=== PATIENT | female | born 1955 | race Caucasian/White ===

== ENCOUNTER 2018-08-11 13:59 | Emergency (ER) | payer BC ==
--- OUTSIDE RECORDS SUMMARY | 2018-08-11 14:05 | XMS REPORT | Continuity of Care Document ---
:1955 External Reference #:[id number] Author Name Ute Jeffers Care Team Providers Name Role Phone Zohra Klein MD Primary Care Physician Unavailable Payers Type Date Identification Numbers Payment Provider Subscriber Policy Number: [id number] [employer] Courtney Acuña PayID: [id number] [address] [address] [place] [id number] Advance Directives Type Date Description Status Comment Other Directive 06/27/2017 Health Care Proxy Current and Verified Problems Date Description Provider Status Onset: 04/08/2011 Hyperlipidemia Macy Enriquez, N.P. Active Onset: 03/12/2015 Paroxysmal ventricular Brent Phillips M.D., [facility], Active tachycardia [facility] Onset: 04/08/2011 Malignant tumor of urinary Macy Enriquez, N.P. Active bladder Onset: 12/19/2013 Premature beats Brent Phillips M.D., [facility], Active [facility] Onset: 12/18/2014 Palpitations Brent Phillips M.D., [facility], Active [facility] Family History Date Family Member(s) Problem(s) Comments General Heart Disease : (age 58 Father due to [place] Smoker Years) Mother Heart Valve Disease Aortic Valve Replacement, Hyperlipidemia, ? 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 ETOH Use Denies alcohol use Tobacco Use Start: Unknown End: Patient is a former smoker Unknown Recreational Drug Use Never Used Drugs Smoking Status Reviewed: 07/31/18 Patient is a former smoker Exercise Type/Frequency Exercises sporadically Allergies, Adverse Reactions, Alerts Description No Known Drug Allergies Medications Medication Date Status Form Strength Qnty SIG Indications Ordering Provider Nystatin 07/10 Active Ointment [id number] 15gm Apply thin L29.2 t/GM layer on MD [place] affected area twice a day Omeprazole 08/15 Active Capsules 20mg 90cap [address] s every day Varn, N.P. Paroxetine HCL 09/28 Active Tablets 20mg 30tab 1 by mouth s every day Varn, N.P. Metoprolol 01/29 Active Tablets 25mg 60tab 1 by mouth I49.3 Macy Succinate ER 24HR s twice a Varn, N.P. day Crestor 04/16 Active Tablets 10mg 90tab 1 by mouth s every day Varn, N.P. Advil PM Active Capsules 200-25mg 1 po qhs Unknown /0000 Vitamin D-3 Active Capsules 1000Unit 1 by mouth Unknown /0000 every day Bactrim DS 04/30 Hx Tablets 800-160mg 20tab one by s mouth Varn, N.P. - twice a 05/10 day for days Bactrim DS 04/23 Hx Tablets 800-160mg 14tab one by s mouth Varn, N.P. - twice a 04/30 day for days Fluconazole 02/05 Hx Tablets 150mg 2tabs one by mouth december Varn, N.P. - repeat in 07/31 3 days needed Methylprednisolone 09/04 Hx TBPK 4mg QS as M25.511 Oliverio directed HASEEB Solomon - on package 09/09 Ranitidine HCL 06/26 Hx Tablets 150mg 60tab take one K21.9 s tablet by Varn, N.P. - mouth 08/15 twice a day Fluconazole 06/26 Hx Tablets 150mg 2tabs one by N77.1 mouth december Varn, N.P. - repeat in 07/02 3 days needed Lotrisone 06/26 Hx Cream 1-0.05% 15gm apply N77.1 externally Varn, N.P. - bid-tid 07/10 Vitamin D3 05/15 Hx Capsules [id number] 8caps one by mouth once Varn, N.P. - weekly 07/14 Metoprolol 12/18 Hx Tablets 25mg 30tab 1 by mouth 427.69 Brent Succinate ER 24HR s every day Lydia Phillips M.D., 01/29 [facility] Escitalopram 06/25 Hx Tablets 10mg 30tab 1 by mouth F41.9 s every day Varn, N.P. - 09/28 Ciprofloxacin HCL 03/19 Hx Tablets 250mg 14tab one by 599.0 s mouth Varn, N.P. - twice a 03/26 day for days Ebro 07/17 Hx Tablets 5-325mg 40tab 1-2 po s q4-6h prn Sp-Nawaf - post op Sharri oh 08/28 pain Cipro 05/25 Hx Tablets 250mg 14tab one by 599.0 s nouth Varn, N.P. - twice 06/01 daily for 7 days Cephalexin 05/18 Hx Tablets 500mg 21tab one three 706.2 s times Varn, N.P. - daily for 05/25 Cephalexin 06/07 Hx Tablets 500mg 21tab one three 681.02 s times Marina, - daily for M.D., FACP 06/14 Tylenol PM 04/08 Hx Tablets 2 tablets at bedtime Lydia Gray M.D., FACP 04/13 Herbal Menapausal 04/08 Hx 1 qd Lydia Gray M.D., FACP 11/01 Crestor 02/07 Hx Tablets 5mg 30tab Take 1 s Tablet By Cotton, - Mouth Once M.D. 04/16 Medications Administered in Office Medication Date Status Form Strength Qnty SIG Indications Ordering Provider Depomedrol Administered Injection Ninfa 40MG 018 Sharri Ernandez Depomedrol Administered Injection Trihsa 40MG 017 Bitting, RPA-C Depomedrol Administered Injection Trisha 40MG 016 Bitting, RPA-C Technetium TC Administered Injection Zackery Mullen 99M 015 Addi Burrell M.D., FACC, Per Unit Dose FASNC Up To 40 Millicuries Technetium TC Administered Injection Stephen FMichael 99M 015 Addi Garibay M.D. Per Unit Dose Up To 40 Millicuries Celestone 3 mg Administered Injection Ayesha and 3mg 014 Yohan kinney M.D. Technetium TC Administered Injection Brent 99M 013 Addi Phillips M.D., FACC, Per Unit Dose FSCAI Up To 40 Millicuries Celestone 3 mg Administered Injection Ayesha and 3mg 013 Yohan kinney M.D. Celestone 3 mg Administered Injection Ayesha and 3mg 013 Yohan kinney M.D. Celestone 3 mg Administered Injection Ayesha and 3mg 013 Yohan kinney M.D. Celestone 3 mg Administered Injection Ayesha and 3mg 013 Yohan kinney M.D. Celestone 3 mg Administered Injection Ayesah and 3mg 013 Yohan kinney M.D. Celestone 3 mg Administered Injection Ayesha and 3mg 013 Yohan kinney M.D. Immunizations CPT Code Status Date Vaccine Lot # [id number] Given 05/05/2018 Influenza Virus Vaccine, Quadrivalent, Split, Preservative Free 52974 Given 04/10/2017 Pneumonia Vaccine 41487 Given 04/10/2017 Influenza Virus Vaccine, Quadrivalent, Split, Preservative Free 67454 Given 05/05/2016 Tdap - Tetanus/Diptheria/Acellular Pertussis Q2035 Given 04/20/2016 Afluria Vaccine 04986 Given 05/11/2015 Zoster (Zostavax) Q2035 Given 04/27/2015 Afluria Vaccine 36399 Given 04/27/2015 Pneumococcal Conjugate Vaccine 13 Valent For Intramuscular Use 28795 Given 04/22/2014 Influenza Virus 3Yrs & Over 53826 Given 04/22/2014 Influenza Virus 3Yrs & Over Q2035 Given 04/17/2013 Afluria Vaccine Q2038 Given 04/19/2012 Fluzone Vaccine 70068 Given 04/28/2011 Influenza Virus 3Yrs & Over 38985 Given 05/28/2007 Influenza Virus 3Yrs & Over 43412 Given 12/05/2006 Tdap - Tetanus/Diptheria/Acellular Pertussis Vital Signs Date Vital Result Comment 07/31/2018 10:17am Height 56 inches 4'8" Weight 154.75 lb Heart Rate 80 /min BP Systolic 132 mmHg BP Diastolic 73 mmHg Body Temperature 97.3 F O2 % BldC Oximetry 97 % BMI (Body Mass Index) 34.7 kg/m2 07/10/2018 4:24pm Height 58 inches 4'10" Weight 151.00 lb Heart Rate 74 /min BP Systolic 127 mmHg BP Diastolic 82 mmHg Body Temperature 97.9 F O2 % BldC Oximetry 98 % BMI (Body Mass Index) 31.6 kg/m2 05/09/2018 3:43pm Height 58 inches 4'10" Weight 156.00 lb Heart Rate 80 /min BP Systolic Sitting 116 mmHg BP Diastolic Sitting 68 mmHg BP Systolic Standing 118 mmHg BP Diastolic Standing 68 mmHg BMI (Body Mass Index) 32.6 kg/m2 11/29/2017 2:31pm Heart Rate 91 /min BP Systolic 126 mmHg BP Diastolic 82 mmHg Respiratory Rate 16 /min Body Temperature 98.1 F Pain Level 5 09/04/2017 3:53pm Heart Rate 90 /min BP Systolic 138 mmHg BP Diastolic 80 mmHg Body Temperature 97.6 F O2 % BldC Oximetry 97 % 06/26/2017 9:15am Height 59 inches 4'11" Weight 148.75 lb Heart Rate 78 /min BP Systolic 122 mmHg BP Diastolic 82 mmHg Body Temperature 97.3 F O2 % BldC Oximetry 94 % BMI (Body Mass Index) 30.0 kg/m2 03/08/2017 8:49am Height 59 inches 4'11" Heart Rate 76 /min BP Systolic 124 mmHg BP Diastolic 84 mmHg Body Temperature 97.9 F 07/20/2016 2:35pm Height 58 inches 4'10" Weight 142.00 lb Heart Rate 78 /min BP Systolic 125 mmHg BP Diastolic 77 mmHg BMI (Body Mass Index) 29.7 kg/m2 05/27/2016 1:27pm Height 57.5 inches 4'9.50" Weight 141.00 lb Heart Rate 86 /min BP Systolic Sitting 122 mmHg BP Diastolic Sitting 76 mmHg Respiratory Rate 15 /min Body Temperature 98.4 F O2 % BldC Oximetry 98 % BMI (Body Mass Index) 30.0 kg/m2 02/25/2016 2:07pm Height 56 inches 4'8" Weight 139.00 lb w/o shoes Heart Rate 94 /min BP Systolic Sitting 120 mmHg Ra reg cuff BP Diastolic Sitting 82 mmHg Ra reg cuff BP Systolic Standing 118 mmHg Ra reg cuff BP Diastolic Standing 80 mmHg Ra reg cuff BMI (Body Mass Index) 31.2 kg/m2 Ejection Fraction 66% echo 11/22/11 05/22/2015 3:04pm Height 56 inches 4'8" Weight 140.00 lb Heart Rate 82 /min BP Systolic Sitting 124 mmHg BP Diastolic Sitting 85 mmHg Body Temperature 96.9 F O2 % BldC Oximetry 98 % BMI (Body Mass Index) 31.4 kg/m2 03/12/2015 2:06pm Height 58 inches 4'10" Weight 139.00 lb Heart Rate 76 /min 94 BP Systolic Sitting 124 mmHg right arm, reg cuff BP Diastolic Sitting 78 mmHg right arm, reg cuff BP Systolic Standing 118 mmHg right arm, reg cuff BP Diastolic Standing 74 mmHg right arm, reg cuff Respiratory Rate 16 /min BMI (Body Mass Index) 29.0 kg/m2 Ejection Fraction 67% 02/18/15 Nem 01/29/2015 2:37pm Height 58 inches 4'10" Weight 138.00 lb Heart Rate 74 /min 82 BP Systolic Sitting 122 mmHg left arm, reg cuff BP Diastolic Sitting 84 mmHg left arm, reg cuff BP Systolic Standing 120 mmHg left arm, reg cuff BP Diastolic Standing 84 mmHg left arm, reg cuff Respiratory Rate 16 /min BMI (Body Mass Index) 28.8 kg/m2 Ejection Fraction 66% 11/22/11 12/18/2014 2:03pm Height 58 inches 4'10" Weight 132.00 lb Heart Rate 90 /min 108 BP Systolic Sitting 126 mmHg right arm, reg cuff BP Diastolic Sitting 70 mmHg right arm, reg cuff BP Systolic Standing 124 mmHg right arm, reg cuff BP Diastolic Standing 70 mmHg right arm, reg cuff Respiratory Rate 16 /min BMI (Body Mass Index) 27.6 kg/m2 Ejection Fraction 66% 11/22/11 06/25/2014 9:16am Weight 139.00 lb Heart Rate 89 /min BP Systolic Sitting 138 mmHg BP Diastolic Sitting 72 mmHg Body Temperature 98.5 F O2 % BldC Oximetry 97 % 05/28/2014 8:20am Height 58 inches 4'10" Weight 138.00 lb Heart Rate 93 /min BP Systolic 135 mmHg BP Diastolic 83 mmHg BMI (Body Mass Index) 28.8 kg/m2 05/16/2014 1:21pm Height 58 inches 4'10" Heart Rate 90 /min BP Systolic 132 mmHg BP Diastolic 87 mmHg 05/02/2014 3:13pm Height 58 inches 4'10" Weight 138.00 lb Heart Rate 120 /min BP Systolic Sitting 118 mmHg BP Diastolic Sitting 64 mmHg BMI (Body Mass Index) 28.8 kg/m2 04/11/2014 1:07pm Height 58 inches 4'10" Weight 135.00 lb Heart Rate 83 /min BP Systolic 133 mmHg BP Diastolic 80 mmHg BMI (Body Mass Index) 28.2 kg/m2 03/19/2014 10:27am Weight 138.75 lb Heart Rate 106 /min BP Systolic 110 mmHg BP Diastolic 70 mmHg Body Temperature 98.0 F 12/19/2013 3:05pm Height 56 inches 4'8" Weight 139.00 lb Heart Rate 94 /min 102 BP Systolic Sitting 122 mmHg left arm, reg cuff BP Diastolic Sitting 80 mmHg left arm, reg cuff BP Systolic Standing 124 mmHg left arm, reg cuff BP Diastolic Standing 86 mmHg left arm, reg cuff Respiratory Rate 20 /min BMI (Body Mass Index) 31.2 kg/m2 09/25/2013 12:48pm Heart Rate 92 /min BP Systolic Sitting 120 mmHg BP Diastolic Sitting 76 mmHg Respiratory Rate 16 /min 07/17/2013 9:55am Height 58 inches 4'10" Weight 135.00 lb Heart Rate 83 /min BP Systolic 124 mmHg BP Diastolic 81 mmHg BMI (Body Mass Index) 28.2 kg/m2 05/30/2013 9:27am Height 56.5 inches 4'8.50" Weight 137.00 lb Heart Rate 00138 /min BP Systolic Sitting 112 mmHg LA reg cuff BP Diastolic Sitting 84 mmHg LA reg cuff BP Systolic Standing 118 mmHg LA BP Diastolic Standing 86 mmHg LA Respiratory Rate 16 /min BMI (Body Mass Index) 30.2 kg/m2 04/19/2013 2:52pm Height 56.25 inches 4'8.25" Weight 138.00 lb Heart Rate 100 /min BP Systolic Sitting 122 mmHg BP Diastolic Sitting 80 mmHg BMI (Body Mass Index) 30.7 kg/m2 05/25/2012 2:27pm Height 56.25 inches 4'8.25" Weight 137.00 lb Heart Rate 86 /min BP Systolic Sitting 124 mmHg BP Diastolic Sitting 68 mmHg BMI (Body Mass Index) 30.4 kg/m2 05/18/2012 3:53pm Height 56.25 inches 4'8.25" Weight 136.00 lb Heart Rate 56 /min BP Systolic Sitting 104 mmHg BP Diastolic Sitting 70 mmHg BMI (Body Mass Index) 30.2 kg/m2 05/16/2012 10:03am Height 56.25 inches 4'8.25" Heart Rate 84 /min BP Systolic Sitting 114 mmHg BP Diastolic Sitting 68 mmHg 04/13/2012 2:58pm Height 56.25 inches 4'8.25" Weight 136.00 lb Heart Rate 80 /min BP Systolic Sitting 130 mmHg BP Diastolic Sitting 78 mmHg BMI (Body Mass Index) 30.2 kg/m2 11/09/2011 10:41am Height 56.5 inches 4'8.50" Weight 138.75 lb Heart Rate 76 /min BP Systolic Sitting 120 mmHg BP Diastolic Sitting 74 mmHg BMI (Body Mass Index) 30.6 kg/m2 11/02/2011 10:31am Height 56.5 inches 4'8.50" Weight 138.00 lb Heart Rate 100 /min irregular BP Systolic Sitting 110 mmHg BP Diastolic Sitting 72 mmHg BMI (Body Mass Index) 30.4 kg/m2 06/07/2011 4:26pm Height 56.5 inches 4'8.50" Heart Rate 80 /min BP Systolic Sitting 110 mmHg l BP Diastolic Sitting 74 mmHg l Body Temperature 97.7 F 04/08/2011 2:43pm Height 56.5 inches 4'8.50" Weight 132.00 lb Heart Rate 84 /min BP Systolic 104 mmHg BP Diastolic 62 mmHg BMI (Body Mass Index) 29.1 kg/m2 02/16/2011 1:41pm Height 56.5 inches 4'8.50" Weight 131.00 lb Heart Rate 72 /min BP Systolic Sitting 98 mmHg BP Diastolic Sitting 66 mmHg BMI (Body Mass Index) 28.8 kg/m2 Results Test Date Facility Test Result H/L Range Note Comp Metabolic Panel 07/21/2018 [facility] Sodium 140 mmol/L N 135-[address] [place] [address] [phone] Potassium 4.4 mmol/L N 3.5-5.0 Chloride 103 mmol/L N 101-111 Co2 Carbon Dioxide 29 mmol/L N 22-32 Anion Gap 8 mmol/L N 2-11 Glucose 103 mg/dL High 70-100 Blood Urea Nitrogen 17 mg/dL N 6-24 Creatinine 0.75 mg/dL N 0.51-0.95 BUN/Creatinine Ratio 22.7 High 8-20 Calcium 10.0 mg/dL N 8.6-10.3 Total Protein 7.1 g/dL N 6.4-8.9 Albumin 4.5 g/dL N 3.2-5.2 Globulin 2.6 g/dL N 2-4 Albumin/Globulin Ratio 1.7 N 1-3 Total Bilirubin 0.80 mg/dL N 0.2-1.0 Alkaline Phosphatase 140 U/L High 34-104 Alt 41 U/L N 7-52 Ast 24 U/L N 13-39 Egfr Non- 78.0 >60 Egfr 94.4 >60 1 Laboratory test 07/21/2018 [facility] TSH (Thyroid 2.46 mcIU/mL N 0.34-5.[address] Stim Horm) [place] [address] [phone] Vitamin D Total 25(Oh) 28.4 ng/mL N 20-50 Lipid Profile 07/21/2018 [facility] Triglycerides 207 mg/dL 2 (Trig/Chol/HDL) [address] [place] [address] [phone] Cholesterol 215 mg/dL 3 HDL Cholesterol 49.4 mg/dL 4 LDL Cholesterol 124 mg/dL 5 Urine Culture And 04/24/2018 [facility] Urine SEE RESULT [address] [place] [address] [phone] Laboratory test 06/26/2017 [facility] HPV Rna Negative Negative 7, [address] Ww/[place] [address] Genotype [phone] Cytology SEE RESULT BELOW 9 Comp Metabolic Panel 06/09/2017 [facility] Sodium 135 mmol/L N 133-[address] [place] [address] [phone] Potassium 4.2 mmol/L N 3.5-5.0 Chloride 101 mmol/L N 101-111 Co2 Carbon Dioxide 27 mmol/L N 22-32 Anion Gap 7 mmol/L N 2-11 Glucose 93 mg/dL N 70-100 Blood Urea Nitrogen 24 mg/dL N 6-24 Creatinine 0.75 mg/dL N 0.51-0.95 BUN/Creatinine Ratio 32.0 High 8-20 Calcium 9.9 mg/dL N 8.6-10.3 Total Protein 7.3 g/dL N 6.4-8.9 Albumin 4.4 g/dL N 3.2-5.2 Globulin 2.9 g/dL N 2-4 Albumin/Globulin Ratio 1.5 N 1-3 Total Bilirubin 0.60 mg/dL N 0.2-1.0 Alkaline Phosphatase 111 U/L High 34-104 Alt 38 U/L N 7-52 Ast 20 U/L N 13-39 Egfr Non- 78.3 N >60 Egfr 100.7 N >60 10 Lipid Profile 06/09/2017 [facility] Triglycerides 190 mg/dL N 11 (Trig/Chol/HDL) [address] [place], [place] [id number] [phone] Cholesterol 209 mg/dL N 12 HDL Cholesterol 50.7 mg/dL N 13 LDL Cholesterol 120 mg/dL N 14 Laboratory test 07/05/2016 [facility] Vitamin D Total 30.7 ng/ mL N 30-[address] 25(Oh) [place] [address] [phone] Laboratory test 06/22/2016 [facility] Surgical Pathology SEE RESULT [address] [place] [address] [phone] Lipid Profile 05/11/2016 [facility] Triglycerides 188 mg/dL N 16 (Trig/Chol/HDL) [address] [place] [address] [phone] Cholesterol 203 mg/dL N 17 HDL Cholesterol 50.5 mg/dL N 18 LDL Cholesterol 115 mg/dL N 19 Comp Metabolic Panel 05/11/2016 [facility] Sodium 137 mmol/L N 133-145 [address] [place] [address] [phone] Potassium 4.3 mmol/L N 3.5-5.0 Chloride 102 mmol/L N 101-111 Co2 Carbon Dioxide 24 mmol/L N 22-32 Anion Gap 11 mmol/L N 2-11 Glucose 91 mg/dL N 70-100 Blood Urea Nitrogen 15 mg/dL N 6-24 Creatinine 0.68 mg/dL N 0.51-0.95 BUN/Creatinine Ratio 22.1 High 8-20 Calcium 9.4 mg/dL N 8.6-10.3 Total Protein 6.8 g/dL N 6.4-8.9 Albumin 4.0 g/dL N 3.2-5.2 Globulin 2.8 g/dL N 2-4 Albumin/Globulin Ratio 1.4 N 1-3 Total Bilirubin 0.70 mg/dL N 0.2-1.0 Alkaline Phosphatase 74 U/L N 34-104 Alt 24 U/L N 7-52 Ast 19 U/L N 13-39 Egfr Non- 88.0 N >60 Egfr 113.1 N >60 20 Laboratory test 05/11/2016 [facility] TSH (Thyroid 1.55 mcIU/mL N 0.34-5.[address] Stim Horm) [place] [address] [phone] Vitamin D Total 25(Oh) 10.9 ng/mL Low 30-50 Comp Metabolic Panel 05/06/2015 [facility] Sodium 140 mmol/L N 133-145 [address] [place] [address] [phone] Potassium 4.0 mmol/L N 3.5-5.0 Chloride 105 mmol/L N 101-111 Co2 Carbon Dioxide 29 mmol/L N 22-32 Anion Gap 6 mmol/L N 2-11 Glucose 96 mg/dL N 70-100 Blood Urea Nitrogen 13 mg/dL N 6-24 Creatinine 0.62 mg/dL N 0.51-0.95 BUN/Creatinine Ratio 21.0 High 8-20 Calcium 9.6 mg/dL N 8.6-10.3 Total Protein 6.9 g/dL N 6.4-8.9 Albumin 4.3 g/dL N 3.2-5.2 Globulin 2.6 g/dL N 2-4 Albumin/Globulin Ratio 1.7 N 1-3 Total Bilirubin 0.70 mg/dL N 0.2-1.0 Alkaline Phosphatase 78 U/L N 34-104 Alt 24 U/L N 7-52 Ast 20 U/L N 13-39 Egfr Non- 98.2 N >60 Egfr 126.3 N >60 21 Lipid Profile 05/06/2015 [facility] Triglycerides 174 mg/dL N 22 (Trig/Chol/HDL) [address] [place] [address] [phone] Cholesterol 195 mg/dL N 23 HDL Cholesterol 54.8 mg/dL N 24 LDL Cholesterol 105 mg/dL N 25 Basic Metabolic Panel 01/29/2015 Sodium 137 mmol/L N 133-145 Potassium 4.2 mmol/L N 3.5-5.0 Chloride 103 mmol/L N 101-111 Co2 Carbon Dioxide 27 mmol/L N 22-32 Anion Gap 7 mmol/L N 2-11 Glucose 86 mg/dL N 70-100 Blood Urea Nitrogen 14 mg/dL N 6-24 Creatinine 0.65 mg/dL N 0.51-0.95 BUN/Creatinine Ratio 21.5 High 8-20 Calcium 9.8 mg/dL N 8.6-10.3 Egfr Non- 93.0 N >60 Egfr 119.6 N >60 26 Laboratory test 01/29/2015 Magnesium 2.2 mg/dL N 1.9-2.7 finding Laboratory test 05/02/2014 [facility] Cytology RUN DATE: [address] 05/05/ <[place] [address] NOTE> [phone] HPV High Risk 05/02/2014 [facility] Human Papillomavirus See Comment N [address] [place] [address] [phone] HPV High Risk Type 16, PCR Negative N Negative HPV High Risk Type 18, PCR Negative N Negative HPV Other Risk types Negative N Negative 29 Urinalysis Profile 03/19/2014 [facility] Urine Color Yellow N [address] [place] [address] [phone] Urine Appearance Cloudy N Urine Specific [place] 1.016 N 1.010-1.030 Urine pH 7.0 N 5-9 Urine Urobilinogen Negative N Negative Urine Ketones Negative N Negative Urine Protein Negative N Negative Urine Leukocytes 2+ Abnormal Negative Urine Blood 1+ Abnormal Negative Urine Nitrite Negative N Negative Urine Bilirubin Negative N Negative Urine Glucose Negative N Negative Urine White Blood Cell 1+(6-10/hpf) Abnormal Absent Urine Red Blood Cell 2+(6-10/hpf) Abnormal Absent Urine Bacteria Absent N Absent Urine Squamous Epithelial Cell Present Abnormal Absent Urine Calcium Oxalate Cryst Present Abnormal Absent Urine Culture And 03/19/2014 [facility] Urine Culture (SEE NOTE ) 30 [address] [place] [address] [phone] Ua Routine 03/19/2014 [facility] [employer] [facility] Ua Specific 1.005 [place] Ua PH 7.5 Ua Color yellow Ua Appera clear Ua WBC mod Ua Protein trace Ua Glucose neg Ua Ketones trace Ua Bilirubin trace Ua Urobilinogen normal Ua Nitrite neg Ua Occult Blood trace Lipid Profile 03/19/2014 [facility] Triglycerides 219 mg/dL N 31 (Trig/Chol/HDL) [address] [place] [address] [phone] Cholesterol 201 mg/dL N 32 HDL Cholesterol 56.2 mg/dL N 33 LDL Cholesterol 101 mg/dL N 34 Liver Function 03/19/2014 [facility] Total Protein 6.8 g/dL N 6.4-8.9 Panel [address] [place] [address] [phone] Albumin 4.3 g/dL N 3.2-5.2 Globulin 2.5 g/dL N 2-4 Albumin/Globulin Ratio 1.7 N 1-3 Total Bilirubin 0.60 mg/dL N 0.2-1.0 Direct Bilirubin 0.10 mg/dL N 0.03-0.18 Indirect Bilirubin 0.5 mg/dL N 0.3-1.0 Alkaline Phosphatase 77 U/L N 34-104 Alt 16 U/L N 7-52 Ast 14 U/L N 13-39 Lipid Profile 06/05/2013 [facility] Triglycerides 105 mg/dL 40-200 (Trig/Chol/HDL) [address] [place] [address] [phone] Cholesterol 192 mg/dL Less than 200 HDL Cholesterol 64 mg/dL High 40-60 35 Cholesterol/HDL Ratio 3.0 Average 1-4.44 LDL Cholesterol 107.0 High Less Than 100 36 Liver Function 06/05/2013 [facility] Total Protein 6.4 g/dL 6.2-8.1 Panel [address] [place] [address] [phone] Albumin 3.9 g/dL 3.6-5.4 Globulin 2.5 g/dL 2-4 Albumin/Globulin Ratio 1.6 1-3 Total Bilirubin 0.5 mg/dL 0.4-1.5 Direct Bilirubin 0.1 mg/dL 0.1-0.5 Indirect Bilirubin 0.4 mg/dL 0.3-1.0 Alkaline Phosphatase 70 U/L 30-110 Alt 20 U/L 14-54 Ast 21 U/L 12-42 Laboratory 06/05/2013 [facility] Hepatitis C Nonreactive Nonreactive 37 test finding [address] [facility] [place] [address] [phone] Comp Metabolic 04/10/2013 [facility] Sodium 139 mmol/L 133- 145 Panel [address] [place] [address] [phone] Potassium 4.3 mmol/L 3.5-5.0 Chloride 105 mmol/L 101-111 Co2 Carbon Dioxide 27.0 mmol/L 22-32 Anion Gap 7.0 mmol/L 2-11 Glucose 99 mg/dL 70-100 Blood Urea Nitrogen 12 mg/dL 6-24 Creatinine 0.60 mg/dL 0.50-1.40 BUN/Creatinine Ratio 20.0 8-20 Calcium 10.0 mg/dL High 8.1-9.9 Total Protein 6.3 g/dL 6.2-8.1 Albumin 3.9 g/dL 3.6-5.4 Globulin 2.4 g/dL 2-4 Albumin/Globulin Ratio 1.6 1-3 Total Bilirubin 0.6 mg/dL 0.4-1.5 Alkaline Phosphatase 58 U/L 30-110 Alt 24 U/L 14-54 Ast 21 U/L 12-42 Egfr Non- 102.7 >60 Egfr 132.1 >60 38 Laboratory 04/10/2013 [facility] TSH (Thyroid 0.89 0.34-5.60 test finding [address] [facility] Stimulating miu/[place] [address] [facility]) [phone] Lipid Profile 04/10/2013 [facility] Triglycerides 201 mg/dL High 40-200 (Trig/Chol/HDL [address] ) [place] [address] [phone] Cholesterol 235 mg/dL High Less than 200 HDL Cholesterol 61 mg/dL High 40-60 39 Cholesterol/HDL Ratio 3.9 Average 1-4.44 LDL Cholesterol 133.8 High Less Than 100 40 Ua W/Microscopic 05/25/2012 [facility] [employer] [employer] [facility] Ua Appera Cloudy Ua Bacteria NEG Ua Bilirubin Negative Ua Blood Large Ua Casts Hyaline NEG Ua Casts Other NEG Ua Color Brown/Red Ua Crystals NEG Ua Epithelial Cells NEG Ua Glucose Negative Ua Ketones Negative Ua Leuko Negative Ua Nitrite Negative Ua PH 5 Ua Protein 30 Ua RBC MOD Ua Specific [place] 1.025 Ua Urobilinogen Negative Ua WBC FEW Ua Yeast NEG Urine Culture & 05/25/2012 [facility] Urine Culture (SEE NOTE) [address] [place] [address] [phone] Laboratory test 05/18/2012 [facility] Surgical Pathology RUN DATE: [address] [place] [address] <SEE NOTE> [phone] Laboratory test 04/18/2012 [facility] TSH 0.83 0.34- finding DRIVE MIU/ML 5.60 [place] [address] [phone] Lipid Profile 04/18/2012 [facility] Triglyceride 82 mg/dL 40- 20 (Trig/Chol/HDL) [address] [place] [address] [phone] Cholesterol 197 mg/dL Less Than 200 43 High Density Lipoprotein 57 mg/dL 40-60 44 Cholesterol/HDL Ratio 3.46 AVERAGE 1-4.44 Low Density Lipoprotein 124 mg/dL High Less Than 100 45 Comp Metabolic Panel 04/18/2012 [facility] Sodium 140 mmol/L 135-[address] [place] [address] [phone] Potassium 4.3 mmol/L 3.5-5.0 Chloride 110 mmol/L 101-111 Co2 (Carbon Dioxide) 25.0 mmol/L 22-32 Anion Gap 5.0 mmol/L 2-11 46 Glucose 98 mg/dL 70-100 BUN 21 mg/dL 6-24 Creatinine 0.6 mg/dL 0.50-1.40 One Over Creatinine 1.66 BUN/Creatinine Ratio 35.0 High 8-20 Calcium 9.5 mg/dL 8.1-9.9 Total Protein 6.7 GM/DL 6.2-8.1 Albumin 3.9 GM/DL 3.6-5.4 Globulin 2.8 GM/DL 2-4 Albumin/Globulin Ratio 1.4 1-3 Bilirubin Total 0.7 mg/dL 0.4-1.5 47 Alkaline Phosphatase 61 U/L 30-110 Alt (SGPT) 27 U/L 14-54 Ast (Sgot) 23 U/L 12-42 eGFR Non- 103.0 > 60 eGFR 132.5 > 60 48 Ua Routine 04/13/2012 [facility] Ua Specific [place] 1.010 Ua PH 5 Ua Color dark yellow Ua Appera clear Ua WBC neg Ua Protein neg Ua Glucose neg Ua Ketones neg Ua Bilirubin neg Ua Urobilinogen neg Ua Nitrite neg Ua Occult Blood Non hem trace CBC With Manual 11/02/2011 [facility] White Blood 6.9 CUMM 4.8-10.[address] [place] [address] [phone] Red Cell Count 4.40 CUMM 4.2-5.4 Hemoglobin 13.7 g/dL 12.0-16.0 Hematocrit 40 % 35-47 Mean Corpuscular Volume 91 um3 79-97 Mean Corpuscular Hemoglob 31 pg 27-31 Mean Corpuscular HGB Cone 34 g/dL 32-36 Redcell Distribution WDTH 14 % 10.5-15 Platelet Count 319 CUMM 150-450 Mean Platelet Volume 10.1 um3 7.4-10.4 Polysegmented Neutrophil 50 % 38-83 Lymphocyte 45 % 25-47 Monocyte 3 % 0-13 Eosinophil 1 % 0-6 Basophil 1 % 0-2 Absolute Neutrophil Count 3.4 RBC Morphology NORMAL Comp Metabolic Panel 11/02/2011 [facility] Sodium 138 mmol/L 135-[address] [place] [address] [phone] Potassium 3.9 mmol/L 3.5-5.0 Chloride 99 mmol/L Low 101-111 Co2 (Carbon Dioxide) 26.0 mmol/L 22-32 Anion Gap 13.0 mmol/L High 2-11 49 Glucose 102 mg/dL High 70-100 BUN 15 mg/dL 6-24 Creatinine 0.5 mg/dL Low 0.50-1.40 One Over Creatinine 2.00 BUN/Creatinine Ratio 30.0 High 8-20 Calcium 9.6 mg/dL 8.1-9.9 Total Protein 7.4 GM/DL 6.2-8.1 Albumin 4.2 GM/DL 3.6-5.4 Globulin 3.2 GM/DL 2-4 Albumin/Globulin Ratio 1.3 1-3 Bilirubin Total 1.0 mg/dL 0.4-1.5 50 Alkaline Phosphatase 66 U/L 30-110 Alt (SGPT) 26 U/L 14-54 Ast (Sgot) 22 U/L 12-42 eGFR Non- 127.6 > 60 eGFR 164.1 > 60 51 Laboratory test 11/02/2011 [facility] TSH 1.04 MIU/ML 0.34- 5.60 finding [address] [place] [address] [phone] Troponin-I 0 NG/ML 0-0.06 52 Lipid Profile 04/13/2011 [facility] Triglyceride 80 mg/dL 40- 200 (Trig/Chol/HDL) [address] [place] [address] [phone] Cholesterol 201 mg/dL High Less Than 200 53 High Density Lipoprotein 62 mg/dL High 40-60 54 Cholesterol/HDL Ratio 3.24 AVERAGE 1-4.44 Low Density Lipoprotein 123 mg/dL High Less Than 100 55 Comp Metabolic Panel 04/13/2011 [facility] Sodium 139 mmol/L 135-145 [address] [place] [address] [phone] Potassium 4.2 mmol/L 3.5-5.0 Chloride 107 mmol/L 101-111 Co2 (Carbon Dioxide) 27.0 mmol/L 22-32 Anion Gap 5.0 mmol/L 2-11 56 Glucose 93 mg/dL 70-100 BUN 14 mg/dL 6-24 Creatinine 0.6 mg/dL 0.50-1.40 One Over Creatinine 1.66 BUN/Creatinine Ratio 23.3 High 8-20 Calcium 9.4 mg/dL 8.1-9.9 Total Protein 6.5 GM/DL 6.2-8.1 Albumin 3.9 GM/DL 3.6-5.4 Globulin 2.6 GM/DL 2-4 Albumin/Globulin Ratio 1.5 1-3 Bilirubin Total 1.0 mg/dL 0.4-1.5 57 Alkaline Phosphatase 56 U/L 30-110 Alt (SGPT) 27 U/L 14-54 Ast (Sgot) 26 U/L 12-42 eGFR Non- 103.4 > 60 eGFR 133.0 > 60 58 Laboratory test 04/13/2011 [facility] TSH 1.71 MIU/ML 0.34- 5.[address] [place] [address] [phone] Laboratory test 04/08/2011 [facility] Cytology [address] ---- <[place] [address] NOTE> [phone] 1 Because ethnic data is not always readily available, this report includes an eGFR for both -Americans and non- Americans. The National Kidney Disease Education Program (NKDEP) does not endorse the use of the MDRD equation for patients that are not between the ages of 18 and 70, are , have extremes of body size, muscle mass, or nutritional status, or are non- or non-. According to the National Kidney Foundation, irrespective of diagnosis, the stage of the disease is based on the level of kidney function: Stage Description GFR(mL/min/1.73 m(2)) 1 Kidney damage with normal or decreased GFR 90 2 Kidney damage with mild decrease in GFR 60-89 3 Moderate decrease in GFR 30-59 4 Severe decrease in GFR 15-29 5 Kidney failure <15 (or dialysis) 2 Desirable: <150 Borderline High: 150-199 High: 200-499 Very High: >500 3 Desirable: <200 Borderline High: 200-239 High: >239 4 Low: <40 Desirable: 40-60 High: >60 5 Desirable: <100 Near Optimal: 100-129 Borderline High: 130-159 High: 160-189 Very High: >189 6 SEE RESULT BELOW Name: COURTNEY ACUÑA : [address]: Macy Enriquez NP Acct: [id number] Unit: [id number] AGE: 62 Location: [facility] Re04/24/18 SEX: F Status: REG REF SPEC: [id number] MIKEY: 04/24/[address] [facility] [address]: Macy Enriquez NP REQ: [id number] RECD: 04/24/18 STATUS: RES _ SOURCE: URINE SPDESC: ORDERED: Urine Culture QUERIES: Urine Source: Clean Catch Procedure Result Reported Site Urine Culture Preliminary 04/27/18- 814 ML Organism 1 STAPHYLOCOCCUS AUREUS Western Count 10-25,000 (Moderate) CFU/ML Organism 2 NORMAL RONI Western Count 50-75,000 (Many) CFU/ML * ML - Main Lab . END OF REPORT DEPARTMENT OF PATHOLOGY, [address] [place] [address] Surinder Hernandez M.D. Director [facility] # [id number] The high-risk HPV types detected by the assay include: 16, 18, 31, 33, 35, 39, 45, 51, 52, 56, 58, 59, 66, and 68. 9 SEE RESULT BELOW Name: COURTNEY ACUÑA Ken : 1955 Attend : Macy Enriquez NP Acct: [id number] Unit: [id number] AGE: 61 Location: [facility] Re06/26/17 SEX: F Status: REG REF SPEC: [id number] MIKEY: 06/26/17-[address] [facility] [address]: Macy Enriquez NP REQ: [id number] RECD: 06/26/17-1056 STATUS: SOUT _ ORDERED: TP IMAGE ANAL, HPV/Thin Prep, HPV 16/18 GENE COMMENTS: [id number] FINAL DIAGNOSIS Negative for Intraepithelial lesion or Malignancy A. Ectocervical/Endocervical Specimen Adequacy: Satisfactory of evaluation Transformation zone component cannot be definitely identified due to presence of atrophy or other hormonal changes Patient Information: HPV: High risk HPV RNA testing regardless of pap results. 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 had cone biopsy. Date Time Test Result Flag (u) Normal Range 06/26/17 0957 HPV RNA RFLX GE Negative Negative The high-risk HPV types detected by the assay include: 16, 18, 31, 33, 35, 39, 45, 51, 52, 56, 58, 59, 66, and 68. Signed (signature on file) STERLING Alejo(ASCP) 06/27 5596 This Pap test was evaluated with the assistance of the [employer] MediaPrep Test Imaging System. Due to cytologic findings at the assistant men's soccer coach microscope, comprehensive manual rescreening by a Community Organization Worker may be required. The Pap Smear is a screening test designed to aid in the detection of premalignant and malignant conditions of the uterine cervix. It is not a diagnostic procedure and should not be used as the sole means of detecting cervical cancer. Both false- positive and false- negative reports do occur. Depending on your risk status, a Pap smear should be obtained and evaluated every 1-3 years. END OF REPORT RUN DATE: 06/27/17 [facility] LAB LIVE PAGE 1 Patient: COURTNEY ACUÑA [id number] (Continued) * ML=Testing performed at Main Lab DEPARTMENT OF PATHOLOGY, [address] [place] [address] Surinder Hernandez M.D. Director [facility] # [id number] 10 Because ethnic data is not always readily available, this report includes an eGFR for both -Americans and non- Americans. The National Kidney Disease Education Program (NKDEP) does not endorse the use of the MDRD equation for patients that are not between the ages of 18 and 70, are , have extremes of body size, muscle mass, or nutritional status, or are non- or non-. According to the National Kidney Foundation, irrespective of diagnosis, the stage of the disease is based on the level of kidney function: Stage Description GFR(mL/min/1.73 m(2)) 1 Kidney damage with normal or decreased GFR 90 2 Kidney damage with mild decrease in GFR 60-89 3 Moderate decrease in GFR 30-59 4 Severe decrease in GFR 15-29 5 Kidney failure <15 (or dialysis) 11 Desirable: <150 Borderline High: 150-199 High: 200-499 Very High: >500 12 Desirable: <200 Borderline High: 200-239 High: >239 13 Low: <40 Desirable: 40-60 High: >60 14 Desirable: <100 Near Optimal: 100-129 Borderline High: 130-159 High: 160-189 Very High: >189 15 SEE RESULT BELOW Name: COURTNEY ACUÑA : [address]: Dakota Gomes MD Acct: [id number] Unit: [id number] AGE: 60 Location: ENDO Re06/22/16 SEX: F Status: DEP REF SPEC: [id number] MIKEY: 06/22/16- SUBM DR: Dakota Gomes MD REQ: [id number] RECD: 06/22/161543 STATUS: AMANDA MCMAHAN DR: Macy Enriquez FLIGHT ATTENDANT _ ORDERED: LEVEL IV FINAL DIAGNOSIS Colon, transverse, biopsy: -- Tubular adenoma. -- No high grade dysplasia or malignancy. CLINICAL HISTORY No history given POST-OPERATIVE DIAGNOSIS Colonoscopy into terminal ileum, prep good - small transverse colon polyp removed. Conclusions/Plan: Small polyp removed GROSS DESCRIPTION The specimen is received in formalin labeled, Biopsy Transverse Colon Polyp, and consists of a 0.5 x 0.2 x 0.2 cm justice-pink irregular soft tissue fragment, which is submitted entirely in one cassette. Signed (signature on file) Shannon Workman MD 05/29 1203 END OF REPORT * ML=Testing performed at Main Lab DEPARTMENT OF PATHOLOGY, [address] [place] [address] Surinder Hernandez M.D. Director [facility] # [id number] Desirable <150 Borderline high 150-199 High 200-499 Very High >500 17 Desirable <200 Borderline high 200-239 High >239 18 Low <40 Desirable: 40-60 High: >60 19 Desirable: <100 mg/dL Near Optimal: 100-129 mg/dL Borderline High: 130-159 mg/dL High: 160-189 mg/dL Very High: >189 mg/dL 20 Because ethnic data is not always readily available, this report includes an eGFR for both -Americans and non- Americans. The National Kidney Disease Education Program (NKDEP) does not endorse the use of the MDRD equation for patients that are not between the ages of 18 and 70, are , have extremes of body size, muscle mass, or nutritional status, or are non- or non-. According to the National Kidney Foundation, irrespective of diagnosis, the stage of the disease is based on the level of kidney function: Stage Description GFR(mL/min/1.73 m(2)) 1 Kidney damage with normal or decreased GFR 90 2 Kidney damage with mild decrease in GFR 60-89 3 Moderate decrease in GFR 30-59 4 Severe decrease in GFR 15-29 5 Kidney failure <15 (or dialysis) 21 Because ethnic data is not always readily available, this report includes an eGFR for both -Americans and non- Americans. The National Kidney Disease Education Program (NKDEP) does not endorse the use of the MDRD equation for patients that are not between the ages of 18 and 70, are , have extremes of body size, muscle mass, or nutritional status, or are non- or non-. According to the National Kidney Foundation, irrespective of diagnosis, the stage of the disease is based on the level of kidney function: Stage Description GFR(mL/min/1.73 m(2)) 1 Kidney damage with normal or decreased GFR 90 2 Kidney damage with mild decrease in GFR 60-89 3 Moderate decrease in GFR 30-59 4 Severe decrease in GFR 15-29 5 Kidney failure <15 (or dialysis) 22 Desirable <150 Borderline high 150-199 High 200-499 Very High >500 23 Desirable <200 Borderline high 200-239 High >239 24 Low <40 Desirable: 40-60 High: >60 25 Desirable: <100 mg/dL Near Optimal: 100-129 mg/dL Borderline High: 130-159 mg/dL High: 160-189 mg/dL Very High: >189 mg/dL 26 Because ethnic data is not always readily available, this report includes an eGFR for both -Americans and non- Americans. The National Kidney Disease Education Program (NKDEP) does not endorse the use of the MDRD equation for patients that are not between the ages of 18 and 70, are , have extremes of body size, muscle mass, or nutritional status, or are non- or non-. According to the National Kidney Foundation, irrespective of diagnosis, the stage of the disease is based on the level of kidney function: Stage Description GFR(mL/min/1.73 m(2)) 1 Kidney damage with normal or decreased GFR 90 2 Kidney damage with mild decrease in GFR 60-89 3 Moderate decrease in GFR 30-59 4 Severe decrease in GFR 15-29 5 Kidney failure <15 (or dialysis) 27 RUN DATE: 05/05/14 [facility] LAB LIVE PAGE 1 RUN TIME: 1042 [address] [place], [place] [address] Specimen Inquiry Name: COURTNEY ACUÑA : [address]: Macy Enriquez NP Acct: [id number] Unit: [id number] AGE: 58 Location: [facility] Re05/02/14 SEX: F Status: REG REF SPEC: [id number] MIKEY: 05/02/14-[address] [facility] [address]: Macy Enriquez NP REQ: [id number] RECD: 05/02/14 STATUS: SOUT _ ORDERED: IMAGE ANALYSIS, HPV/Thin Prep FINAL DIAGNOSIS Negative for Intraepithelial lesion or Malignancy COMMENTS: Specimen sent to [facility] in [place], [place] on 05/05/14 by [id number] at 1030. Results will be reported separately. A. Ectocervical/Endocervical Specimen Adequacy: Satisfactory of evaluation Transformation zone component cannot be definitely identified due to presence of atrophy or other hormonal changes Patient Information: HPV: High risk HPV DNA testing regardless of pap results. Actual Specimen Date: 05/02/14 LMP If Unknown: early 50's ?: N Post Menopausal?: Y Hysterectomy?: N Previous Abnormal Pap Smears?:N Signed (signature on file) STERLING Salamanca (ASCP) 05/05/14 1041 This Pap test was evaluated with the assistance of the ThinPrep Test Imaging System. Due to cytologic findings at the assistant men's soccer coach microscope, comprehensive manual rescreening by a Community Organization Worker may be required. The Pap Smear is a screening test designed to aid in the detection of premalignant and malignant conditions of the uterine cervix. It is not a diagnostic procedure and should not be used as the sole means of detecting cervical cancer. Both false- positive and false- negative reports do occur. Depending on your risk status, a Pap smear shoudl be obtained and evaluated every 1-3 years. END OF REPORT * ML=Testing performed at Main Lab DEPARTMENT OF PATHOLOGY, [facility] [employer] [place], [place] [address] Surinder Hernandez M.D. Director [facility] # [id number] RESULT: Ectocervical/Endocervical 29 The following Other High Risk HPV types were not detected: 31, 33, 35, 39, 45, 51, 52, 56, 58, 59, 66, and 68 Test Performed by: [place] [address] Corporate Security Officer: Juan Ramon Fisher III, M.D. 30 RUN DATE: 03/24/14 [facility] LAB LIVE PAGE 1 RUN TIME: [address] [facility] [address] [place], [place] [address] Specimen Inquiry Name: COURTNEY ACUÑA : [address]: Macy Enriquez NP Acct: [id number] Unit: [id number] AGE: 58 Location: [facility] Re03/19/14 SEX: F Status: REG REF SPEC: [id number] MIKEY: 03/19/14-[address] [facility] [address]: Macy Enriquez NP REQ: [id number] RECD: 03/19/14 STATUS: COMP _ SOURCE: URINE SPDESC: ORDERED: Urine Culture QUERIES: Medent Number [id number] Procedure Result Verified Site Urine Culture Final 03/24/14- 1524 ML Organism 1 KLEBSIELLA OXYTOCA Western Count 10-25,000 (Moderate) CFU/ML Organism 2 ENTEROBACTER CLOACAE COMPLEX Western Count 10-25,000 (Moderate) CFU/ML 1. KLEBSIELLA OXYTOCA M.I.C. RX --------- ------ Ampicillin >=32 R Cefazolin <=4 S Cefepime <=1 S Ceftriaxone <=1 S Ciprofloxacin <=0.25 S Gentamicin <=1 S Levofloxacin <=0.12 S Meropenem <=0.25 S Nitrofurantoin 32 S Tetracycline <=1 S Pipercillin/Tazobactam <=4 S Trimethoprim/Sulfamethoxazole <=20 S Amoxicillin/Clavulanic Acid <=2 S Aztreonam <=1 S CONTINUED ON NEXT PAGE * ML=Testing performed at Main Lab DEPARTMENT OF PATHOLOGY, [facility] [employer] [place] [address] Surinder Hernandez M.D. Director [facility] # [id number] RUN DATE: 03/24/14 [facility] LAB LIVE PAGE 2 RUN TIME: [address] [facility] [address] [place], [place] [address] Specimen Inquiry Patient: COURTNEY ACUÑA [id number] (Continued) Specimen: [id number] Collected: 03/19/14-1046 Received: 03/19/14 (Continued) Procedure Result Verified Site Urine Culture Final (continued) 03/24/14- 1524 2. ENTEROBACTER CLOACAE COMPLEX M.I.C. RX --------- ------ Cefazolin >=64 R Cefepime <=1 S Ceftriaxone <=1 S Ciprofloxacin <=0.25 S Gentamicin <=1 S Levofloxacin <=0.12 S Meropenem <=0.25 S Nitrofurantoin 64 I Tetracycline 4 S Pipercillin/Tazobactam <=4 S Trimethoprim/Sulfamethoxazole <=20 S Amoxicillin/Clavulanic Acid >=32 R Aztreonam <=1 S Contact the Microbiology Department for any additional antibiotic reporting. END OF REPORT * ML=Testing performed at Main Lab DEPARTMENT OF PATHOLOGY, [address] [place] [address] Surinder Hernandez M.D. Director [facility] # [id number] 31 Desirable <150 Borderline high 150-199 High 200-499 Very High >500 32 Desirable <200 Borderline high 200-239 High >239 33 Low <40 Desirable: 40-60 High: >60 34 Desirable <100 Near Optimal 100-129 Borderline high 130-159 High 160-189 Very High >189 35 HDL Interpretation: Undesirable: High Risk: Less than 40 mg/dL Desirable: Low Risk: Greater than 60 mg/dL 36 LDL Interpretation: Low Risk Optimal Level: LDL Less than 100 mg/dL Near or Above Optimal: LDL 100-129 mg/dL Borderline High Risk: LDL 130-159 mg/dL High Risk: LDL 160-189 mg/dL Very High Risk: LDL Greater than 189 mg/dL 37 FASTING 12 HOUR Please get this done the May Because ethnic data is not always readily available, this report includes an eGFR for both -Americans and non- Americans. The National Kidney Disease Education Program (NKDEP) does not endorse the use of the MDRD equation for patients that are not between the ages of 18 and 70, are , have extremes of body size, muscle mass, or nutritional status, or are non- or non-. According to the National Kidney Foundation, irrespective of diagnosis, the stage of the disease is based on the level of kidney function: Stage Description GFR(mL/min/1.73 m(2)) 1 Kidney damage with normal or decreased GFR 90 2 Kidney damage with mild decrease in GFR 60-89 3 Moderate decrease in GFR 30-59 4 Severe decrease in GFR 15-29 5 Kidney failure <15 (or dialysis) 39 HDL Interpretation: Undesirable: High Risk: Less than 40 mg/dL Desirable: Low Risk: Greater than 60 mg/dL 40 LDL Interpretation: Low Risk Optimal Level: LDL Less than 100 mg/dL Near or Above Optimal: LDL 100-129 mg/dL Borderline High Risk: LDL 130-159 mg/dL High Risk: LDL 160-189 mg/dL Very High Risk: LDL Greater than 189 mg/dL 41 RUN DATE: 05/27/12 [facility] LAB LIVE PAGE 1 RUN TIME: [address] [place], [place] [address] Specimen Inquiry Name: COURTNEY ACUÑA : [address]: Macy Elder Acct: [id number] Unit: [id number] AGE: 56 Location: [facility] Re05/25/12 SEX: F Status: REG REF SPEC: [id number] MIKEY: 05/25/[address] [facility] [address]: Macy Elder REQ: [id number] RECD: 05/25/12 STATUS: WALLY MCMAHAN DR: _ SOURCE: URINE SPDESC: ORDERED: Urine Culture QUERIES: Medent Number [id number] Urine Source: Random Procedure Result Verified Site Urine Culture Final 05/27/12- 1612 ML Organism 1 NORMAL RONI Western Count 1-10,000 (Few) CFU/ML END OF REPORT * ML=Testing performed at Main Lab DEPARTMENT OF PATHOLOGY, [facility] [employer] [place], [place] [address] Surinder Hernandez M.D. Director [facility] Permit #[id number] RUN DATE: 05/22/12 [facility] LAB LIVE PAGE 1 RUN TIME: [address] [facility] [address] [place], [place] [address] Specimen Inquiry Name: COURTNEY ACUÑA : [address]: Macy Elder Acct: [id number] Unit: [id number] AGE: 56 Location: [facility] Re05/18/12 SEX: F Status: REG REF SPEC : [id number] RECD: 05/21/12 STATUS: AMANDA SIMS NUM: [id number] MIKEY: 05/18/12- [facility] DR: Macy Elder ENTERED: 05/21/12 SP TYPE: SURGICAL P MARJ PUGH: ORDERED: LEVEL III FINAL DIAGNOSIS Sebaceous cyst lower midline back, excision: Squamous debris compatible with epidermal inclusion cyst contents. 1. Cyst - SEBACEOUS CYST FROM LOWER MIDLINE BACK CLINICAL HISTORY No history given GROSS DESCRIPTION The specimen is received in formalin labelled Courtney Acuña, Sebaceous Cyst from Lower Midline Back, and consists of multiple irregular justice-chou, soft tissue fragments and debris measuring 1.6 x 1.5 x 0.7 cm. in aggregate. Submitted entirely, one cassette. Signed (signature on file) Surinder Hernandez MD 1558 END OF REPORT * ML=Testing performed at Main Lab DEPARTMENT OF PATHOLOGY, [address] [place] [address] Surinder Hernandez M.D. Director [facility] Permit #[id number] CHOLESTEROL INTERPRETATION: Desirable: Less than 200 MG/DL Borderline-High Risk: 200-239 MG/DL High-Risk: 240 MG/DL and over 44 HDL INTERPRETATION: Undesirable: High Risk: Less than 40 MG/DL Desirable: Low Risk: Greater than 60 MG/DL 45 LDL INTERPRETATION: Low Risk Optimal Level: LDL Less than 100 MG/DL Near or Above Optimal: LDL 100-129 MG/DL Borderline High Risk: LDL 130-159 MG/DL High Risk: LDL 160-189 MG/DL Very High Risk: LDL Greater than 189 MG/DL 46 Anion gap measurement may be of limited value in the presence of any alkalosis, especially in a combined acid base disorder. . 47 A metabolite of Naproxen, O-desmethylnaproxen, has been shown to interfere with the Jendrassik-Fermín method for measuring total bilirubin. Samples from patients who have taken Naproxen have shown spurious elevation in total bilirubin levels. 48 Because ethnic data is not always readily available, this report includes an eGFR for both -Americans and non- Americans. The National Kidney Disease Education Program (NKDEP) does not endorse the use of the MDRD equation for patients that are not between the ages of 18 and 70, are , have extremes of body size, muscle mass, or nutritional status, or are non- or non-. According to the National Kidney Foundation, irrespective of diagnosis, the stage of the disease is based on the level of kidney function: Stage Description GFR(mL/min/1.73 m(2)) 1 Kidney damage with normal or decreased GFR 90 2 Kidney damage with mild decrease in GFR 60-89 3 Moderate decrease in GFR 30-59 4 Severe decrease in GFR 15-29 5 Kidney failure <15 (or dialysis) 49 Anion gap measurement may be of limited value in the presence of any alkalosis, especially in a combined acid base disorder. . 50 A metabolite of Naproxen, O-desmethylnaproxen, has been shown to interfere with the Jendrassik-Fermín method for measuring total bilirubin. Samples from patients who have taken Naproxen have shown spurious elevation in total bilirubin levels. 51 Because ethnic data is not always readily available, this report includes an eGFR for both -Americans and non- Americans. The National Kidney Disease Education Program (NKDEP) does not endorse the use of the MDRD equation for patients that are not between the ages of 18 and 70, are , have extremes of body size, muscle mass, or nutritional status, or are non- or non-. According to the National Kidney Foundation, irrespective of diagnosis, the stage of the disease is based on the level of kidney function: Stage Description GFR(mL/min/1.73 m(2)) 1 Kidney damage with normal or decreased GFR 90 2 Kidney damage with mild decrease in GFR 60-89 3 Moderate decrease in GFR 30-59 4 Severe decrease in GFR 15-29 5 Kidney failure <15 (or dialysis) 52 New Reference Range and Interpretation effective 05/17/2002 TnI (ng/ml) INTERPRETATION Less Than 0.06 ng/mL NOT SUPPORTIVE OF DIAGNOSIS OF [place] 0.06 - 0.50 ng/ml INDETERMINATE: SUGGEST SERIAL STUDIES IF CLINICALLY INDICATED. Greater than 0.5 ng/mL CONSISTENT WITH DIAGNOSIS OF [place] . 53 CHOLESTEROL INTERPRETATION: Desirable: Less than 200 MG/DL Borderline-High Risk: 200-239 MG/DL High-Risk: 240 MG/DL and over 54 HDL INTERPRETATION: Undesirable: High Risk: Less than 40 MG/DL Desirable: Low Risk: Greater than 60 MG/DL 55 LDL INTERPRETATION: Low Risk Optimal Level: LDL Less than 100 MG/DL Near or Above Optimal: LDL 100-129 MG/DL Borderline High Risk: LDL 130-159 MG/DL High Risk: LDL 160-189 MG/DL Very High Risk: LDL Greater than 189 MG/DL 56 Anion gap measurement may be of limited value in the presence of any alkalosis, especially in a combined acid base disorder. . 57 A metabolite of Naproxen, O-desmethylnaproxen, has been shown to interfere with the Jendrassik-Yulee method for measuring total bilirubin. Samples from patients who have taken Naproxen have shown spurious elevation in total bilirubin levels. 58 Because ethnic data is not always readily available, this report includes an eGFR for both -Americans and non- Americans. The National Kidney Disease Education Program (NKDEP) does not endorse the use of the MDRD equation for patients that are not between the ages of 18 and 70, are , have extremes of body size, muscle mass, or nutritional status, or are non- or non-. According to the National Kidney Foundation, irrespective of diagnosis, the stage of the disease is based on the level of kidney function: Stage Description GFR(mL/min/1.73 m(2)) 1 Kidney damage with normal or decreased GFR 90 2 Kidney damage with mild decrease in GFR 60-89 3 Moderate decrease in GFR 30-59 4 Severe decrease in GFR 15-29 5 Kidney failure <15 (or dialysis) 59 ---- RUN DATE: 04/11/11 [facility] NMI LIVE PAGE 1 RUN TIME: 1527 Specimen Inquiry RUN USER: INTERFACE -- Name: COURTNEY ACUÑA Status: REG REF Re04/08/11 Age/Sex: 55/F Unit#: [id number] Location: [facility] : 53 -- Specimen: [id number] SOUT Spec Date: 04/08/[address]: Macy patterson [facility] Spec Type: CYTOLOGY Received: 04/11/11-1142 Copies to: SOURCE ECTOCERVICAL/ENDOCERVICAL Thin Prep with Reflex HPV Test PATIENT INFORMATION ACTUAL COLLECTION DATE: 04/08/11 ? No POST MENOPAUSAL? Yes HYSTERECTOMY? No PREVIOUS ABNORMAL PAP SMEARS No LAST MENSTRUAL PERIOD: 02/28/11 ADEQUACY OF SPECIMEN Satisfactory for evaluation * Transformation zone component identified * DIAGNOSIS NEGATIVE FOR INTRAEPITHELIAL LESION OR MALIGNANCY * This Pap test was evaluated with the assistance of the ThinPrep Pap Test Imaging System. The Pap Smear is a screening test designed to aid in the detection of premalign ant and malignant conditions of the uterine cervix. It is not a diagnostic procedure a nd should not be used as the sole means of detecting cervical cancer. Both false- positiv e and false-negative reports do occur. Depending on your risk status, a Pap smear gage uld be obtained and evaluated every one to three years. Initial evaluation performed by Elodia BURGESS(ASCP) 04/11/11 Final Interpretation electronically signed by: SURINDER HERNANDEZ MD 04/11/11 15 24 -- -- DEPARTMENT OF PATHOLOGY, [address] [place] [address] [facility] Permit #[id number] Surinder Hernandez M.D. Director Sangeeta Mendenhall M.D. Tromper Dir goldman -- Procedures Date Code Description Status 05/09/2018 08422 EKG Tracing & Interpretation Completed 11/29/2017 99125 Inject Tendon Sheath Or Ligament Aponeurosis Eg Plantar Completed Fascia 07/25/2017 [id number] Mammogram Completed 03/08/2017 91302 Inject Tendon Sheath Or Ligament Aponeurosis Eg Plantar Completed Fascia 07/20/2016 69705 Inject Tendon Sheath Or Ligament Aponeurosis Eg Plantar Completed Fascia 06/22/2016 [id number] Colonoscopy Completed 06/10/2016 [id number] Mammogram Completed 02/25/2016 14414 EKG Tracing & Interpretation Completed 06/05/2015 [id number] Mammogram Completed 02/18/2015 17281 Treadmill Interp/Report Only Completed 02/18/2015 99043 Stress Test Supervsn W/Out I/R Completed 02/18/2015 37979 Stress Test Completed 02/18/2015 89729 Myocardial Perfusion Imaging Tomographic (Spect) Completed Multiple Studies 12/18/2014 79946 EKG Tracing & Interpretation Completed 06/25/2014 91298 EKG Tracing & Interpretation Completed 05/28/2014 12728 Inject Tendon Sheath Or Ligament Aponeurosis Eg Plantar Completed Fascia 05/09/2014 [id number] Mammogram Completed 12/19/2013 72490 EKG Tracing & Interpretation Completed 08/01/2013 73358 open tx of metacarpal fx,single inclds internal Completed fixation when per 08/01/2013 68071 open tx of metacarpal fx,single inclds internal Completed fixation when per 08/01/2013 09116 Trigger Finger Release Incision / Tendon Sheath Completed Incision 08/01/2013 35998 Trigger Finger Release Incision / Tendon Sheath Completed Incision 05/16/2013 75273 Holter Monitoring 24 HR New Completed 05/14/2013 90609 Stress Test Completed 05/14/2013 91368 Myocardial Perfusion Imaging Tomographic (Spect) Completed Multiple Studies 05/08/2013 71834 EEG Recording Awake & Drowsy Completed 05/08/2013 [id number] Mammogram Completed 05/02/2013 07933 EKG Tracing & Interpretation Completed 04/19/2013 36559 EKG Tracing & Interpretation Completed 01/23/2013 39882 Inject Tendon Sheath Or Ligament Aponeurosis Eg Plantar Completed Fascia 01/09/2013 02920 Inject Tendon Sheath Or Ligament Aponeurosis Eg Plantar Completed Fascia 01/09/201348185 Inject Tendon Sheath Or Ligament Aponeurosis Eg Plantar Completed Fascia 01/09/201372520 Inject Tendon Sheath Or Ligament Aponeurosis Eg Plantar Completed Fascia 05/18/2012 90738 Excise Benign lesion 1.1-2CM Trunk/Arm/Leg Completed 05/18/2012 47057 excision, soft tissue of back, or flank Completed 04/27/2012 [id number] Mammogram Completed 11/08/2011 97270 Holter Monitor Review (24 hr)dr review & interp only Completed 11/02/2011 84542 EKG Tracing & Interpretation Completed 04/15/2011 [id number] Mammogram Completed 01/14/2010 05516703 Mammogram Completed 01/06/2010 42008 Biopsy Cervix, Single Or Multiple, Or Local Excision Of Completed Lesion 10/27/2008 82594 Holter Monitor Review (24 hr)dr review & interp only Completed 12/18/2007 79427 EKG Tracing & Interpretation Completed 12/18/2007 76316 EKG Tracing & Interpretation Completed 12/05/2006 42649 EKG Tracing & Interpretation Completed Encounters Type Date Location Provider Dx Diagnosis Office Visit 07/10/2018 [facility] Isabel Granados MD L29.2 Pruritus vulvae 4:30p Medicine - [place] Office Visit 05/09/2018 [facility] Yoel Delgado I49.3 Ventricular premature 4:00p Of Jaswinder Degroot DO FACC depolarization Office Visit 09/04/2017 [facility] Oliverio Solomon NP M25.511 Pain in right 4:00p Medicine - shoulder [place] R53.1 Weakness Office Visit 06/26/2017 9:20a [facility] Macy Enriquez, Z00.01 Encounter for Medicine - N.P. general adult [place] medical exam w abnormal findings Z12.31 Encntr screen mammogram for malignant neoplasm of breast E78.00 Pure hypercholesterolemia, unspecified I47.2 Ventricular tachycardia Z85.51 Personal history of malignant neoplasm of bladder K21.9 Gastro-esophageal reflux disease without esophagitis F41.1 Generalized anxiety disorder N77.1 Vaginitis, vulvitis and vulvovaginitis in dis classd elswhr Z11.51 Encounter for screening for human papillomavirus (HPV) Office Visit 07/20/2016 2:40p Orthopedic Trisha Munoz, M65.332 Trigger finger, Services Of RPA-C left middle C.M.A. finger Office Visit 05/27/2016 1:40p [facility] Macy Enriquez, Z00.00 Encntr for Medicine - N.P. 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 [facility] medical exam w/o abnormal findings Z12.39 Encounter for oth screening for malignant neoplasm of breast E78.2 Mixed hyperlipidemia C67.8 Malignant neoplasm of overlapping sites of bladder I49.3 Ventricular premature depolarization Office Visit 03/12/2015 2:40p [facility] Brent Phillips, 785.1 Palpitations Of Swimming Pool Installer And Servicer AT [facility], FSCAI 427.1 Paroxysmal Ventricular Tachycardia Office Visit 01/29/2015 2:40p [facility] Brent Phillips, 785.1 Palpitations Of Swimming Pool Installer And Servicer AT [facility], FSCAI 427.69 Premature Beats Other Office Visit 12/18/2014 2:40p [facility] Brent Phillips, 427.69 Premature Beats Of Swimming Pool Installer And Servicer AT [facility], Other FSCAI 785.1 Palpitations Office Visit 06/25/2014 9:20a [facility] Macy Enriquez, 427.69 Premature Beats Medicine - N.P. [facility] 300.00 Anxiety State Unspec Office Visit 05/28/2014 Orthopedic Ayesha 727.03 Trigger Finger 8:30a Services Of Sharri Lynn Acquired C.M.A. Office Visit 05/16/2014 Orthopedic Misha Myers, 726.72 Tendinitis 1:30p Services Of Sharri Santanais C.M.A. Office Visit 05/02/2014 [facility] Macy Enriquez, V70.0 Examination 3:20p Medicine - N.P. [facility] Routine AT Health Care Facility V72.31 Routine Teacher Specialist Examination V76.10 Screening For Malignant Neoplasm Breast 272.4 Hyperlipidemia Other Unspec 188.8 Malignant Neoplasm Bladder Other Spec Sites Office Visit 04/11/2014 1:00p Orthopedic Misha 726.72 Tendinitis Services Of Sharri Myers Tibialis Usha.MMichaelAMichael 726.71 Bursitis Or Tendinitis Achilles Office Visit 03/19/2014 10:40a [facility] Macy Enriquez, 599.0 UTI Urinary Medicine - N.P. Tract Infection [place] Site Not Spec 729.5 Pain In Limb Office Visit 12/19/2013 3:00p [facility] Brent Phillips, 427.69 Premature Beats Of Swimming Pool Installer And Servicer AT [place] [facility], Other FSCAI 272.4 Hyperlipidemia Other Unspec Office Visit 09/25/2013 1:00p [place] [facility] SMichael 780.4 Dizziness & Services Of Sharri Tran 794.02 Electroencephalogram Abnormal Brain & Central Nervous Sys Office Visit 05/30/2013 9:30a [facility] Brent Phillips, 427.69 Premature Beats Of [facility] Sharri, [facility], Other FSCAI 780.4 Dizziness & Giddiness Office Visit 05/22/2013 Orthopedic Ayesha 727.03 Trigger Finger 11:15a Services Of Sharri Lynn Acquired C.M.A. Office Visit 05/02/2013 [place] Brent Phillips M.D., 780.4 Dizziness & 2:15p Cardiology Of [facility], FSCAI Giddiness [facility] 427.69 Premature Beats Other Office Visit 04/19/2013 3:00p [facility] Macy Enriquez, V70.0 Examination Medicine - N.P. [facility] Routine AT Health Care Facility V72.31 Routine Teacher Specialist Examination V76.10 Screening For Malignant Neoplasm Breast 272.4 Hyperlipidemia Other Unspec 188.8 Malignant Neoplasm Bladder Other Spec Sites 780.4 Dizziness & Giddiness Office Visit 01/23/2013 Orthopedic Ayesha 727.03 Trigger Finger 11:00a Services Of Sharri Lynn Acquired C.M.A. Office Visit 01/09/2013 Orthopedic Ayesha 727.03 Trigger Finger 8:30a Services Of Shrari Lynn C.M.A. Office Visit 05/25/2012 [facility] Macy Enriquez, N.P. 599.0 UTI Urinary 2:20p Medicine - Tract Infection [place] Site Not Spec V58.32 Encounter For Removal Of Sutures Office Visit 05/16/2012 10:00a [facility] Macy Enriquez, 706.2 Sebaceous Cyst Medicine - N.P. [place] Office Visit 04/13/2012 3:00p [facility] Macy Stroudn, V70.0 Examination Medicine - N.P. General Medical [place] Routine AT [facility] V72.31 Routine Teacher Specialist Examination V76.10 Screening For Malignant Neoplasm Breast 272.4 Hyperlipidemia Other Unspec 188.8 Malignant Neoplasm Bladder Other Spec Sites 727.03 Trigger Finger Acquired Office Visit 11/09/2011 10:40a [facility] Laura Gray, 785.1 Palpitations Medicine - M.D., FACP [place] Office Visit 11/02/2011 10:40a [facility] Laura Gray, 785.1 Palpitations Medicine - M.D., FACP [place] Office Visit 06/07/2011 4:20p DO Not Use Macy Zoe, 681.02 Onychia & Swimming Pool Installer And Servicer-[place] N.P. Paronychia Finger Office Visit 04/08/2011 3:00p DO Not Use Macy Varn, V70.0 Examination Swimming Pool Installer And Servicer-[place] N.P. General Medical Routine AT [facility] V72.31 Routine Teacher Specialist Examination 272.4 Hyperlipidemia Other Unspec 188.8 Malignant Neoplasm Bladder Other Spec Sites Office Visit 02/16/2011 DO Not Use Macy Varn, 719.41 Pain Joint 2:00p [employer]imming [employer]icer-[place] N.P. Shoulder Region Office Visit 12/25/2009 DO Not Use Macy Varn, V72.31 Routine Teacher Specialist 3:00p [employer]imming [employer] N.P. Examination 622.7 Mucous Polyp Cervix Office 10/31/2008 DO Not Use Macy 272.0 Hypercholesterolemia Visit 2:30p [employer]-[place] Varn, N.P. Pure Office 10/17/2008 DO Not Use Lauragodfrey Gray, 785.1 Palpitations Visit 2:15p [employer] M.D., FACP 786.05 Shortness Of Breath 300.00 Anxiety State Unspec Office Visit 04/02/2008 DO Not Use Macy 466.0 Bronchitis Acute 9:00a [employer] Varn, N.P. Office Visit 12/18/2007 DO Not Use Macy V72.31 Routine Teacher Specialist 2:30p [facility] Varn, N.P. Examination Office Visit 01/12/2007 DO Not Use Macy 272.4 Hyperlipidemia 2:30p [facility] Varn, N.P. Other Unspec 794.8 Liver Study Abnormal Office Visit 12/05/2006 DO Not Use Macy Maximusn, V72.31 Routine Teacher Specialist 2:45p [facility] N.P. Examination 272.0 Hypercholesterolemia Pure V06.1 Mfzoavzqjj-Pcoqqdn-Owaeatvd Combined (DTaP) Plan of Treatment Future Appointment(s):08/02/2019 2:20 pm - Macy Enriquez N.P. at [facility] Medicine - Mqonufgrk59/20/2018 2:00 pm - Ninfa Ernandez M.D. at [facility]07/31/2018 - Macy Enriquez, N.P.Z00.00 Encounter for general adult medical examination without abnoComments:For your routine health maintenance: I would encourage you to start a regular exercise program. Yourcolonoscopy is up to date. You had this in 2015. You will need this repeated in 2020. Your Tetanus immunization is up to date. You received this in 2016. It is good for 10 years unless you have a majorinjury, then it is good for 5 years. There is a new shingles vaccine available, Shingrix. This is aseries of 2 injections given 2 - 6 months apart. This is available at the pharmacy and I urge you toget this.Z12.31 Encounter for screening mammogram for malignant neoplasm ofComments:I have ordered your routine screening mammogram. The imaging department will give you your results at the time of your visit. I encourage you to do self exams. If you should notice any masses or thickening, please give the office a call.E78.00 Pure hypercholesterolemia, unspecifiedComments:Your recent labs to check your cholesterol were okay. I advise you to follow a low cholesterol diet.I49.3 Ventricular premature depolarizationComments:For your early heart beats continue to take the Metoprolol.K21.9 Gastro-esophageal reflux disease without esophagitisComments: For your esophageal reflux: Continue with your current management. If at any point you feel your symptoms are not well controlled, please contact the office.Z85.51 Personal history of malignant neoplasm of bladderComments:With you history of bladder cancer please continue to follow up with your specialist.F41.9 Anxiety disorder, unspecifiedComments:For your anxiety: Continue your current management. If you should at any time feel your symptoms are not well controlled, please give the office a call.
--- OUTSIDE RECORDS SUMMARY | 2018-08-11 14:05 | XMS REPORT | Continuity of Care Document ---
:1955 External Reference #:[id number] Author Name Breonna Wendy Care Team Providers Name Role Phone Zohra Klein MD Primary Care Physician Unavailable Payers Type Date Identification Numbers Payment Provider Subscriber Policy Number: [id number] [employer]ets Courtney Acuña PayID: [id number] [address] [address] [place] [address] Advance Directives Type Date Description Status Comment Other Directive 06/27/2017 Health Care Proxy Current and Verified Problems Date Description Provider Status Onset: 04/08/2011 Hyperlipidemia Macy Enriquez, N.P. Active Onset: 03/12/2015 Paroxysmal ventricular Brent Phillips M.D., [facility], Active tachycardia [facility] Onset: 04/08/2011 Malignant tumor of urinary Macy Enriquez, N.P. Active bladder Onset: 12/19/2013 Premature beats Brent Phillips M.D., [facility], Active [facility] Onset: 12/18/2014 Palpitations Brent Phillips M.D., [facility], Active [facility] Family History Date Family Member(s) Problem(s) Comments General Heart Disease : (age 58 Father due to [place] Smoker Years) Mother Heart Valve Disease Aortic Valve Replacement, Hyperlipidemia, ? 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 - weekly 07/14 Metoprolol 12/18 Hx Tablets 25mg 30tab 1 by mouth 427.69 Brent Succinate ER ER 24HR s every day Lydia Phillips M.D., 01/29 [facility] Escitalopram 06/25 Hx Tablets 10mg 30tab 1 by mouth F41.9 s every day Varn, N.P. - 09/28 Ciprofloxacin HCL 03/19 Hx Tablets 250mg 14tab one by 599.0 s mouth Varn, N.P. - twice a 03/26 day for days [place] 07/17 Hx Tablets 5-325mg 40tab 1-2 po s q4-6h prn Sp-Nawaf - post op Sharri oh 08/28 pain Cipro 05/25 Hx Tablets 250mg 14tab one by 599.0 s nouth Varn, N.P. - twice 06/01 daily for 7 days Cephalexin 05/18 Hx Tablets 500mg 21tab one three 706.2 s times Varn, N.P. - daily for 05/25 Cephalexin /25 Hx Tablets 500mg 21tab one three 681.02 s times Marina, - daily for M.D., FACP 06/14 Tylenol PM 04/08 Hx Tablets 2 tablets at bedtime Lydia Gray M.D., FACP 04/13 Herbal Menapausal 04/08 Hx 1 qd Lydia Gray M.D., FACP 11/01 Crestor 02/07 Hx Tablets 5mg 30tab Take 1 Zohra s Tablet By Cotton, - Mouth Once M.D. 04/16 Medications Administered in Office Medication Date Status Form Strength Qnty SIG Indications Ordering Provider Depomedrol Administered Injection Ninfa 40MG 018 Gina Ernandez. Depomedrol Administered Injection Trisha 40MG 017 Bitting, RPA-C Depomedrol Administered Injection Trisha 40MG 016 Bitting, RPA-C Technetium TC Administered Injection Zackery Mullen 99M 015 Addi Burrell M.D., FACC, Per Unit Dose FASNC Up To 40 Millicuries Technetium TC Administered Injection Stephen FMichael 99M 015 Addi Garibay MMichaelDMichael Per Unit Dose Up To 40 Millicuries Celestone 3 mg Administered Injection Ayesha and 3mg 014 Yohan kinney M.D. Technetium TC Administered Injection Brent 99M 013 Addi Phillips M.D., FACC, Per Unit Dose [facility] Up To 40 Millicuries Celestone 3 mg Administered Injection Ayesha and 3mg 013 Yohan kinney M.D. Celestone 3 mg Administered Injection Ayesha and 3mg 013 Yohan kinnye M.D. Celestone 3 mg Administered Injection Ayesha and 3mg 013 Yohan kinney M.D. Celestone 3 mg Administered Injection Ayesha and 3mg 013 Yohan kinney M.D. Celestone 3 mg Administered Injection Ayesha and 3mg 013 Yohan kinney M.D. Celestone 3 mg Administered Injection Ayesha and 3mg 013 Yohan kinney M.D. Immunizations CPT Code Status Date Vaccine Lot # [id number] Given 05/05/2018 Influenza Virus Vaccine, Quadrivalent, Split, Preservative Free 78712 Given 04/10/2017 Pneumonia Vaccine 08615 Given 04/10/2017 Influenza Virus Vaccine, Quadrivalent, Split, Preservative Free 02255 Given 05/05/2016 Tdap - Tetanus/Diptheria/Acellular Pertussis Q2035 Given 04/20/2016 Afluria Vaccine 81798 Given 05/11/2015 Zoster (Zostavax) Q2035 Given 04/27/2015 Afluria Vaccine 23754 Given 04/27/2015 Pneumococcal Conjugate Vaccine 13 Valent For Intramuscular Use 35122 Given 04/22/2014 Influenza Virus 3Yrs & Over 65488 Given 04/22/2014 Influenza Virus 3Yrs & Over Q2035 Given 04/17/2013 Afluria Vaccine Q2038 Given 04/19/2012 Fluzone Vaccine 87595 Given 04/28/2011 Influenza Virus 3Yrs & Over 79924 Given 05/28/2007 Influenza Virus 3Yrs & Over 03540 Given 12/05/2006 Tdap - Tetanus/Diptheria/Acellular Pertussis Vital Signs Date Vital Result Comment 08/02/2018 1:48pm Height 56 inches 4'8" Weight 154.00 lb BP Systolic 117 mmHg BP Diastolic 82 mmHg Respiratory Rate 16 /min Pain Level 6 BMI (Body Mass Index) 34.5 kg/m2 07/31/2018 10:17am Height 56 inches 4'8" Weight [...] inches 4'8.50" Weight 137.00 lb Heart Rate 62762 /min BP Systolic Sitting 112 mmHg LA [...] H/L Range Note Comp Metabolic Panel 07/21/2018 [facility] Sodium 140 mmol/L N 135-[address] [place] [address] [phone] Potassium 4.4 mmol/L N 3.5-5.0 Chloride 103 [...] Egfr 94.4 >60 1 Laboratory test 07/21/2018 [facility] TSH (Thyroid 2.46 mcIU/mL N 0.34-5.[address] Stim Horm) [place] [address] [phone] Vitamin D Total 25(Oh) 28.4 ng/mL N 20-50 Lipid Profile 07/21/2018 [facility] Triglycerides 207 mg/dL 2 (Trig/Chol/HDL) [address] [place] [address] [phone] Cholesterol 215 mg/dL 3 HDL Cholesterol 49.4 mg/dL 4 LDL Cholesterol 124 mg/dL 5 Urine Culture And 04/24/2018 [facility] Urine SEE RESULT [address] [place] [address] [phone] Laboratory test 06/26/2017 [facility] HPV Rna Negative Negative 7, [address] Ww/[place] [address] Genotype [phone] Cytology SEE RESULT BELOW 9 Comp Metabolic Panel 06/09/2017 [facility] Sodium 135 mmol/L N 133-[address] [place] [address] [phone] Potassium 4.2 mmol/L N 3.5-5.0 Chloride 101 [...] 100.7 N >60 10 Lipid Profile 06/09/2017 [facility] Triglycerides 190 mg/dL N 11 (Trig/Chol/HDL) [address] [place] [address] [phone] Cholesterol 209 mg/dL N 12 HDL Cholesterol 50.7 mg/dL N 13 LDL Cholesterol 120 mg/dL N 14 Laboratory test 07/05/2016 [facility] Vitamin D Total 30.7 ng/ mL N 30-[address] 25(Oh) [place] [address] [phone] Laboratory test 06/22/2016 [facility] Surgical Pathology SEE RESULT [address] [place] [address] [phone] Lipid Profile 05/11/2016 [facility] Triglycerides 188 mg/dL N 16 (Trig/Chol/HDL) [address] [place] [address] [phone] Cholesterol 203 mg/dL N 17 HDL Cholesterol 50.5 mg/dL N 18 LDL Cholesterol 115 mg/dL N 19 Comp Metabolic Panel 05/11/2016 [facility] Sodium 137 mmol/L N 133-145 [address] [place] [address] [phone] Potassium 4.3 mmol/L N 3.5-5.0 Chloride 102 [...] 113.1 N >60 20 Laboratory test 05/11/2016 [facility] TSH (Thyroid 1.55 mcIU/mL N 0.34-5.[address] Stim Horm) [place] [address] [phone] Vitamin D Total 25(Oh) 10.9 ng/mL Low 30-50 Comp Metabolic Panel 05/06/2015 [facility] Sodium 140 mmol/L N 133-145 [address] [place] [address] [phone] Potassium 4.0 mmol/L N 3.5-5.0 Chloride 105 [...] 126.3 N >60 21 Lipid Profile 05/06/2015 [facility] Triglycerides 174 mg/dL N 22 (Trig/Chol/HDL) [address] [place] [address] [phone] Cholesterol 195 mg/dL N 23 HDL Cholesterol [...] mg/dL N 1.9-2.7 finding Laboratory test 05/02/2014 [facility] Cytology RUN DATE: [address] 05/05/ [place] [address] NOTE> [phone] HPV High Risk 05/02/2014 [facility] Human Papillomavirus See Comment N [address] [place] [address] [phone] HPV High Risk Type 16, PCR Negative N Negative HPV High Risk Type 18, PCR Negative N Negative HPV Other Risk types Negative N Negative 29 Urinalysis Profile 03/19/2014 [facility] Urine Color Yellow N [address] [place] [address] [phone] Urine Appearance Cloudy N Urine Specific [place] 1.016 N 1.010-1.030 Urine pH 7.0 N [...] Present Abnormal Absent Urine Culture And 03/19/2014 [facility] Urine Culture (SEE NOTE ) 30 Sensitivities [address] [place] [address] [phone] Ua Routine 03/19/2014 [facility] Ua Specific 1.005 [place] Ua PH 7.5 Ua Color yellow Ua Appera clear Ua WBC mod Ua Protein trace Ua Glucose neg Ua Ketones trace Ua Bilirubin trace Ua Urobilinogen normal Ua Nitrite neg Ua Occult Blood trace Lipid Profile 03/19/2014 [facility] Triglycerides 219 mg/dL N 31 (Trig/Chol/HDL) [address] [place] [address] [phone] Cholesterol 201 mg/dL N 32 HDL Cholesterol 56.2 mg/dL N 33 LDL Cholesterol 101 mg/dL N 34 Liver Function 03/19/2014 [facility] Total Protein 6.8 g/dL N 6.4-8.9 Panel [address] [place] [address] [phone] Albumin 4.3 g/dL N 3.2-5.2 Globulin 2.5 g/dL N 2-4 Albumin/Globulin Ratio 1.7 N 1-3 Total Bilirubin 0.60 mg/dL N 0.2-1.0 Direct Bilirubin 0.10 mg/dL N 0.03-0.18 Indirect Bilirubin 0.5 mg/dL N 0.3-1.0 Alkaline Phosphatase 77 U/L N 34-104 Alt 16 U/L N 7-52 Ast 14 U/L N 13-39 Lipid Profile 06/05/2013 [facility] Triglycerides 105 mg/dL 40-200 (Trig/Chol/HDL) [address] [place] [address] [phone] Cholesterol 192 mg/dL Less than 200 HDL Cholesterol 64 mg/dL High 40-60 35 Cholesterol/HDL Ratio 3.0 Average 1-4.44 LDL Cholesterol 107.0 High Less Than 100 36 Liver Function 06/05/2013 [facility] Total Protein 6.4 g/dL 6.2-8.1 Panel [address] [place] [address] [phone] Albumin 3.9 g/dL 3.6-5.4 Globulin 2.5 g/dL 2-4 Albumin/Globulin Ratio 1.6 1-3 Total Bilirubin 0.5 mg/dL 0.4-1.5 Direct Bilirubin 0.1 mg/dL 0.1-0.5 Indirect Bilirubin 0.4 mg/dL 0.3-1.0 Alkaline Phosphatase 70 U/L 30-110 Alt 20 U/L 14-54 Ast 21 U/L 12-42 Laboratory 06/05/2013 [facility] Hepatitis C Nonreactive Nonreactive 37 test finding 101 [facility] [place] [address] [phone] Comp Metabolic 04/10/2013 [facility] Sodium 139 mmol/L 133- 145 Panel [address] [place] [address] [phone] Potassium 4.3 mmol/L 3.5-5.0 Chloride 105 mmol/L [...] >60 Egfr 132.1 >60 38 Laboratory 04/10/2013 [facility] TSH (Thyroid 0.89 0.34-5.60 test finding [address] Stimulating miu/[place] [address] Horm) [phone] Lipid Profile 04/10/2013 [facility] Triglycerides 201 mg/dL High 40-200 (Trig/Chol/HDL [address] ) [place] [address] [phone] Cholesterol 235 mg/dL High Less than 200 HDL Cholesterol 61 mg/dL High 40-60 39 Cholesterol/HDL Ratio 3.9 Average 1-4.44 LDL Cholesterol 133.8 High Less Than 100 40 Ua W/Microscopic 05/25/2012 [facility] Ua Appera Cloudy Ua Bacteria NEG Ua Bilirubin Negative Ua Blood Large Ua Casts Hyaline NEG Ua Casts Other NEG Ua Color Brown/Red Ua Crystals NEG Ua Epithelial Cells NEG Ua Glucose Negative Ua Ketones Negative Ua Leuko Negative Ua Nitrite Negative Ua PH 5 Ua Protein 30 Ua RBC MOD Ua Specific [place] 1.025 Ua Urobilinogen Negative Ua WBC FEW Ua Yeast NEG Urine Culture & 05/25/2012 [facility] Urine Culture (SEE NOTE) [address] [place] [address] [phone] Laboratory test 05/18/2012 [facility] Surgical Pathology RUN DATE: [address] [place] [address] <SEE NOTE> [phone] Laboratory test 04/18/2012 [facility] TSH 0.83 0.34- finding [address] MIU/ML 5.60 [place] [address] [phone] Lipid Profile 04/18/2012 [facility] Triglyceride 82 mg/dL 40- 20 (Trig/Chol/HDL) [address] 0 [place] [address] [phone] Cholesterol 197 mg/dL Less Than 200 43 High Density Lipoprotein 57 mg/dL 40-60 44 Cholesterol/HDL Ratio 3.46 AVERAGE 1-4.44 Low Density Lipoprotein 124 mg/dL High Less Than 100 45 Comp Metabolic Panel 04/18/2012 [facility] Sodium 140 mmol/L 135-[address] [place], [place] [phone] Potassium 4.3 mmol/L 3.5-5.0 Chloride 110 mmol/L [...] 132.5 > 60 48 Ua Routine 04/13/2012 [facility] Ua Specific [place] 1.010 Ua PH 5 Ua Color dark yellow Ua Appera clear Ua WBC neg Ua Protein neg Ua Glucose neg Ua Ketones neg Ua Bilirubin neg Ua Urobilinogen neg Ua Nitrite neg Ua Occult Blood Non hem trace CBC With Manual 11/02/2011 [facility] White Blood 6.9 CUMM 4.8-10.[address] [place] [address] [phone] Red Cell Count 4.40 CUMM 4.2-5.4 Hemoglobin [...] RBC Morphology NORMAL Comp Metabolic Panel 11/02/2011 [facility] Sodium 138 mmol/L 135-[address] [place] [address] [phone] Potassium 3.9 mmol/L 3.5-5.0 Chloride 99 mmol/L [...] 164.1 > 60 51 Laboratory test 11/02/2011 [facility] TSH 1.04 MIU/ML 0.34- 5.60 finding [address] [place] [address] [phone] Troponin-I 0 NG/ML 0-0.06 52 Lipid Profile 04/13/2011 [facility] Triglyceride 80 mg/dL 40- 200 (Trig/Chol/HDL) [address] [place] [address] [phone] Cholesterol 201 mg/dL High Less Than 200 53 High Density Lipoprotein 62 mg/dL High 40-60 54 Cholesterol/HDL Ratio 3.24 AVERAGE 1-4.44 Low Density Lipoprotein 123 mg/dL High Less Than 100 55 Comp Metabolic Panel 04/13/2011 [facility] Sodium 139 mmol/L 135-145 [address] [place] [address] [phone] Potassium 4.2 mmol/L 3.5-5.0 Chloride 107 mmol/L [...] 133.0 > 60 58 Laboratory test 04/13/2011 [facility] TSH 1.71 MIU/ML 0.34- 5.[address] [place] [address] [phone] Laboratory test 04/08/2011 [facility] Cytology [address] ---- <[place] [address] NOTE> [phone] 1 Because ethnic data is not always [...] 6 SEE RESULT BELOW Name: COURTNEY ACUÑA Ken : [address]: Macy Enriquez NP Acct: [id number] Unit: [id number] AGE: 62 Location: [facility] Re04/24/18 SEX: F Status: REG REF SPEC: [id number] MIKEY: 04/24/[address]: Macy Enriquez NP REQ: [id number] RECD: 04/24/18 STATUS: RES _ SOURCE: URINE SPDESC: ORDERED: Urine Culture QUERIES: Urine Source: Clean Catch Procedure Result Reported Site Urine Culture Preliminary 04/27/18- 0815 ML Organism 1 STAPHYLOCOCCUS AUREUS [place] Count 10-25,000 (Moderate) CFU/ML Organism 2 NORMAL RONI [place] Count 50-75,000 (Many) CFU/ML * ML - Main Lab . END OF REPORT DEPARTMENT OF PATHOLOGY, [address] [place] [address] Surinder Hernandez M.D. Director [facility] # [id number] The high-risk HPV types detected by the assay include: 16, 18, 31, 33, 35, 39, 45, 51, 52, 56, 58, 59, 66, and 68. 9 SEE RESULT BELOW Name: COURTNEY ACUÑA : [address]: Macy Enriquez NP Acct: [id number] Unit: [id number] AGE: 61 Location: [facility] Re06/26/17 SEX: F Status: REG REF SPEC: [id number] MIKEY: 06/26/17-[address] [facility] [address]: Macy Enriquez SALES ACCOUNT REPRESENTATIVE REQ: [id number] RECD: 06/26/17-1055 STATUS: SOUT _ ORDERED: TP IMAGE ANAL, HPV/Thin Prep, HPV 16/18 GENE COMMENTS: [id number] FINAL DIAGNOSIS Negative for Intraepithelial lesion or [...] Signed (signature on file) STERLING Alejo(ASCP) 06/27 8692 This Pap test was evaluated with the assistance of the FunGoPlayPrep Test Imaging System. Due to cytologic findings at the gambling broker microscope, comprehensive manual rescreening by a Cold Type Composing Machine Operator may be required. The Pap Smear is [...] years. END OF REPORT RUN DATE: 06/27/17 [facility] LAB LIVE PAGE 1 Patient: COURTNEY ACUÑA Ken [id number] (Continued) * ML=Testing performed at Main Lab DEPARTMENT OF PATHOLOGY, [address] [place] [address] Surinder Hernandez M.D. Director [facility] # [id number] 10 Because ethnic data is not always [...] High: >189 15 SEE RESULT BELOW Name: CORUTNEY ACUÑA : [address]: Dakota Gomes MD Acct: [id number] Unit: [id number] AGE: 60 Location: ENDO Re06/22/16 SEX: F Status: DEP REF SPEC: [id number] MIKEY: 06/22/16- SUBM DR: Dakota Gomes MD REQ: [id number] RECD: 06/22/161543 STATUS: AMANDA MCMAHAN DR: Macy Enriquez SALES ACCOUNT REPRESENTATIVE _ ORDERED: LEVEL IV FINAL DIAGNOSIS Colon, [...] performed at Main Lab DEPARTMENT OF PATHOLOGY, [address] [place] [address] Surinder Hernandez M.D. Director [facility] # [id number] 16 Desirable <150 Borderline high 150-199 High [...] <15 (or dialysis) 27 RUN DATE: 05/05/14 [facility] LAB LIVE PAGE 1 RUN TIME: [address] [place] [address] Specimen Inquiry Name: COURTNEY ACUÑA : [address]: Macy Enriquez NP Acct: [id number] Unit: [id number] AGE: 58 Location: [facility] Re05/02/14 SEX: F Status: REG REF SPEC: [id number] MIKEY: 05/02/14-[address] [facility] [address]: Macy Enriquez NP REQ: [id number] RECD: 05/02/143497 STATUS: SOUT _ ORDERED: IMAGE ANALYSIS, HPV/Thin Prep FINAL DIAGNOSIS Negative for Intraepithelial lesion or Malignancy COMMENTS: Specimen sent to [facility] in [place], [place] on 05/05/14 by [id number] at 1030. Results will be reported separately. [...] Abnormal Pap Smears?:N Signed (signature on file) KatelynSTERLING Carrasco (ASCP) 05/05/14 1041 This Pap test was evaluated with the assistance of the FunGoPlayPrep Test Imaging System. Due to cytologic findings at the gambling broker microscope, comprehensive manual rescreening by a Cold Type Composing Machine Operator may be required. The Pap Smear is [...] performed at Main Lab DEPARTMENT OF PATHOLOGY, [address] [place] [address] Surinder Hernandez M.D. Director [facility] # [id number] RESULT: Ectocervical/Endocervical 29 The following Other High Risk HPV types were not detected: 31, 33, 35, 39, 45, 51, 52, 56, 58, 59, 66, and 68 Test Performed by: [address] [address] Top Cager: Juan Ramon Fisher III, M.D. 30 RUN DATE: 03/24/14 [facility] LAB LIVE PAGE 1 RUN TIME: [address] [place] [address] Specimen Inquiry Name: COURTNEY ACUÑA : [address]: Macy Enriquez NP Acct: [id number] Unit: [id number] AGE: 58 Location: [facility] Re03/19/14 SEX: F Status: REG REF SPEC: [id number] MIKEY: 03/19/14-[address]: Macy Enriquez NP REQ: [id number] RECD: 03/19/14 STATUS: COMP _ SOURCE: URINE SPDESC: ORDERED: Urine Culture QUERIES: Medent Number [id number] Procedure Result Verified Site Urine Culture Final 03/24/14- 1524 ML Organism 1 KLEBSIELLA OXYTOCA [place] Count 10-25,000 (Moderate) CFU/ML Organism 2 ENTEROBACTER CLOACAE COMPLEX [place] Count 10-25,000 (Moderate) CFU/ML 1. KLEBSIELLA OXYTOCA [...] performed at Main Lab DEPARTMENT OF PATHOLOGY, [facility] [employer] [place] [address] Surinder Hernandez M.D. Director [facility] # [id number] RUN DATE: 03/24/14 [facility] LAB LIVE PAGE 2 RUN TIME: 786 [facility] [employer] [place], [place] [address] Specimen Inquiry Patient: COURTNEY ACUÑA [id number] (Continued) Specimen: [id number] Collected: 03/19/14-1046 Received: 03/19/14-1617 (Continued) Procedure Result Verified Site Urine Culture [...] performed at Main Lab DEPARTMENT OF PATHOLOGY, [address] [place] [address] Surinder Hernandez M.D. Director [facility] # [id number] Desirable <150 Borderline high 150-199 High [...] 12 HOUR Please get this done the week may Because ethnic data is not always readily [...] than 189 mg/dL 41 RUN DATE: 05/27/12 [facility] LAB LIVE PAGE 1 RUN TIME: [address], [place], [place] [address] Specimen Inquiry Name: COURTNEY ACUÑA : [address]: Macy Elder Acct: [id number] Unit: [id number] AGE: 56 Location: [facility] Re05/25/12 SEX: F Status: REG REF SPEC: [id number] MIKEY: 05/25/[address] [facility] [address]: Macy Elder REQ: [id number] RECD: 05/25/12 STATUS: WALLY MCMAHAN DR: _ SOURCE: URINE SPDESC: ORDERED: Urine Culture QUERIES: Medent Number [id number] Urine Source: Random Procedure Result Verified Site Urine Culture Final 05/27/12- 1612 ML Organism 1 NORMAL RONI [place] Count 1-10,000 (Few) CFU/ML END OF REPORT * ML=Testing performed at Main Lab DEPARTMENT OF PATHOLOGY, [facility] [employer] [place], [place] [address] Surinder Hernandez M.D. Director [facility] Permit #[id number] 42 RUN DATE: 05/22/12 [facility] LAB LIVE PAGE 1 RUN TIME: 2057 [facility] [employer] [place], [place] [address] Specimen Inquiry Name: COURTNEY ACUÑA : [address]: Macy Elder Acct: [id number] Unit: [id number] AGE: 56 Location: [facility] Re05/18/12 SEX: F Status: REG REF SPEC : [id number] RECD: 05/21/12 STATUS: AMANDA SIMS NUM: [id number] MIKEY: 05/18/12- SUBM DR: Key Eldernne ENTERED: 05/21/12 SP TYPE: SURGICAL P OT DR: ORDERED: LEVEL III FINAL DIAGNOSIS Sebaceous cyst [...] performed at Main Lab DEPARTMENT OF PATHOLOGY, [address] [place] [address] Surinder Hernandez M.D. Director [facility] Permit #[id number] 43 CHOLESTEROL INTERPRETATION: Desirable: Less than 200 [...] 0.06 ng/mL NOT SUPPORTIVE OF DIAGNOSIS OF [place] 0.06 - 0.50 ng/ml INDETERMINATE: SUGGEST SERIAL STUDIES IF CLINICALLY INDICATED. Greater than 0.5 ng/mL CONSISTENT WITH DIAGNOSIS OF [place] . 53 CHOLESTEROL INTERPRETATION: Desirable: Less than [...] has been shown to interfere with the Jendrassik-Guy method for measuring total bilirubin. Samples from [...] (or dialysis) 58 ---- RUN DATE: 04/11/11 [facility] NMI LIVE PAGE 1 RUN TIME: 1527 Specimen Inquiry RUN USER: INTERFACE -- Name: COURTNEY ACUÑA Ken Status: REG REF Re04/08/11 Age/Sex: 55/F Unit#: [id number] Location: [facility] : 53 -- Specimen: [id number] Spec Date: 04/08/[address]: Macy ORTIZP Spec Type: CYTOLOGY Received: 04/11/11-1142 Copies to: [...] 15 24 -- -- DEPARTMENT OF PATHOLOGY, [address] [place] [address] [facility] Permit #[id number] Surinder Hernandez M.D. Director Sangeeta Mendenhall M.D. Accounts Collector Dir goldman -- Procedures Date Code Description Status 05/09/2018 84991 EKG Tracing & Interpretation Completed 11/29/2017 23318 Inject Tendon Sheath Or Ligament Aponeurosis Eg Plantar Completed Fascia 07/25/2017 [id number] Mammogram Completed 03/08/2017 72187 Inject Tendon Sheath Or Ligament Aponeurosis Eg Plantar Completed Fascia 07/20/201682982 Inject Tendon Sheath Or Ligament Aponeurosis Eg Plantar Completed Fascia 06/22/2016 [id number] Colonoscopy Completed 06/10/2016 [id number] Mammogram Completed 02/25/2016 72587 EKG Tracing & Interpretation Completed 06/05/2015 [id number] Mammogram Completed 02/18/2015 09998 Treadmill Interp/Report Only Completed 02/18/2015 81820 Stress Test Supervsn W/Out I/R Completed 02/18/2015 98107 Stress Test Completed 02/18/2015 19301 Myocardial Perfusion Imaging Tomographic (Spect) Completed Multiple Studies 12/18/2014 51895 EKG Tracing & Interpretation Completed 06/25/2014 42581 EKG Tracing & Interpretation Completed 05/28/2014 28578 Inject Tendon Sheath Or Ligament Aponeurosis Eg Plantar Completed Fascia 05/09/2014 [id number] Mammogram Completed 12/19/2013 09943 EKG Tracing & Interpretation Completed 08/01/2013 76308 open tx of metacarpal fx,single inclds internal Completed fixation when per 08/01/2013 51591 open tx of metacarpal fx,single inclds internal Completed fixation when per 08/01/2013 93763 Trigger Finger Release Incision / Tendon Sheath Completed Incision 08/01/2013 29244 Trigger Finger Release Incision / Tendon Sheath Completed Incision 05/16/2013 71132 Holter Monitoring 24 HR New Completed 05/14/2013 15343 Stress Test Completed 05/14/2013 68578 Myocardial Perfusion Imaging Tomographic (Spect) Completed Multiple Studies 05/08/2013 94407 EEG Recording Awake & Drowsy Completed 05/08/2013 79131347 Mammogram Completed 05/02/2013 34649 EKG Tracing & Interpretation Completed 04/19/2013 40351 EKG Tracing & Interpretation Completed 01/23/2013 12520 Inject Tendon Sheath Or Ligament Aponeurosis Eg Plantar Completed Fascia 01/09/201364220 Inject Tendon Sheath Or Ligament Aponeurosis Eg Plantar Completed Fascia 01/09/201356209 Inject Tendon Sheath Or Ligament Aponeurosis Eg Plantar Completed Fascia 01/09/201339520 Inject Tendon Sheath Or Ligament Aponeurosis Eg Plantar Completed Fascia 05/18/2012 66441 Excise Benign lesion 1.1-2CM Trunk/Arm/Leg Completed 05/18/2012 69732 excision, soft tissue of back, or flank Completed 04/27/2012 53720118 Mammogram Completed 11/08/2011 91287 Holter Monitor Review (24 hr)dr review & interp only Completed 11/02/2011 45176 EKG Tracing & Interpretation Completed 04/15/2011 57444424 Mammogram Completed 01/14/2010 86955684 Mammogram Completed 01/06/2010 72504 Biopsy Cervix, Single Or Multiple, Or Local Excision Of Completed Lesion 10/27/2008 02957 Holter Monitor Review (24 hr) review & interp only Completed 12/18/2007 76108 EKG Tracing & Interpretation Completed 12/18/2007 51098 EKG Tracing & Interpretation Completed 12/05/2006 06395 EKG Tracing & Interpretation Completed Encounters Type Date Location Provider Dx Diagnosis Office Visit 07/10/2018 [facility] Isabel Granados MD L29.2 Pruritus vulvae 4:30p Medicine - [place] Office Visit 05/09/2018 [facility] Yoel Delgado I49.3 Ventricular premature 4:00p Of [facility] DO Zane FACC depolarization Office Visit 09/04/2017 [facility] Internal Oliverio Solomon NP M25.511 Pain in right 4:00p Medicine - shoulder [place] R53.1 Weakness Office Visit 06/26/2017 9:20a [facility] Macy Enriquez Z00.01 Encounter for Medicine - N.P. general adult [place] medical exam w abnormal findings Z12.31 Encntr [...] middle C.M.A. finger Office Visit 05/27/2016 1:40p [facility] Internal Macy Enriquez, Z00.00 Encntr for Medicine - N.P. general adult [place] medical exam w/o abnormal findings Z12.31 Encntr screen mammogram for malignant neoplasm of breast E78.00 Pure hypercholesterolemia, unspecified Z85.51 Personal history of malignant neoplasm of bladder R00.2 Palpitations E55.9 Vitamin D deficiency, unspecified Office Visit 02/25/2016 2:40p [facility] Brent Phillips, I47.2 Ventricular Of [place] AT [facility], tachycardia [facility] Office Visit 05/22/2015 3:20p [facility] Internal Macy Enriquez, Z00.00 Encntr for Medicine - N.P. general adult [place] medical exam w/o abnormal findings Z12.39 Encounter for oth screening for malignant neoplasm of breast E78.2 Mixed hyperlipidemia C67.8 Malignant neoplasm of overlapping sites of bladder I49.3 Ventricular premature depolarization Office Visit 03/12/2015 2:40p [facility] Brent Phillips, 785.1 Palpitations Of [place] AT [facility], [facility] 427.1 Paroxysmal Ventricular Tachycardia Office Visit 01/29/2015 2:40p [facility] Brent Phillips, 785.1 Palpitations Of [place] AT [facility], [facility] 427.69 Premature Beats Other Office Visit 12/18/2014 2:40p [facility] Brent Phillips, 427.69 Premature Beats Of [place] AT [facility], Other [facility] 785.1 Palpitations Office Visit 06/25/2014 9:20a [facility] Internal Mayc Enriquez, 427.69 Premature Beats Medicine - N.P. Other [place] 300.00 Anxiety State Unspec Office Visit 05/28/2014 [facility] Ayesha 727.03 Trigger Finger 8:30a Services Of Sharri Lynn Acquired C.M.A. Office Visit 05/16/2014 [facility] Misha Myers, 726.72 Tendinitis 1:30p Services Of Sharri Tibialis C.M.A. Office Visit 05/02/2014 [facility] Internal Macy Enriquez, V70.0 Examination 3:20p Medicine - N.P. [facility] Routine AT Health Care Facility V72.31 Routine Screw Down Examination V76.10 Screening For Malignant Neoplasm Breast 272.4 Hyperlipidemia Other Unspec 188.8 Malignant Neoplasm Bladder Other Spec Sites Office Visit 04/11/2014 1:00p [facility] Misha 726.72 Tendinitis Services Of Sharri Myers Tibialis C.M.Elisa 726.71 Bursitis Or Tendinitis Achilles Office Visit 03/19/2014 10:40a [facility] Internal Macy Zoe, 599.0 UTI Urinary Medicine - N.P. Tract Infection [place] Site Not Spec 729.5 Pain In Limb Office Visit 12/19/2013 3:00p [facility] Brent Phillips, 427.69 Premature Beats Of [place] AT [facility] M.Kade, [facility], Other [facility] 272.4 Hyperlipidemia Other Unspec Office Visit 09/25/2013 1:00p [facility] S. 780.4 Dizziness & Services Of [facility] Sharri Mcadams Giddiness 794.02 Electroencephalogram Abnormal Brain & Central Nervous Sys Office Visit 05/30/2013 9:30a [facility] Brent Phillips, 427.69 Premature Beats Of [facility] Sharri, [facility], Other [facility] 780.4 Dizziness & Giddiness Office Visit 05/22/2013 [facility] Ayesha 727.03 Trigger Finger 11:15a Services Of Sharri Lynn Acquired C.M.A. Office Visit 05/02/2013 [facility] Phillips M.D., 780.4 Dizziness & 2:15p Cardiology Of [facility], [facility] Giddiness [facility] 427.69 Premature Beats Other Office Visit 04/19/2013 3:00p [facility] Internal Macy Zoe, V70.0 Examination Medicine - N.P. [facility] Routine AT Health Care Facility V72.31 Routine Screw Down Examination V76.10 Screening For Malignant Neoplasm Breast 272.4 Hyperlipidemia Other Unspec 188.8 Malignant Neoplasm Bladder Other Spec Sites 780.4 Dizziness & Giddiness Office Visit 01/23/2013 [facility] Ayesha 727.03 Trigger Finger 11:00a Services Of Sharri Lynn Acquired C.M.A. Office Visit 01/09/2013 [facility] A[facility]ha 727.03 Trigger Finger 8:30a Services Of Sharri Lynn Acquired C.M.A. Office Visit 05/25/2012 [facility] Internal Macy Varn, N.P. 599.0 UTI Urinary 2:20p Medicine - Tract Infection [place] Site Not Spec V58.32 Encounter For Removal Of Sutures Office Visit 05/16/2012 10:00a [facility] Internal Macy Enriquez, 706.2 Sebaceous Cyst Medicine - N.P. [place] Office Visit 04/13/2012 3:00p [facility] Internal Macy Varn, V70.0 Examination Medicine - N.P. [facility] Medical [place] Routine AT [facility] Facility V72.31 Routine Screw Down Examination V76.10 Screening For Malignant Neoplasm Breast 272.4 Hyperlipidemia Other Unspec 188.8 Malignant Neoplasm Bladder Other Spec Sites 727.03 Trigger Finger Acquired Office Visit 11/09/2011 10:40a [facility] Internal Laura Gray, 785.1 Palpitations [facility]., [facility] [place] Office Visit 11/02/2011 10:40a [facility] Lauragodfrey Gray, 785.1 Palpitations [facility] Visit 06/07/2011 4:20p DO Not Use Macy Varn, 681.02 Onychia & Rice [place] N.P. Paronychia Finger Office Visit 04/08/2011 3:00p DO Not Use Macy Varn, V70.0 Examination [place] N.P. General Medical Routine AT [facility] V72.31 Routine Screw Down Examination 272.4 Hyperlipidemia Other Unspec 188.8 Malignant Neoplasm Bladder Other Spec Sites Office Visit 02/16/2011 DO Not Use Macy Varn, 719.41 Pain Joint 2:00p [place] N.P. Shoulder Region Office Visit 12/25/2009 DO Not Use Macy Varn, V72.31 Routine Screw Down 3:00p [facility]-[place] N.P. Examination 622.7 Mucous Polyp Cervix Office 10/31/2008 DO Not Use Macy 272.0 Hypercholesterolemia Visit 2:30p [place] Varn, N.P. Pure Office 10/17/2008 DO Not Use Laura Gray, 785.1 Palpitations Visit 2:15p [place] M.D., FACP 786.05 Shortness Of Breath 300.00 Anxiety State Unspec Office Visit 04/02/2008 DO Not Use Macy 466.0 Bronchitis Acute 9:00a [facility]-Silviano Varn, N.P. Office Visit 12/18/2007 DO Not Use Macy V72.31 Routine Screw Down 2:30p [facility]-Silviano Stroudn, N.P. Examination Office Visit 01/12/2007 DO Not Use Macy 272.4 Hyperlipidemia 2:30p Jaswinder-Silviano Varn, N.P. Other Unspec 794.8 Liver Study Abnormal Office Visit 12/05/2006 DO Not Use Macy Enriquez, V72.31 Routine Screw Down 2:45p Jaswinder-Silviano N.P. Examination 272.0 Hypercholesterolemia Pure V06.1 Yidvqbhktl-Vncokxh-Dlsuzjcj Combined (DTaP) Plan of Treatment Future Appointment(s):08/02/2019 2:20 pm - Macy Enriquez, N.P. at [facility] Internal Medicine [facility]
[2018-08-11 14:09] VITALS: BP 142/81
--- NOTE | 2018-08-11 14:30 | UC ---
Respiratory Complaint HPI - HPI Summary HPI Summary: Started w/ worsening cough over the past 5 days. developed R rib pain 2 days ago. non smoker. Has tried all otc meds w/ no relief. - History of Current Complaint Chief Complaint: UCRespiratory Stated Complaint: URI Time Seen by Provider: 08/11/18 14:18 Hx Obtained From: Patient Hx Last Menstrual Period: na Onset/Duration: Gradual Onset Pain Intensity: 8 Pain Scale Used: 0-10 Numeric Aggravating Factors: Deep Breaths Alleviating Factors: OTC Meds Associated Signs And Symptoms: Negative: Dyspnea, Fever, Chills - Allergies/Home Medications Allergies/Adverse Reactions: Allergies Allergy/AdvReac Type Severity Reaction Status Date / Time No Known Allergies Allergy Verified 08/01/13 06:54 Home Medications: Home Medications Omeprazole 20 mg PO DAILY WITH MEAL 08/11/18 [History Confirmed 08/11/18] PMH/Surg Hx/FS Hx/Imm Hx Endocrine History: Other - obese - Surgical History Surgical History: Yes Surgery Procedure, Year, and Place: CARPAL TUNNEL AND TRIGGER FINGER SURGERIES; . PINS AND PLATES IN WRIST (REMOVED); - Social History Alcohol Use: None Substance Use Type: None Smoking Status (MU): Former Smoker When Did the Patient Quit Smoking/Using Tobacco: 40 years Review of Systems All Other Systems Reviewed And Are Negative: Yes Constitutional: Positive: Negative Skin: Positive: Negative Respiratory: Positive: Cough - productive, Other - R rib pain. Negative: Shortness Of Breath Cardiovascular: Positive: Negative Gastrointestinal: Negative: Vomiting, Diarrhea Neurovascular: Positive: Negative Physical Exam Triage Information Reviewed: Yes Appearance: Well-Appearing Vital Signs: Initial Vital Signs Temp 97.0 F 08/11/18 14:04 Pulse 81 08/11/18 14:04 Resp 18 08/11/18 14:04 BP 142/81 08/11/18 14:04 Pulse Ox 99 08/11/18 14:04 Vital Signs Reviewed: Yes Eyes: Positive: Conjunctiva Clear ENT: Positive: Normal ENT inspection Neck: Positive: Supple, No Lymphadenopathy Respiratory: Positive: No respiratory distress, No accessory muscle use, Decreased breath sounds - RLL Cardiovascular Exam: Normal Neurological: Positive: Alert Skin Exam: Normal UC Diagnostic Evaluation - Laboratory O2 Sat by Pulse Oximetry: 99 Respiratory Course/Dx - Course Course Of Treatment: 5 day hx of cough w/ abnormal lung exam suspected lower resp. infxn. Will tx. Good vitals , no resp. distress. - Differential Dx/Diagnosis Differential Diagnosis/HQI/PQRI: CHF, Lower Resp Infection Provider Diagnosis: Lower respiratory infection Discharge - Sign-Out/Discharge Documenting (check all that apply): Patient Departure All imaging exams completed and their final reports reviewed: No Studies - Discharge Plan Condition: Good Disposition: HOME Prescriptions: Azithromycin TAB* [Zithromax TAB (Z-KELLY) 250 mg #6 tabs] 2 tab PO .TODAY, THEN 1 DAILY #1 kelly Patient Education Materials: Upper Respiratory Infection (ED) Referrals: Zohra Klein MD [Primary Care Provider] - Additional Instructions: if no improvement follow up with pcp - Billing Disposition and Condition Condition: GOOD Disposition: Home
== END 2018-08-11 14:55 | disposition home or self-care (01) ==
LOC: UCEAST 13:59
DX: J22 Unspecified acute lower respiratory infection (principal); Z87.891 Personal history of nicotine dependence
CPT/HCPCS: 99212; G0463

== ENCOUNTER 2018-08-13 13:03 | Emergency (ER) | payer BC ==
[2018-08-13 13:44] VITALS: BP 136/77
--- NOTE | 2018-08-13 13:51 | UC ---
Respiratory Complaint HPI - HPI Summary HPI Summary: 62 yo female presents with RIGHT rib pain. She tells me that she was seen here a few days ago and placed on zpak for an upper respiratory illness. Since that time she has been doing a lot of coughing. Yesterday, while coughing, she felt a pull in her right ribs that has been painful since. She called her PCP and her pcp rx'd her tramadol, but pt has not taken this yet. Currently she denies fever, chills, SOB, chest pain, n/v. - History of Current Complaint Chief Complaint: UCRespiratory Stated Complaint: RIB PAIN Time Seen by Provider: 08/13/18 13:51 Hx Obtained From: Patient Hx Last Menstrual Period: post Severity Initially: Moderate Severity Currently: Severe Pain Intensity: 8 Pain Scale Used: 0-10 Numeric Character: Cough: Nonproductive - Allergies/Home Medications Allergies/Adverse Reactions: Allergies Allergy/AdvReac Type Severity Reaction Status Date / Time No Known Allergies Allergy Verified 08/13/18 13:46 Home Medications: Home Medications PARoxetine HCL TAB* [Paxil TAB*] 1 tab PO DAILY 08/13/18 [History Confirmed ] PMH/Surg Hx/FS Hx/Imm Hx Cardiovascular History: Hypertension Psychological History: Anxiety, Depression - Surgical History Surgical History: Yes Surgery Procedure, Year, and Place: CARPAL TUNNEL AND TRIGGER FINGER SURGERIES; . PINS AND PLATES IN WRIST (REMOVED); - Family History Known Family History: Positive: Unknown - Social History Lives: With Family Alcohol Use: None Substance Use Type: None Smoking Status (MU): Former Smoker When Did the Patient Quit Smoking/Using Tobacco: 40 years Review of Systems All Other Systems Reviewed And Are Negative: Yes Constitutional: Positive: Negative Skin: Positive: Negative Eyes: Positive: Negative ENT: Positive: Negative Respiratory: Positive: Cough Cardiovascular: Positive: Negative Gastrointestinal: Positive: Negative Neurovascular: Positive: Negative Musculoskeletal: Positive: Other: - Right rib pain Neurological: Positive: Negative Psychological: Positive: Negative Physical Exam - Summary Physical Exam Summary: GENERAL: NAD. WDWN. No pain distress. SKIN: No rashes, sores, lesions, or open wounds. HEENT: Head: AT/NC Eyes: EOM intact. Conjunctiva clear without inflammation or discharge. Ears: Hearing grossly normal. TMs intact, no bulging, erythema, or edema. Nose: Nasal mucosa pink and moist. NTTP maxillary and frontal sinus. Throat: Posterior oropharynx without exudates, erythema, or tonsillar enlargement. Uvula midline. NECK: Supple. Nontender. No lymphadenopathy. CHEST: Mild wheezing RLL and LLL. No accessory muscle use. Breathing comfortably and in no distress. CV: Pulses intact. Cap refill <2seconds MSK: TTP at ~6th right lateral rib. Worse with UE movement. NEURO: Alert. PSYCH: Age appropriate behavior. Triage Information Reviewed: Yes Vital Signs: Initial Vital Signs Temp 97 F 08/13/18 13:39 Pulse 88 08/13/18 13:39 Resp 17 08/13/18 13:39 BP 136/77 08/13/18 13:39 Pulse Ox 94 08/13/18 13:39 Vital Signs Reviewed: Yes Diagnostic Evaluation - Laboratory O2 Sat by Pulse Oximetry: 94 Respiratory Course/Dx - Course Course Of Treatment: XR: IMPRESSION: NO DISPLACED RIB FRACTURE OR PNEUMOTHORAX. Suspect muscle strain from cough. She has contacted her PCP about this and was rx'd tramadol, which has she has not tried yet. Will rx tessalon and advise her to f/u with her PCP. - Differential Dx/Diagnosis Provider Diagnosis: Cough, Muscle strain Discharge - Sign-Out/Discharge Documenting (check all that apply): Patient Departure All imaging exams completed and their final reports reviewed: Yes - Discharge Plan Condition: Stable Disposition: HOME Prescriptions: Benzonatate CAP* [Tessalon 100 MG CAP*] 100 mg PO TID PRN #30 cap PRN Reason: Cough Patient Education Materials: Acute Cough (ED) Referrals: Zohra Klein MD [Primary Care Provider] - 1 Week Additional Instructions: If you develop a fever, shortness of breath, chest pain, new or worsening symptoms - please call your PCP or go to the ED. Please schedule a follow up with your doctor this week for a recheck - Billing Disposition and Condition Condition: STABLE Disposition: Home
== END 2018-08-13 14:45 | disposition home or self-care (01) ==
LOC: UCEAST 13:03
DX: S29.011A Strain of muscle and tendon of front wall of thorax, initial encounter (principal); R05 Cough; F32.9 Major depressive disorder, single episode, unspecified; I10 Essential (primary) hypertension; Z79.899 Other long term (current) drug therapy; Z87.891 Personal history of nicotine dependence; X58.XXXA Exposure to other specified factors, initial encounter; Y92.9 Unspecified place or not applicable
CPT/HCPCS: 99212; G0463

== ENCOUNTER 2018-08-18 21:07 | Emergency (ER) | payer BC ==
--- OUTSIDE RECORDS SUMMARY | 2018-08-18 21:13 | XMS REPORT | Continuity of Care Document ---
:1955 External Reference #:[id number] Author Name Rosaline Escalante Care Team Providers Name Role Phone Zohra Klein MD Primary Care Physician Unavailable Payers Type Date Identification Numbers Payment Provider Subscriber Policy Number: [id number] [employer] Courtney Acuña PayID: [id number] [address] [address] [place] [address] Advance Directives Type Date Description Status Comment Other Directive 06/27/2017 Health Care Proxy Current and Verified Problems Date Description Provider Status Onset: 04/08/2011 Hyperlipidemia Macy Enriquez, N.P. Active Onset: 03/12/2015 Paroxysmal ventricular Brent Phillips M.D., [facility], Active tachycardia [facility] Onset: 04/08/2011 Malignant tumor of urinary Macy Enriquez, N.P. Active bladder Onset: 12/19/2013 Premature beats Brent Phillips M.D., [facility], Active [facility] Onset: 12/18/2014 Palpitations Brent Phillips M.D., [facility], Active [facility] Family History Date Family Member(s) Problem(s) Comments General Heart Disease : (age 58 Father due to [place] Smoker Years) Mother Heart Valve Disease Aortic Valve Replacement, Hyperlipidemia, ? 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 times daily as needed Zithromax Z-Romel 08/11 Active Tablets 250mg 1tabs Azithromyc in Tab* Nystatin 07/10 Active Ointment 812623Ddi 15gm Apply thin L29.2 t/GM layer on MD Darwin affected area twice a day Omeprazole 08/15 Active Capsules 20mg 90cap [address] s every day Varn, N.P. Paroxetine HCL 09/28 Active Tablets 20mg 30tab 1 by mouth s every day Varn, N.P. Metoprolol 01/29 Active Tablets 25mg 60tab 1 by mouth I49.3 Macy Succinate ER /2014 ER 24HR s twice a Varn, N.P. day Crestor 04/16 Active Tablets 10mg 90tab 1 by mouth Macy /2013 s every day Varn, N.P. Advil PM [...] Tablets 150mg 2tabs one by N77.1 mouth may Varn, N.P. - repeat in 07/02 3 days needed Lotrisone 06/26 Hx Cream 1-0.05% 15gm apply N77.1 externally Varn, N.P. - bid-tid 07/10 Vitamin D3 05/15 Hx Capsules 20278Vfuw 8caps one by mouth once Varn, N.P. - weekly 07/14 Metoprolol 12/18 Hx Tablets 25mg 30tab 1 by mouth 427.69 Brent Succinate ER 24HR s every day Lydia Phillips M.D., 01/29 [facility], /2014 [facility] Escitalopram 06/25 Hx Tablets 10mg 30tab 1 by mouth F41.9 s every day Varn, N.P. - 09/28 Ciprofloxacin HCL 03/19 Hx Tablets 250mg 14tab one by 599.0 s mouth Varn, N.P. - twice a 03/26 day for days Provo 07/17 Hx Tablets 5-325mg 40tab 1-2 po s q4-6h prn Sp-Nawaf - nick roach M.D. 08/28 pain Cipro 05/25 Hx Tablets 250mg 14tab one by 599.0 s nouth Varn, N.P. - twice 06/01 daily for 7 days Cephalexin 05/18 Hx Tablets 500mg 21tab one three 706.2 s times Varn, N.P. - daily for 05/25 Cephalexin 06/07 Hx Tablets 500mg 21tab one three 681.02 s times Marina, - daily for M.Kade, FAC 06/14 Tylenol PM 04/08 Hx Tablets 2 tablets at bedtime Lydia Gray M.D., FACP 04/13 Herbal Menapausal 04/08 Hx 1 qd Laura Lydia Gray M.D., FACP 11/01 Crestor 02/07 Hx Tablets 5mg 30tab Take 1 s Tablet By Cotton, - Mouth Once M.D. 04/16 Medications Administered in Office Medication Date Status Form Strength Qnty SIG Indications Ordering Provider Depomedrol Administered Injection Ninfa 40MG 018 Sharri Ernandez Depomedrol Administered Injection Ninfa 40MG 018 Sharri Ernandez Depomedrol Administered Injection Trisha 40MG 017 Bitting, ESTELA-C Depomedrol Administered Injection Trisha 40MG 016 Bitting, ESTELA-C Technetium TC Administered Injection Zackery Mullen 99M 015 Addi Burrell M.D., FACC, Per Unit Dose FASNC Up To 40 Millicuries Technetium TC Administered Injection Stephen Wilcox 99M 015 Addi Garibay M.D. Per Unit [...] CPT Code Status Date Vaccine Lot # [id number] Given 05/05/2018 Influenza Virus Vaccine, Quadrivalent, Split, Preservative Free 76829 Given 04/10/2017 Pneumonia Vaccine 30884 Given 04/10/2017 Influenza Virus Vaccine, Quadrivalent, Split, Preservative Free 46481 Given 05/05/2016 Tdap - Tetanus/Diptheria/Acellular Pertussis Q2035 Given 04/20/2016 Afluria Vaccine 43252 Given 05/11/2015 Zoster (Zostavax) Q2035 Given 04/27/2015 Afluria Vaccine 74403 Given 04/27/2015 Pneumococcal Conjugate Vaccine 13 Valent For Intramuscular Use 18201 Given 04/22/2014 Influenza Virus 3Yrs & Over 07355 Given 04/22/2014 Influenza Virus 3Yrs & Over Q2035 Given 04/17/2013 Afluria Vaccine Q2038 Given 04/19/2012 Fluzone Vaccine 88321 Given 04/28/2011 Influenza Virus 3Yrs & Over 46100 Given 05/28/2007 Influenza Virus 3Yrs & Over 48743 Given 12/05/2006 Tdap - Tetanus/Diptheria/Acellular Pertussis Vital Signs Date Vital Result Comment 08/15/2018 10:55am Height 56 inches 4'8" Weight 152.00 lb Heart Rate 82 /min BP Systolic Sitting 123 mmHg BP Diastolic Sitting 85 mmHg Body Temperature 97.7 F O2 % BldC Oximetry 96 % BMI (Body Mass Index) 34.1 kg/m2 08/02/2018 1:48pm Height 56 inches 4'8" Weight [...] inches 4'8.50" Weight 137.00 lb Heart Rate 63042 /min BP Systolic Sitting 112 mmHg LA [...] H/L Range Note Comp Metabolic Panel 07/21/2018 [facility] Sodium 140 mmol/L N 135-145 [address] [place] [address] [phone] Potassium 4.4 mmol/L N 3.5-5.0 Chloride 103 [...] Egfr 94.4 >60 1 Laboratory test 07/21/2018 [facility] TSH (Thyroid 2.46 mcIU/mL N 0.34-5.[address] Stim Horm) [place] [address] [phone] Vitamin D Total 25(Oh) 28.4 ng/mL N 20-50 Lipid Profile 07/21/2018 [facility] Triglycerides 207 mg/dL 2 (Trig/Chol/HDL) [address] [place], [place] [address] [phone] Cholesterol 215 mg/dL 3 HDL Cholesterol 49.4 mg/dL 4 LDL Cholesterol 124 mg/dL 5 Urine Culture And 04/24/2018 [facility] Urine SEE RESULT [address] [place] [address] [phone] Laboratory test 06/26/2017 [facility] HPV Rna Negative Negative 7, [address] Ww/[place] [address] Genotype [phone] Cytology SEE RESULT BELOW 9 Comp Metabolic Panel 06/09/2017 [facility] Sodium 135 mmol/L N 133-[address] [place] [address] [phone] Potassium 4.2 mmol/L N 3.5-5.0 Chloride 101 [...] 100.7 N >60 10 Lipid Profile 06/09/2017 [facility] Triglycerides 190 mg/dL N 11 (Trig/Chol/HDL) [address] [place], [place] [address] [phone] Cholesterol 209 mg/dL N 12 HDL Cholesterol 50.7 mg/dL N 13 LDL Cholesterol 120 mg/dL N 14 Laboratory test 07/05/2016 [facility] Vitamin D Total 30.7 ng/ mL N 30-[address] 25(Oh) [place], [place] [address] [phone] Laboratory test 06/22/2016 [facility] Surgical Pathology SEE RESULT [address] BELOW [place], [place] [address] [phone] Lipid Profile 05/11/2016 [facility] Triglycerides 188 mg/dL N 16 (Trig/Chol/HDL) [address] [place], [place] [address] [phone] Cholesterol 203 mg/dL N 17 HDL Cholesterol 50.5 mg/dL N 18 LDL Cholesterol 115 mg/dL N 19 Comp Metabolic Panel 05/11/2016 [facility] Sodium 137 mmol/L N 133-[address] [place] [address] [phone] Potassium 4.3 mmol/L N 3.5-5.0 Chloride 102 [...] 113.1 N >60 20 Laboratory test 05/11/2016 [facility] TSH (Thyroid 1.55 mcIU/mL N 0.34-5.[address] Stim Horm) [place] [address] [phone] Vitamin D Total 25(Oh) 10.9 ng/mL Low 30-50 Comp Metabolic Panel 05/06/2015 [facility] Sodium 140 mmol/L N 133-145 [address] [place] [address] [phone] Potassium 4.0 mmol/L N 3.5-5.0 Chloride 105 [...] 126.3 N >60 21 Lipid Profile 05/06/2015 [facility] Triglycerides 174 mg/dL N 22 (Trig/Chol/HDL) [address] [place] [address] [phone] Cholesterol 195 mg/dL N 23 HDL Cholesterol [...] mg/dL N 1.9-2.7 finding Laboratory test 05/02/2014 [facility] Cytology RUN DATE: [address] 05/05/ [place] [address] NOTE> [phone] HPV High Risk 05/02/2014 [facility] Human Papillomavirus See Comment N [address] [place] [address] [phone] HPV High Risk Type 16, PCR Negative N Negative HPV High Risk Type 18, PCR Negative N Negative HPV Other Risk types Negative N Negative 29 Urinalysis Profile 03/19/2014 [facility] Urine Color Yellow N [address] [place] [address] [phone] Urine Appearance Cloudy N Urine Specific [place] 1.016 N 1.010-1.030 Urine pH 7.0 N [...] Present Abnormal Absent Urine Culture And 03/19/2014 [facility] Urine Culture (SEE NOTE ) [address] [place] [address] [phone] Ua Routine 03/19/2014 [facility] Ua Specific 1.005 [place] Ua PH 7.5 Ua Color yellow Ua Appera clear Ua WBC mod Ua Protein trace Ua Glucose neg Ua Ketones trace Ua Bilirubin trace Ua Urobilinogen normal Ua Nitrite neg Ua Occult Blood trace Lipid Profile 03/19/2014 [facility] Triglycerides 219 mg/dL N 31 (Trig/Chol/HDL) [address] [place] [address] [phone] Cholesterol 201 mg/dL N 32 HDL Cholesterol 56.2 mg/dL N 33 LDL Cholesterol 101 mg/dL N 34 Liver Function 03/19/2014 [facility] Total Protein 6.8 g/dL N 6.4-8.9 Panel [address] [place] [address] [phone] Albumin 4.3 g/dL N 3.2-5.2 Globulin 2.5 g/dL N 2-4 Albumin/Globulin Ratio 1.7 N 1-3 Total Bilirubin 0.60 mg/dL N 0.2-1.0 Direct Bilirubin 0.10 mg/dL N 0.03-0.18 Indirect Bilirubin 0.5 mg/dL N 0.3-1.0 Alkaline Phosphatase 77 U/L N 34-104 Alt 16 U/L N 7-52 Ast 14 U/L N 13-39 Lipid Profile 06/05/2013 [facility] Triglycerides 105 mg/dL 40-200 (Trig/Chol/HDL) [address] [place] [address] [phone] Cholesterol 192 mg/dL Less than 200 HDL Cholesterol 64 mg/dL High 40-60 35 Cholesterol/HDL Ratio 3.0 Average 1-4.44 LDL Cholesterol 107.0 High Less Than 100 36 Liver Function 06/05/2013 [facility] Total Protein 6.4 g/dL 6.2-8.1 Panel [address] [place] [address] [phone] Albumin 3.9 g/dL 3.6-5.4 Globulin 2.5 g/dL 2-4 Albumin/Globulin Ratio 1.6 1-3 Total Bilirubin 0.5 mg/dL 0.4-1.5 Direct Bilirubin 0.1 mg/dL 0.1-0.5 Indirect Bilirubin 0.4 mg/dL 0.3-1.0 Alkaline Phosphatase 70 U/L 30-110 Alt 20 U/L 14-54 Ast 21 U/L 12-42 Laboratory 06/05/2013 [facility] Hepatitis C Nonreactive Nonreactive 37 test finding 101 [facility] [place] [address] [phone] Comp Metabolic 04/10/2013 [facility] Sodium 139 mmol/L 133- 145 Panel [address] [place] [address] [phone] Potassium 4.3 mmol/L 3.5-5.0 Chloride 105 mmol/L [...] >60 Egfr 132.1 >60 38 Laboratory 04/10/2013 [facility] TSH (Thyroid 0.89 0.34-5.[address] Stimulating miu/[place] [address] Horm) [phone] Lipid Profile 04/10/2013 [facility] Triglycerides 201 mg/dL High 40-200 (Trig/Chol/HDL DRIVE ) [place] [address] [phone] Cholesterol 235 mg/dL High Less than 200 HDL Cholesterol 61 mg/dL High 40-60 39 Cholesterol/HDL Ratio 3.9 Average 1-4.44 LDL Cholesterol 133.8 High Less Than 100 40 Ua W/Microscopic 05/25/2012 [facility] Ua Appera Cloudy Ua Bacteria NEG Ua Bilirubin Negative Ua Blood Large Ua Casts Hyaline NEG Ua Casts Other NEG Ua Color Brown/Red Ua Crystals NEG Ua Epithelial Cells NEG Ua Glucose Negative Ua Ketones Negative Ua Leuko Negative Ua Nitrite Negative Ua PH 5 Ua Protein 30 Ua RBC MOD Ua Specific [place] 1.025 Ua Urobilinogen Negative Ua WBC FEW Ua Yeast NEG Urine Culture & 05/25/2012 [facility] Urine Culture (SEE NOTE) [address] [place] [address] [phone] Laboratory test 05/18/2012 [facility] Surgical Pathology RUN DATE: [address] [place] [address] <SEE NOTE> [phone] Laboratory test 04/18/2012 [facility] TSH 0.83 0.34- finding [address] MIU/ML 5.60 [place] [address] [phone] Lipid Profile 04/18/2012 [facility] Triglyceride 82 mg/dL 40- 20 (Trig/Chol/HDL) [address] [place] [address] [phone] Cholesterol 197 mg/dL Less Than 200 43 High Density Lipoprotein 57 mg/dL 40-60 44 Cholesterol/HDL Ratio 3.46 AVERAGE 1-4.44 Low Density Lipoprotein 124 mg/dL High Less Than 100 45 Comp Metabolic Panel 04/18/2012 [facility] Sodium 140 mmol/L 135-[address] [place] [address] [phone] Potassium 4.3 mmol/L 3.5-5.0 Chloride 110 mmol/L [...] 132.5 > 60 48 Ua Routine 04/13/2012 [facility] Ua Specific [place] 1.010 Ua PH 5 Ua Color dark yellow Ua Appera clear Ua WBC neg Ua Protein neg Ua Glucose neg Ua Ketones neg Ua Bilirubin neg Ua Urobilinogen neg Ua Nitrite neg Ua Occult Blood Non hem trace CBC With Manual 11/02/2011 [facility] White Blood 6.9 CUMM 4.8-10.[address] [place] [address] [phone] Red Cell Count 4.40 CUMM 4.2-5.4 Hemoglobin [...] RBC Morphology NORMAL Comp Metabolic Panel 11/02/2011 [facility] Sodium 138 mmol/L 135-145 [address] [place] [address] [phone] Potassium 3.9 mmol/L 3.5-5.0 Chloride 99 mmol/L [...] 164.1 > 60 51 Laboratory test 11/02/2011 [facility] TSH 1.04 MIU/ML 0.34- 5.60 finding [address] [place] [address] [phone] Troponin-I 0 NG/ML 0-0.06 52 Lipid Profile 04/13/2011 [facility] Triglyceride 80 mg/dL 40- 200 (Trig/Chol/HDL) [address] [place] [address] [phone] Cholesterol 201 mg/dL High Less Than 200 53 High Density Lipoprotein 62 mg/dL High 40-60 54 Cholesterol/HDL Ratio 3.24 AVERAGE 1-4.44 Low Density Lipoprotein 123 mg/dL High Less Than 100 55 Comp Metabolic Panel 04/13/2011 [facility] Sodium 139 mmol/L 135-145 [address] [place] [address] [phone] Potassium 4.2 mmol/L 3.5-5.0 Chloride 107 mmol/L [...] 133.0 > 60 58 Laboratory test 04/13/2011 [facility] TSH 1.71 MIU/ML 0.34- 5.60 finding [address] [place] [address] [phone] Laboratory test 04/08/2011 [facility] Cytology [address] [place] [address] ---- <[place] [address] NOTE> [phone] 1 Because ethnic data is not always [...] [address]: Macy Enriquez NP Acct: [id number] Unit: [id number] AGE: 62 Location: [facility] Re04/24/18 SEX: F Status: REG REF SPEC: [id number] MIKEY: 04/24/18-[address]: Macy Enriquez NP REQ: [id number] RECD: 04/24/18 STATUS: RES _ SOURCE: URINE SPDESC: ORDERED: Urine Culture QUERIES: Urine Source: Clean Catch Procedure Result Reported Site Urine Culture Preliminary 04/27/18- 814 ML Organism 1 STAPHYLOCOCCUS AUREUS [place] Count 10-25,000 (Moderate) CFU/ML Organism 2 NORMAL RONI [place] Count 50-75,000 (Many) CFU/ML * ML - Main Lab . END OF REPORT DEPARTMENT OF PATHOLOGY, [address] [place] [address] Surinder Hernandez M.D. Director [facility] # [id number] The high-risk HPV types detected by the assay include: 16, 18, 31, 33, 35, 39, 45, 51, 52, 56, 58, 59, 66, and 68. 9 SEE RESULT BELOW Name: COURTNEY ACUÑA : [address]: Macy Enriquez NP Acct: [id number] Unit: [id number] AGE: 61 Location: [facility] Re06/26/17 SEX: F Status: REG REF SPEC: [id number] MIKEY: 06/26/[address]: Macy Enriquez NP REQ: [id number] RECD: 06/26/17 STATUS: SOUT _ ORDERED: TP IMAGE ANAL, HPV/Thin Prep, HPV 16/18 GENE COMMENTS: [id number] FINAL DIAGNOSIS Negative for Intraepithelial lesion or [...] and 68. Signed (signature on file) [facility]ING [facility] 06/27 1358 This Pap test was evaluated with the assistance of the Automatic AgencyPrep Test Imaging System. Due to cytologic findings at the lab specialist microscope, comprehensive manual rescreening by a Urgent Care may be required. The Pap Smear is [...] years. END OF REPORT RUN DATE: 06/27/17 [facility] LAB LIVE PAGE 1 Patient: COURTNEY ACUÑA [id number] (Continued) * ML=Testing performed at Main Lab DEPARTMENT OF PATHOLOGY, [address] [place] [address] Surinder Hernandez M.D. Director [facility] # [id number] 10 Because ethnic data is not always [...] [address]: Dakota Gomes MD Acct: [id number] Unit: [id number] AGE: 60 Location: [facility] Re06/22/16 SEX: F Status: DEP REF SPEC: [id number] MIKEY: 06/22/16- [facility] DR: Dakota Gomes MD REQ: [id number] RECD: 06/22/161543 STATUS: AMANDA MCMAHAN DR: Macy Enriquez SERVICE ADVISOR _ ORDERED: LEVEL IV FINAL DIAGNOSIS Colon, [...] performed at Main Lab DEPARTMENT OF PATHOLOGY, [address] [place] [address] Surinder Hernandez M.D. Director [facility] # [id number] 16 Desirable <150 Borderline high 150-199 High [...] <15 (or dialysis) 27 RUN DATE: 05/05/14 [facility] LAB LIVE PAGE 1 RUN TIME: 1042 [address] [place], [place] [address] Specimen Inquiry Name: COURTNEY ACUÑA : [address]: Macy Enriquez SERVICE ADVISOR Acct: [id number] Unit: [id number] AGE: 58 Location: [facility] Re05/02/14 SEX: F Status: REG REF SPEC: [id number] MIKEY: 05/02/14-[address] [facility] DR: Macy Enriquez SERVICE ADVISOR REQ: [id number] RECD: 05/02/14 STATUS: SOUT _ ORDERED: IMAGE ANALYSIS, HPV/Thin Prep FINAL DIAGNOSIS Negative for Intraepithelial lesion or Malignancy COMMENTS: Specimen sent to [facility] [email or web address] in [place], [place] on 05/05/14 by [email or web address] at 1030. Results will be reported separately. [...] was evaluated with the assistance of the Automatic AgencyPrep Test Imaging System. Due to cytologic findings at the lab specialist microscope, comprehensive manual rescreening by a Urgent Care may be required. The Pap Smear is [...] performed at Main Lab DEPARTMENT OF PATHOLOGY, [facility] [employer] [place] [address] Surinder Hernandez M.D. Director [facility] # [id number] RESULT: Ectocervical/Endocervical 29 The following Other High Risk HPV types were not detected: 31, 33, 35, 39, 45, 51, 52, 56, 58, 59, 66, and 68 Test Performed by: [place] [address] Professor Of Mathematics: Juan Raomn Fisher III, M.D. 30 RUN DATE: 03/24/14 [facility] LAB LIVE PAGE 1 RUN TIME: [address] [place] [address] Specimen Inquiry Name: LUBACOURTNEY ACOSTA : [address]: Macy Enriquez NP Acct: [id number] Unit: [id number] AGE: 58 Location: [facility] Re03/19/14 SEX: F Status: REG REF SPEC: [id number] MIKEY: 03/19/14-[address] [facility] DR: Macy Enriquez NP REQ: [id number] RECD: 03/19/145 STATUS: COMP _ SOURCE: URINE SPDESC: ORDERED: Urine Culture QUERIES: Medent Number [id number] Procedure Result Verified Site Urine Culture Final 03/24/14- 1524 ML Organism 1 KLEBSIELLA OXYTOCA [place] Count 10-25,000 (Moderate) CFU/ML Organism 2 ENTEROBACTER CLOACAE COMPLEX [place] Count 10-25,000 (Moderate) CFU/ML 1. KLEBSIELLA OXYTOCA [...] performed at Main Lab DEPARTMENT OF PATHOLOGY, [facility] [employer] [place], [place] [address] Surinder Hernandez M.D. Director [facility] # [id number] RUN DATE: 03/24/14 [facility] LAB LIVE PAGE 2 RUN TIME: 1524 [facility] [employer] [place], [place] [address] Specimen Inquiry Patient: COURTNEY ACUÑA [id number] (Continued) Specimen: [id number] Collected: 03/19/14-1046 Received: 03/19/14 (Continued) Procedure Result Verified Site Urine Culture Final (continued) 03/24/14- 1523 2. ENTEROBACTER CLOACAE COMPLEX M.I.C. RX --------- [...] performed at Main Lab DEPARTMENT OF PATHOLOGY, [address] [place] [address] Surinder Hernandez M.D. Director [facility] # [id number] 31 Desirable <150 Borderline high 150-199 High [...] 12 HOUR Please get this done the of May Because ethnic data is not always [...] than 189 mg/dL 41 RUN DATE: 05/27/12 [facility] LAB LIVE PAGE 1 RUN TIME: 9803 [address] [place], [place] [address] Specimen Inquiry Name: COURTNEY ACUÑA : [address]: Macy Elder Acct: [id number] Unit: [id number] AGE: 56 Location: [facility] Re05/25/12 SEX: F Status: REG REF SPEC: [id number] MIKEY: 05/25/12-[address]: Macy Elder REQ: [id number] RECD: 05/25/12 STATUS: COMP OTHR DR: _ SOURCE: URINE SPDESC: ORDERED: Urine Culture QUERIES: Medent Number [id number] Urine Source: Random Procedure Result Verified Site Urine Culture Final 05/27/12- 1612 ML Organism 1 NORMAL RONI [place] Count 1-10,000 (Few) CFU/ML END OF REPORT * ML=Testing performed at Main Lab DEPARTMENT OF PATHOLOGY, [facility] [employer] [place], [place] [address] Surinder Hernandez M.D. Director [facility] Permit #[id number] 42 RUN DATE: 05/22/12 [facility] LAB LIVE PAGE 1 RUN TIME: 9461 [facility] [employer] [place], [place] [address] Specimen Inquiry Name: COURTNEY CAUÑA : [address]: Macy Elder Acct: [id number] Unit: [id number] AGE: 56 Location: [facility] Re05/18/12 SEX: F Status: REG REF SPEC : [id number] RECD: 05/21/12 [facility] NUM: [id number] MIKEY: 05/18/12- [facility] DR: Macy Elder ENTERED: 05/21/12 SP TYPE: SURGICAL P MARJ DR: ORDERED: LEVEL III FINAL DIAGNOSIS Sebaceous [...] performed at Main Lab DEPARTMENT OF PATHOLOGY, [address] [place] [address] Surinder Hernandez M.D. Director [facility] Permit #[id number] CHOLESTEROL INTERPRETATION: Desirable: Less than 200 [...] has been shown to interfere with the [place] method for measuring total bilirubin. Samples from [...] 0.06 ng/mL NOT SUPPORTIVE OF DIAGNOSIS OF [place] 0.06 - 0.50 ng/ml INDETERMINATE: SUGGEST SERIAL STUDIES IF CLINICALLY INDICATED. Greater than 0.5 ng/mL CONSISTENT WITH DIAGNOSIS OF [place] . 53 CHOLESTEROL INTERPRETATION: Desirable: Less than [...] has been shown to interfere with the [place] method for measuring total bilirubin. Samples from [...] (or dialysis) 58 ---- RUN DATE: 04/11/11 [facility] NMI LIVE PAGE 1 RUN TIME: 1527 Specimen Inquiry RUN USER: INTERFACE -- Name: COURTNEY ACUÑA Accadela#: [id number] Status: REG REF Re04/08/11 Age/Sex: 55/F Unit#: [id number] Location: [facility] : 53 -- Specimen: [id number] SOUT Spec Date: 04/08/[address]: Macy ORTIZP Spec Type: CYTOLOGY Received: [...] was evaluated with the assistance of the Automatic AgencyPrep Pap Test Imaging System. The Pap Smear [...] 15 24 -- -- DEPARTMENT OF PATHOLOGY, [address] [place] [address] [facility] Permit #[id number] Surinder Hernandez M.D. Director Sangeeta Mendenhall M.D. Log Raft Worker Dir susi -- Procedures Date Code Description Status 08/02/201802218 Inject Tendon Sheath Or Ligament Aponeurosis Eg Plantar Completed Fascia 05/09/2018 80014 EKG Tracing & Interpretation Completed 11/29/2017 35741 Inject Tendon Sheath Or Ligament Aponeurosis Eg Plantar Completed Fascia 07/25/2017 [id number] Mammogram Completed 03/08/201799101 Inject Tendon Sheath Or Ligament Aponeurosis Eg Plantar Completed Fascia 07/20/201609204 Inject Tendon Sheath Or Ligament Aponeurosis Eg Plantar Completed Fascia 06/22/2016 01043745 Colonoscopy Completed 06/10/2016 [id number] Mammogram Completed 02/25/2016 55661 EKG Tracing & Interpretation Completed 06/05/2015 89895048 Mammogram Completed 02/18/2015 85056 Treadmill Interp/Report Only Completed 02/18/2015 60743 Stress Test Supervsn W/Out I/R Completed 02/18/2015 94278 Stress Test Completed 02/18/2015 68488 Myocardial Perfusion Imaging Tomographic (Spect) Completed Multiple Studies 12/18/2014 06964 EKG Tracing & Interpretation Completed 06/25/2014 21309 EKG Tracing & Interpretation Completed 05/28/2014 70354 Inject Tendon Sheath Or Ligament Aponeurosis Eg Plantar Completed Fascia 05/09/2014 07859005 Mammogram Completed 12/19/2013 73520 EKG Tracing & Interpretation Completed 08/01/2013 28175 open tx of metacarpal fx,single inclds internal Completed fixation when per 08/01/2013 59070 open tx of metacarpal fx,single inclds internal Completed fixation when per 08/01/2013 14590 Trigger Finger Release Incision / Tendon Sheath Completed Incision 08/01/2013 52080 Trigger Finger Release Incision / Tendon Sheath Completed Incision 05/16/2013 67011 Holter Monitoring 24 HR New Completed 05/14/2013 17151 Stress Test Completed 05/14/2013 01390 Myocardial Perfusion Imaging Tomographic (Spect) Completed Multiple Studies 05/08/2013 94010 EEG Recording Awake & Drowsy Completed 05/08/2013 40213590 Mammogram Completed 05/02/2013 56865 EKG Tracing & Interpretation Completed 04/19/2013 42593 EKG Tracing & Interpretation Completed 01/23/2013 48048 Inject Tendon Sheath Or Ligament Aponeurosis Eg Plantar Completed Fascia 01/09/2013 21712 Inject Tendon Sheath Or Ligament Aponeurosis Eg Plantar Completed Fascia 01/09/2013 03043 Inject Tendon Sheath Or Ligament Aponeurosis Eg Plantar Completed Fascia 01/09/2013 07807 Inject Tendon Sheath Or Ligament Aponeurosis Eg Plantar Completed Fascia 05/18/2012 94999 Excise Benign lesion 1.1-2CM Trunk/Arm/Leg Completed 05/18/2012 72266 excision, soft tissue of back, or flank Completed 04/27/2012 87054905 Mammogram Completed 11/08/2011 08266 Holter Monitor Review (24 hr) review & interp only Completed 11/02/2011 46835 EKG Tracing & Interpretation Completed 04/15/2011 10928162 Mammogram Completed 01/14/2010 02322618 Mammogram Completed 01/06/2010 08026 Biopsy Cervix, Single Or Multiple, Or Local Excision Of Completed Lesion 10/27/2008 66414 Holter Monitor Review (24 hr) review & interp only Completed 12/18/2007 02096 EKG Tracing & Interpretation Completed 12/18/2007 66465 EKG Tracing & Interpretation Completed 12/05/2006 12632 EKG Tracing & Interpretation Completed Encounters Type Date Location Provider Dx Diagnosis Office Visit 07/31/2018 [facility] Macy Enriquez, Z00.00 Encntr for 10:20a Medicine - N.P. general adult [place] medical exam w/o abnormal findings Z12.31 Encntr screen mammogram for malignant neoplasm of breast E78.00 Pure hypercholesterolemia, unspecified I49.3 Ventricular premature depolarization K21.9 Gastro-esophageal reflux disease without esophagitis Z85.51 Personal history of malignant neoplasm of bladder F41.9 Anxiety disorder, unspecified Office Visit 07/10/2018 [facility] Internal Isabel Darwin, L29.2 Pruritus vulvae 4:30p Medicine - MD [place] Office Visit 05/09/2018 [facility] Yoel Delgado I49.3 Ventricular 4:00p Cardiology Of [place], DO premature [facility] FACC depolarization Office Visit 09/04/2017 [facility] Internal Oliverio Solomon, M25.511 Pain in right 4:00p 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 general adult [place] medical exam w abnormal findings Z12.31 Encntr [...] middle C.M.A. finger Office Visit 05/27/2016 1:40p [facility] Internal Macy Enriquez, Z00.00 Encntr for Medicine - N.P. general adult [place] medical exam w/o abnormal findings Z12.31 Encntr screen mammogram for malignant neoplasm of breast E78.00 Pure hypercholesterolemia, unspecified Z85.51 Personal history of malignant neoplasm of bladder R00.2 Palpitations E55.9 Vitamin D deficiency, unspecified Office Visit 02/25/2016 2:40p [facility] Brent Phillips, I47.2 Ventricular Of [place] AT [facility] M.DMichael, FACC, tachycardia FSCAI Office Visit 05/22/2015 3:20p [facility] Internal Macy Enriqeuz, Z00.00 Encntr for Medicine - N.P. general adult [place] medical exam w/o abnormal findings Z12.39 Encounter for oth screening for malignant neoplasm of breast E78.2 Mixed hyperlipidemia C67.8 Malignant neoplasm of overlapping sites of bladder I49.3 Ventricular premature depolarization Office Visit 03/12/2015 2:40p [facility] Brent Phillips, 785.1 Palpitations Of [place] AT [facility], FSCAI 427.1 Paroxysmal Ventricular Tachycardia Office Visit 01/29/2015 2:40p [facility] Brent Phillips, 785.1 Palpitations Of [place] AT [facility], [facility], FSCAI 427.69 Premature Beats Other Office Visit 12/18/2014 2:40p [facility] Brent Phillips, 427.69 Premature Beats Of [facility] AT [facility], [facility], Other FSCAI 785.1 Palpitations Office Visit 06/25/2014 9:20a [facility] Internal Macy Enriquez, 427.69 Premature Beats Medicine - N.P. Other [place] 300.00 Anxiety State Unspec Office Visit 05/28/2014 [facility] Ayesha 727.03 Trigger Finger 8:30a Services Of Sharri Lynn Acquired C.M.A. Office Visit 05/16/2014 [facility] Misha Myers, 726.72 Tendinitis 1:30p Services Of Sharri Tibialis C.M.A. Office Visit 05/02/2014 [facility] Internal Macy Enriquez, V70.0 Examination 3:20p Medicine - N.P. [facility] Medical [place] Routine AT Health Care Facility V72.31 Routine Management Accountant Examination V76.10 Screening For Malignant Neoplasm Breast 272.4 Hyperlipidemia Other Unspec 188.8 Malignant Neoplasm Bladder Other Spec Sites Office Visit 04/11/2014 1:00p [facility] Misha 726.72 Tendinitis Services Of Sharri Myers Tibialis C.M.A. 726.71 Bursitis Or Tendinitis Achilles Office Visit 03/19/2014 10:40a [facility] Internal Macy Enriquez, 599.0 UTI Urinary Medicine - N.P. Tract Infection [place] Site Not Spec 729.5 Pain In Limb Office Visit 12/19/2013 3:00p [facility] Brent Phillips, 427.69 Premature Beats Of [place] AT [facility], [facility], Other FSCAI 272.4 Hyperlipidemia Other Unspec Office Visit 09/25/2013 1:00p [facility] S. 780.4 Dizziness & Services Of Jaswinder Mcadams M.D. Giddiness 794.02 Electroencephalogram Abnormal Brain & Central Nervous Sys Office Visit 05/30/2013 9:30a [facility] Bretn Phillips, 427.69 Premature Beats Of Jaswinder Harrell, FAC, Other FSCAI 780.4 Dizziness & Giddiness Office Visit 05/22/2013 [facility] Ayesha 727.03 Trigger Finger 11:15a Services Of Sharri Lynn Acquired C.M.A. Office Visit 05/02/2013 [place] Brent Phillips M.D., 780.4 Dizziness & 2:15p Cardiology Of [facility], FSCAI Giddiness [facility] 427.69 Premature Beats Other Office Visit 04/19/2013 3:00p [facility] Internal Macy Enriquez V70.0 Examination Medicine - N.P. [facility] Routine AT Health Care Facility V72.31 Routine Management Accountant Examination V76.10 Screening For Malignant Neoplasm Breast 272.4 Hyperlipidemia Other Unspec 188.8 Malignant Neoplasm Bladder Other Spec Sites 780.4 Dizziness & Giddiness Office Visit 01/23/2013 [facility] Ayesha 727.03 Trigger Finger 11:00a Services Of Sharri Lynn Acquired C.M.A. Office Visit 01/09/2013 [facility] Ayes[facility] 727.03 Trigger Finger 8:30a Services Of Sharri Lynn Acquired C.M.A. Office Visit 05/25/2012 [facility] Macy Enriquez, N.P. 599.0 UTI Urinary 2:20p Medicine - Tract Infection [place] Site Not Spec V58.32 Encounter For Removal Of Sutures Office Visit 05/16/2012 10:00a [facility] Internal Macy Enriquez, 706.2 Sebaceous Cyst Medicine - N.P. [place] Office Visit 04/13/2012 3:00p [facility] Macy Enriquez V70.0 Examination Medicine - N.P. [facility] Routine AT Health Care Facility V72.31 Routine Management Accountant Examination V76.10 Screening For Malignant Neoplasm Breast 272.4 Hyperlipidemia Other Unspec 188.8 Malignant Neoplasm Bladder Other Spec Sites 727.03 Trigger Finger Acquired Office Visit 11/09/2011 10:40a [facility] Laura Gray, 785.1 Palpitations Medicine - M.D., FACP [place] Office Visit 11/02/2011 10:40a [facility] Laura Gray, 785.1 Palpitations Medicine - M.D., FACP [place] Office Visit 06/07/2011 4:20p DO Not Use Macy Varn, 681.02 Onychia & [facility] N.P. Paronychia Finger Office Visit 04/08/2011 3:00p DO Not Use Macy Varn, V70.0 Examination [facility] N.P. General Medical Routine AT Health Care Facility V72.31 Routine Management Accountant Examination 272.4 Hyperlipidemia Other Unspec 188.8 Malignant Neoplasm Bladder Other Spec Sites Office Visit 02/16/2011 DO Not Use Macy Varn, 719.41 Pain Joint 2:00p [facility] N.P. Shoulder Region Office Visit 12/25/2009 DO Not Use Macy Varn, V72.31 Routine Management Accountant 3:00p [facility] N.P. Examination 622.7 Mucous Polyp Cervix Office 10/31/2008 DO Not Use Macy 272.0 Hypercholesterolemia Visit 2:30p [facility] Varn, N.P. Pure Office 10/17/2008 DO Not Use Laura Gary, 785.1 Palpitations Visit 2:15p [facility] M.D., FACP 786.05 Shortness Of Breath 300.00 Anxiety State Unspec Office Visit 04/02/2008 DO Not Use Macy 466.0 Bronchitis Acute 9:00a [facility] Varn, N.P. Office Visit 12/18/2007 DO Not Use Macy V72.31 Routine Management Accountant 2:30p [facility] Varn, N.P. Examination Office Visit 01/12/2007 DO Not Use Macy 272.4 Hyperlipidemia 2:30p [facility] Varn, N.P. Other Unspec 794.8 Liver Study Abnormal Office Visit 12/05/2006 DO Not Use Macy Varn, V72.31 Routine Management Accountant 2:45p [facility] N.P. Examination 272.0 Hypercholesterolemia Pure V06.1 Wpdentxujt-Vgcyttx-Ezhrnruy Combined (DTaP) Plan of Treatment Future Appointment(s):08/02/2019 2:20 pm - Macy Enriquez N.P. at [facility] Internal Medicine - Pnexwohuh26/02/2019 - Isabel Granados, MDR05 CoughNew Medication: Guaifenesin-Codeine 100-10 mg/5ML - take 5ml every 6 hours as neededFollow up: take cough syrup with [id number] Sprain of ribs, subsequent encounterFollow up:take ibuprofen 600mg every 6 hours; with food ok to take tramadol along with it call if not better by monday
[2018-08-18 21:23] VITALS: BP 158/70
--- NOTE | 2018-08-18 21:31 | UC ---
Respiratory Complaint HPI - HPI Summary HPI Summary: Patient is a 62-year-old female with severe coughing for about 10 days. She thinks that she sneezed or coughed hard and developed right posterior rib pain. Been seen here twice since the onset of her symptoms and was seen 2 days ago by her primary care doctor. The cough persists as does the pain. Pain worsens with deep breath or cough. The pain worsens with movement of her right arm and rolling onto her right side in bed. She denies any shortness of breath. Her cough is nonproductive. She is currently taking tramadol for pain as well as 600 mg of Motrin. Her last dose of Motrin was 2-1/2 hours ago. - History of Current Complaint Chief Complaint: UCBackPain Stated Complaint: BACK AND SIDE PAIN, AND COUGH Time Seen by Provider: 08/18/18 21:18 Hx Obtained From: Patient Hx Last Menstrual Period: post menopause Onset/Duration: Sudden Onset, Lasting Days Timing: Constant Severity Initially: Moderate Severity Currently: Severe Pain Intensity: 8 Pain Scale Used: 0-10 Numeric Character: Cough: Nonproductive Aggravating Factors: Deep Breaths Alleviating Factors: Nothing Associated Signs And Symptoms: Positive: Pleuritic Chest Pain. Negative: Fever , Chills, Wheezing, Hemoptysis, Dizziness, Calf Pain, Calf Swelling, Edema, URI , Nasal Congestion, Hoarseness, Sinus Discomfort - Allergies/Home Medications Allergies/Adverse Reactions: Allergies Allergy/AdvReac Type Severity Reaction Status Date / Time No Known Allergies Allergy Verified 08/13/18 13:46 Home Medications: Home Medications GuaiFENesin DM* [Robitussin DM*] 08/18/18 [History] Ibuprofen TAB* [Motrin TAB* 600 MG] 08/18/18 [History] PMH/Surg Hx/FS Hx/Imm Hx Previously Healthy: Yes Cardiovascular History: Hypertension - Surgical History Surgical History: Yes Surgery Procedure, Year, and Place: CARPAL TUNNEL AND TRIGGER FINGER SURGERIES; . PINS AND PLATES IN WRIST (REMOVED); - Family History Known Family History: Positive: Unknown - Social History Alcohol Use: None Substance Use Type: None Smoking Status (MU): Former Smoker When Did the Patient Quit Smoking/Using Tobacco: 40 years Review of Systems All Other Systems Reviewed And Are Negative: Yes Constitutional: Positive: Negative Skin: Positive: Negative Eyes: Positive: Negative ENT: Positive: Negative Respiratory: Positive: Cough Cardiovascular: Positive: Negative Gastrointestinal: Positive: Negative Genitourinary: Positive: Negative Motor: Positive: Negative Neurovascular: Positive: Negative Musculoskeletal: Positive: Negative Neurological: Positive: Negative Psychological: Positive: Negative Physical Exam Triage Information Reviewed: Yes Appearance: Well-Nourished, Pain Distress Vital Signs: Initial Vital Signs Temp 96.7 F 08/18/18 21:14 Pulse 80 08/18/18 21:14 Resp 18 08/18/18 21:14 BP 158/70 08/18/18 21:14 Pulse Ox 94 08/18/18 21:14 Eyes: Positive: Conjunctiva Clear ENT: Positive: Hearing grossly normal. Negative: Nasal congestion, Nasal drainage, Tonsillar swelling, Tonsillar exudate, Muffled voice, Hoarse voice Neck: Positive: Supple, Nontender, No Lymphadenopathy Respiratory: Positive: Lungs clear, No respiratory distress, No accessory muscle use. Negative: Chest non-tender Cardiovascular: Positive: RRR, No Murmur Musculoskeletal: Positive: ROM Intact, No Edema Neurological: Positive: Alert Psychological Exam: Normal Skin Exam: Normal Images Front/Back of Body, Lg ([place]): 1 - tender/pain with rib springing UC Diagnostic Evaluation - Laboratory O2 Sat by Pulse Oximetry: 94 - normal/not hypoxic - Radiology Radiology Interpretation Completed By: ED Physician Summary of Radiographic Findings: no infiltrate/no ptx/ displaced rib fx 5th (R) Respiratory Course/Dx - Differential Dx/Diagnosis Provider Diagnosis: Fracture of rib of right side Discharge - Sign-Out/Discharge Documenting (check all that apply): Patient Departure All imaging exams completed and their final reports reviewed: No - Discharge Plan Condition: Stable Disposition: HOME Patient Education Materials: Rib Fracture (ED) Referrals: Macy Enriquez NP [Primary Care Provider] - 4 Days Additional Instructions: stop tramadol stop robitussin with codeine offical xr reading pending - Billing Disposition and Condition Condition: STABLE Disposition: Home
[2018-08-18] MEDS ORDERED: HYDROcodone/ACETAMIN 5-325 MG* 1 TAB PO ONE ×2 (21:57→22:04)
--- NOTE | 2018-08-19 15:41 | ED ---
Progress - Progress Note Progress Note: Pt called requesting out of work note for this coming week. Reviewed CXR - reveals 1.9cm density that could represent minimally displaced rib fx - radiology recommends if sx persist, CT imaging should be performed. Spoke w/ pt to update this finding, explained importance of f/u this week and relayed findings of demineralized bone as well - may benefit from DEXA scan, etc. She agrees to relay results and recommendations to PCP tomorrow. Will most likely send her brother in to to retrieve work note which I will write for 3 days but she understands she needs to follow-up with PCP for further out of work notes. She is also aware if she feels worse to go to ED. Course/Dx - Diagnoses Provider Diagnoses: Fracture of rib of right side Discharge - Sign-Out/Discharge Documenting (check all that apply): Post-Discharge Follow Up All imaging exams completed and their final reports reviewed: No - Discharge Plan Condition: Stable Disposition: HOME Prescriptions: HYDROcodone/ACETAMIN 5-325 MG* [Amazonia 5-325 TAB*] 1 tab PO Q6H PRN #15 tab MDD 4 PRN Reason: Pain - Severe Patient Education Materials: Rib Fracture (ED) Referrals: Macy Enriquez NP [Primary Care Provider] - 4 Days Additional Instructions: stop tramadol stop robitussin with codeine offical xr reading pending - Billing Disposition and Condition Condition: STABLE Disposition: Home
== END 2018-08-18 22:20 | disposition home or self-care (01) ==
LOC: UCEAST 21:07
DX: S22.31XA Fracture of one rib, right side, initial encounter for closed fracture (principal); I10 Essential (primary) hypertension; Z87.891 Personal history of nicotine dependence; X58.XXXA Exposure to other specified factors, initial encounter; Y92.9 Unspecified place or not applicable
CPT/HCPCS: 71046; 99212; G0463

== ENCOUNTER 2019-01-11 15:17 | Emergency (ER) | payer BC ==
--- OUTSIDE RECORDS SUMMARY | 2019-01-11 15:22 | XMS REPORT | Continuity of Care Document ---
:1955 External Reference #:[id number] Author Name Aisha Shaw Care Team Providers Name Role Phone Zohra Klein MD Primary Care Physician Unavailable Payers Date Identification Numbers Payment Provider Subscriber Policy Number: [id number] BS Facets Courtney Acuña PayID: [id number] [address] [address] [place] [address] Advance Directives Type Date Description Status Comment Other Directive 06/27/2017 Health Care Proxy Current and Verified Problems Active Problems Provider Date Hyperlipidemia Macy Enriquez N.P. Onset: 04/08/2011 Paroxysmal ventricular tachycardia Brent Phillips M.D., [facility] Onset: Malignant tumor of urinary bladder Macy Enriquez N.PMichael Onset: 04/08/2011 Premature beats Brent Phillips M.D., [facility] Onset: 12/19/2013 Palpitations Brent Phillips M.D., [facility] Onset: 12/18/2014 Family History Date Family Member(s) Observation Comments General Heart Disease : (age 58 Father due to [place] Smoker Years) Mother Heart Valve Disease Aortic Valve Replacement, Hyperlipidemia, ? 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 ETOH Use Denies alcohol use Tobacco Use Start: Unknown End: Patient is a former smoker Unknown Recreational Drug Use Never Used Drugs Smoking Status Reviewed: 12/20/18 Patient is a former smoker Exercise Type/Frequency Exercises sporadically Allergies, Adverse Reactions, Alerts Description No Known Drug Allergies Medications Active Medications SIG Qnty Indications Ordering Provider Date Guaifenesin-Codeine take 5ml every 6 118ml R05 Isabel Granados MD 08/15/2018 hours as needed 100-10mg/5ML Solution Nystatin Apply thin layer 15gm L29.2 Isabel Granados MD 07/10/2018 on affected area [id number]/GM twice a day Ointment Omeprazole 1 by mouth every 90caps K21.9 Macy Enriquez, 08/15/[address] C[address] Paroxetine HCL 1 by mouth every 30tabs Macy Enriquez, 09/28/2016 20mg day N.P. Tablets Metoprolol Succinate 1 by mouth twice 60tabs I49.3 Macy Enriquez, 2014 ER a day N.P. 25mg Tablets ER 24HR Crestor 1 by mouth every 90tabs Macy Enriquez, 04/16/2013 10mg Tablets day N.P. Advil PM 1 po qhs Unknown 200-25mg Capsules Vitamin D-3 1 by mouth every Unknown 1000Unit day Capsules Hydrocodone 1 by mouth 4 42tabs Zohra Cotton, Bitartrate/Acetamino times a day as M.D. phen needed 5-325mg Tablets History Medications Bactrim DS one by mouth twice 14tabs Macy Enriquez, 08/21/2018 - 800-160mg Tablets a day for 7 days N.P. 08/28/2018 Tramadol HCL 1 tablet three 30tabs Macy Enriquez, 08/13/2018 - 50mg Tablets times daily as N.P. 08/19/2018 needed Zithromax Z-Romel Azithromycin Tab* 1tabs Unknown 08/11/2018 - 250mg Tablets 08/17/2018 Bactrim DS one by mouth twice 20tabs Macy Enriquez, 04/30/2018 - 800-160mg Tablets a day for 10 days N.P. 05/10/2018 Bactrim DS one by mouth twice 14tabs Macy Enriquez, 04/23/2018 - 800-160mg Tablets a day for 7 days N.P. 04/30/2018 Fluconazole one by mouth december 2tabs Macy Enriquez, 02/05/2018 - 150mg Tablets repeat in 3 days N.P. 07/31/2018 as needed Methylprednisolone as directed on QS M25.51 Oliverio Solomon NP 09/04/2017 - 4mg TBPK package 1 09/09/2017 Ranitidine HCL take one tablet by 60tabs K21.9 Macy Enriquez, 06/26/2017 - 150mg Tablets mouth twice a day N.P. 08/15/2017 Fluconazole one by mouth december 2tabs N77.1 Macy Enriquez, 06/26/2017 - 150mg Tablets repeat in 3 days N.P. 07/02/2017 as needed Lotrisone apply externally 15gm N77.1 Macy Stroudyesenia, 06/26/2017 - 1-0.05% Cream bid-tid N.P. 07/10/2017 Vitamin D3 one by mouth once 8caps Macy Enriquez, 05/15/2016 - [id number] Capsules weekly N.P. 07/14/2016 Metoprolol Succinate ER 1 by mouth every 30tabs 427.69 Brent Phillips, 2014 - 25mg day M.Kade, [facility], 01/29/2015 Tablets ER 24HR FSCAI Escitalopram Oxalate 1 by mouth every 30tabs F41.9 Macy Stroudyesenia, 2013 - 10mg day N.P. 09/28/2016 Tablets Ciprofloxacin HCL one by mouth twice 14tabs 599.0 Macy Enriquez, 2013 - 250mg a day for 7 days N.P. 03/26/2014 Tablets [place]mar 1-2 po q4-6h prn 40tabs Ayesha 07/17/2013 - 5-325mg Tablets post op pain Leah, 08/28/2013 Sharri Cipro one by nouth twice 14tabs 599.0 Macy Stroudyesenia, 05/25/2012 - 250mg Tablets daily for 7 days N.P. 06/01/2012 Cephalexin one three times 21tabs 706.2 Macy Stroudyesenia, 05/18/2012 - 500mg Tablets daily for 7 days N.P. 05/25/2012 Cephalexin one three times 21tabs 681.02 Laura Gray, 06/07/2011 - 500mg Tablets daily for 7 days M.D., FACP 06/14/2011 Tylenol PM 2 tablets at Laura Gray, 04/08/2011 - Tablets bedtime M.D., FACP 04/13/2012 Herbal [place] 1 qd Laura Gray, 04/08/2011 - Sharri, FACP 11/02/2011 Crestor Take 1 Tablet By 30tabs [facility] 02/07/2011 - 5mg Tablets Mouth Once Daily Sharri Klein 04/16/2013 Medications Administered in Office Medication SIG Qnty Indications Ordering Provider Date Depomedrol 40MG Ninfa Ernandez M.D. 12/20/2018 Injection Depomedrol 40MG Ninfa Ernandez M.D. 08/02/2018 Injection Depomedrol 40MG Ninfa Ernandez M.D. 11/29/2017 Injection Depomedrol 40MG Trisha Munoz RPA-C 03/08/2017 Injection Depomedrol 40MG Trisha Munoz RPA-C 07/20/2016 Injection Technetium TC 99M Zackery Burrell M.D., 02/18/2015 Tetrofosmin, Per Unit Dose [facility] Up To 40 Millicuries Injection Technetium TC 99M Stephen Garibay M.D. 02/18/2015 Tetrofosmin, Per Unit Dose Up To 40 Millicuries Injection Celestone 3 mg and 3mg Ayesha Snowden-Hasmukh, 05/28/2014 Injection M.D. Technetium TC 99M Brent Phillips M.D., [facility], 05/14/2013 Tetrofosmin, Per Unit Dose [facility] Up To 40 Millicuries Injection Celestone 3 mg and 3mg Ayesha Snowden-Young, 01/23/2013 Injection M.D. Celestone 3 mg and 3mg Ayesha Snowden-Young, 01/23/2013 Injection M.D. Celestone 3 mg and 3mg Ayesha Snowden-Young, 01/09/2013 Injection M.D. Celestone 3 mg and 3mg Ayesha Snowden-Young, 01/09/2013 Injection M.D. Celestone 3 mg and 3mg Ayesha Snowden-Young, 01/09/2013 Injection M.D. Celestone 3 mg and 3mg Ayesha Leah, 01/09/2013 Injection M.DMichael Immunizations CPT Code Status Date Vaccine Lot # [id number] Given 05/05/2018 Influenza Virus Vaccine, Quadrivalent, Split, Preservative Free 10176 Given 04/10/2017 Pneumonia Vaccine 75024 Given 04/10/2017 Influenza Virus Vaccine, Quadrivalent, Split, Preservative Free 29398 Given 05/05/2016 Tdap - Tetanus/Diptheria/Acellular Pertussis Q2035 Given 04/20/2016 Afluria Vaccine 14763 Given 05/11/2015 Zoster (Zostavax) Q2035 Given 04/27/2015 Afluria Vaccine 56798 Given 04/27/2015 Pneumococcal Conjugate Vaccine 13 Valent For Intramuscular Use 78754 Given 04/22/2014 Influenza Virus 3Yrs & Over 40927 Given 04/22/2014 Influenza Virus 3Yrs & Over Q2035 Given 04/17/2013 Afluria Vaccine Q2038 Given 04/19/2012 Fluzone Vaccine 63922 Given 04/28/2011 Influenza Virus 3Yrs & Over 65604 Given 05/28/2007 Influenza Virus 3Yrs & Over 52060 Given 12/05/2006 Tdap - Tetanus/Diptheria/Acellular Pertussis Vital Signs Date Vital Result Comment 12/20/2018 3:28pm Height 56 inches 4'8" Weight 145.00 lb Heart Rate 60 /min BP Systolic 122 mmHg BP Diastolic 84 mmHg Respiratory Rate 16 /min Pain Level 3 BMI (Body Mass Index) 32.5 kg/m2 08/20/2018 1:44pm Height 56 inches 4'8" Weight 150.00 lb Heart Rate 67 /min BP Systolic Sitting 135 mmHg BP Diastolic Sitting 87 mmHg Body Temperature 98.6 F O2 % BldC Oximetry 97 % BMI (Body Mass Index) 33.6 kg/m2 08/15/2018 10:55am Height 56 inches 4'8" Weight [...] inches 4'8.50" Weight 137.00 lb Heart Rate 23638 /min BP Systolic Sitting 112 mmHg LA [...] Date Facility Test Result H/L Range Note Laboratory test 08/22/2018 [facility] Blood Urea 20 mg/dL N 6- [address] [place] [address] [phone] Creatinine 08/22/2018 [facility] Creatinine 0.75 mg/dL N 0.51- 0.[address] [place] [address] [phone] Egfr Non- 78.0 >60 Egfr 94.4 >60 1 Urine Culture And 08/22/2018 [facility] Urine Culture SEE RESULT [address] [place] [address] [phone] Comp Metabolic 07/21/2018 [facility] Sodium 140 mmol/L N 135- [address] 5 [place] [address] [phone] Potassium 4.4 mmol/L N 3.5-5.0 Chloride 103 [...] Egfr Non- 78.0 >60 Egfr 94.4 >60 3 Laboratory test 07/21/2018 [facility] TSH (Thyroid 2.46 mcIU/mL N 0.34-5.[address] Stim Horm) [place] [address] [phone] Vitamin D Total 25(Oh) 28.4 ng/mL N 20-50 Lipid Profile 07/21/2018 [facility] Triglycerides 207 mg/dL 4 (Trig/Chol/HDL) [address] [place] [address] [phone] Cholesterol 215 mg/dL 5 HDL Cholesterol 49.4 mg/dL 6 LDL Cholesterol 124 mg/dL 7 Urine Culture And 04/24/2018 [facility] Urine SEE RESULT [address] [place] [address] [phone] Laboratory test 06/26/2017 [facility] HPV Rna Negative Negative 9, [address] Ww/[place] [address] Genotype [phone] Cytology SEE RESULT BELOW 11 Comp Metabolic Panel 06/09/2017 [facility] Sodium 135 mmol/L N 133-[address] [place] [address] [phone] Potassium 4.2 mmol/L N 3.5-5.0 Chloride 101 [...] 78.3 N >60 Egfr 100.7 N >60 12 Lipid Profile 06/09/2017 [facility] Triglycerides 190 mg/dL N 13 (Trig/Chol/HDL) [address] [place] [address] [phone] Cholesterol 209 mg/dL N 14 HDL Cholesterol 50.7 mg/dL N 15 LDL Cholesterol 120 mg/dL N 16 Laboratory test 07/05/2016 [facility] Vitamin D Total 30.7 ng/ mL N 30-[address] 25(Oh) [place] [address] [phone] Laboratory test 06/22/2016 [facility] Surgical Pathology SEE RESULT [address] [place] [address] [phone] Lipid Profile 05/11/2016 [facility] Triglycerides 188 mg/dL N 18 (Trig/Chol/HDL) [address] [place] [address] [phone] Cholesterol 203 mg/dL N 19 HDL Cholesterol 50.5 mg/dL N 20 LDL Cholesterol 115 mg/dL N 21 Comp Metabolic Panel 05/11/2016 [facility] Sodium 137 mmol/L N 133-[address] [place] [address] [phone] Potassium 4.3 mmol/L N 3.5-5.0 Chloride 102 [...] 88.0 N >60 Egfr 113.1 N >60 22 Laboratory test 05/11/2016 [facility] TSH (Thyroid 1.55 mcIU/mL N 0.34-5.[address] Stim Horm) [place] [address] [phone] Vitamin D Total 25(Oh) 10.9 ng/mL Low 30-50 Comp Metabolic Panel 05/06/2015 [facility] Sodium 140 mmol/L N 133-[address] [place] [address] [phone] Potassium 4.0 mmol/L N 3.5-5.0 Chloride 105 [...] 98.2 N >60 Egfr 126.3 N >60 23 Lipid Profile 05/06/2015 [facility] Triglycerides 174 mg/dL N 24 (Trig/Chol/HDL) [address] [place] [address] [phone] Cholesterol 195 mg/dL N 25 HDL Cholesterol 54.8 mg/dL N 26 LDL Cholesterol 105 mg/dL N 27 Basic Metabolic Panel 01/29/2015 Sodium 137 mmol/L [...] 93.0 N >60 Egfr 119.6 N >60 28 Laboratory test 01/29/2015 Magnesium 2.2 mg/dL N 1.9-2.7 finding Laboratory test 05/02/2014 [facility] Cytology RUN DATE: [address] 05/05/ <[place] [address] NOTE> [phone] HPV High Risk 05/02/2014 [facility] Human Papillomavirus See Comment N [address] [place] [address] [phone] HPV High Risk Type 16, PCR Negative N Negative HPV High Risk Type 18, PCR Negative N Negative HPV Other Risk types Negative N Negative 31 Urinalysis Profile 03/19/2014 [facility] Urine Color Yellow N [address] [place] [address] [phone] Urine Appearance Cloudy N Urine Specific [place] 1.016 N 1.010-1.030 Urine pH 7.0 N [...] Present Abnormal Absent Urine Culture And 03/19/2014 [facility] Urine Culture (SEE NOTE ) 32 [address] [place] [address] [phone] Ua Routine 03/19/2014 [facility] Ua Specific 1.005 [place] Ua PH 7.5 Ua Color yellow Ua Appera clear Ua WBC mod Ua Protein trace Ua Glucose neg Ua Ketones trace Ua Bilirubin trace Ua Urobilinogen normal Ua Nitrite neg Ua Occult Blood trace Lipid Profile 03/19/2014 [facility] Triglycerides 219 mg/dL N 33 (Trig/Chol/HDL) [address] [place] [address] [phone] Cholesterol 201 mg/dL N 34 HDL Cholesterol 56.2 mg/dL N 35 LDL Cholesterol 101 mg/dL N 36 Liver Function 03/19/2014 [facility] Total Protein 6.8 g/dL N 6.4-8.9 Panel [address] [place] [address] [phone] Albumin 4.3 g/dL N 3.2-5.2 Globulin 2.5 g/dL N 2-4 Albumin/Globulin Ratio 1.7 N 1-3 Total Bilirubin 0.60 mg/dL N 0.2-1.0 Direct Bilirubin 0.10 mg/dL N 0.03-0.18 Indirect Bilirubin 0.5 mg/dL N 0.3-1.0 Alkaline Phosphatase 77 U/L N 34-104 Alt 16 U/L N 7-52 Ast 14 U/L N 13-39 Lipid Profile 06/05/2013 [facility] Triglycerides 105 mg/dL 40-200 (Trig/Chol/HDL) [address] [place] [address] [phone] Cholesterol 192 mg/dL Less than 200 HDL Cholesterol 64 mg/dL High 40-60 37 Cholesterol/HDL Ratio 3.0 Average 1-4.44 LDL Cholesterol 107.0 High Less Than 100 38 Liver Function 06/05/2013 [facility] Total Protein 6.4 g/dL 6.2-8.1 Panel [address] [place] [address] [phone] Albumin 3.9 g/dL 3.6-5.4 Globulin 2.5 g/dL 2-4 Albumin/Globulin Ratio 1.6 1-3 Total Bilirubin 0.5 mg/dL 0.4-1.5 Direct Bilirubin 0.1 mg/dL 0.1-0.5 Indirect Bilirubin 0.4 mg/dL 0.3-1.0 Alkaline Phosphatase 70 U/L 30-110 Alt 20 U/L 14-54 Ast 21 U/L 12-42 Laboratory 06/05/2013 [facility] Hepatitis C Nonreactive Nonreactive 39 test finding 101 [facility] [place] [address] [phone] Laboratory 04/10/2013 [facility] TSH (Thyroid 0.89 miu/mL 0.34-5.60 test finding [address] [facility] [place] [address] Horm) [phone] Comp 04/10/2013 [facility] Sodium 139 mmol/L 133-145 Metabolic [address] [facility] [place] [place] [address] [phone] Potassium 4.3 mmol/L 3.5-5.0 Chloride 105 mmol/L [...] Egfr Non- 102.7 >60 Egfr 132.1 >60 40 Lipid Profile 04/10/2013 [facility] Triglycerides 201 mg/dL High 40-200 (Trig/Chol/HDL) [address] [place] [address] [phone] Cholesterol 235 mg/dL High Less than 200 HDL Cholesterol 61 mg/dL High 40-60 41 Cholesterol/HDL Ratio 3.9 Average 1-4.44 LDL Cholesterol 133.8 High Less Than 100 42 Ua W/Microscopic 05/25/2012 [facility] Ua Appera Cloudy Ua Bacteria NEG Ua Bilirubin Negative Ua Blood Large Ua Casts Hyaline NEG Ua Casts Other NEG Ua Color Brown/Red Ua Crystals NEG Ua Epithelial Cells NEG Ua Glucose Negative Ua Ketones Negative Ua Leuko Negative Ua Nitrite Negative Ua PH 5 Ua Protein 30 Ua RBC MOD Ua Specific [place] 1.025 Ua Urobilinogen Negative Ua WBC FEW Ua Yeast NEG Urine Culture & 05/25/2012 [facility] Urine Culture (SEE NOTE) [address] [place] [address] [phone] Laboratory test 05/18/2012 [facility] Surgical RUN DATE: 44 finding 101 [facility] Pathology 05/22/ <[place] [address] NOTE> [phone] Comp Metabolic 04/18/2012 [facility] Sodium 140 mmol/L 135- 14 Panel [address] [facility] 5 [place] [address] [phone] Potassium 4.3 mmol/L 3.5-5.0 Chloride 110 mmol/L 101-111 Co2 (Carbon Dioxide) 25.0 mmol/L 22-32 Anion Gap 5.0 mmol/L 2-11 45 Glucose 98 mg/dL 70-100 BUN 21 mg/dL 6-24 Creatinine 0.6 mg/dL 0.50-1.40 One Over Creatinine 1.66 BUN/Creatinine Ratio 35.0 High 8-20 Calcium 9.5 mg/dL 8.1-9.9 Total Protein 6.7 GM/DL 6.2-8.1 Albumin 3.9 GM/DL 3.6-5.4 Globulin 2.8 GM/DL 2-4 Albumin/Globulin Ratio 1.4 1-3 Bilirubin Total 0.7 mg/dL 0.4-1.5 46 Alkaline Phosphatase 61 U/L 30-110 Alt (SGPT) 27 U/L 14-54 Ast (Sgot) 23 U/L 12-42 eGFR Non- 103.0 > 60 eGFR 132.5 > 60 47 Lipid Profile 04/18/2012 [facility] Triglyceride 82 mg/dL 40- 200 (Trig/Chol/HDL) [address] [place] [address] [phone] Cholesterol 197 mg/dL Less Than 200 48 High Density Lipoprotein 57 mg/dL 40-60 49 Cholesterol/HDL Ratio 3.46 AVERAGE 1-4.44 Low Density Lipoprotein 124 mg/dL High Less Than 100 50 Laboratory test 04/18/2012 [facility] TSH 0.83 MIU/ML 0.34- 5.60 finding [address] [place] [address] [phone] Ua Routine 04/13/2012 [facility] Ua Specific 1.010 [place] Ua PH 5 Ua Color dark yellow Ua Appera clear Ua WBC neg Ua Protein neg Ua Glucose neg Ua Ketones neg Ua Bilirubin neg Ua Urobilinogen neg Ua Nitrite neg Ua Occult Blood Non hem trace Comp Metabolic Panel 11/02/2011 [facility] Sodium 138 mmol/L 135-145 [address] [place] [address] [phone] Potassium 3.9 mmol/L 3.5-5.0 Chloride 99 mmol/L Low 101-111 Co2 (Carbon Dioxide) 26.0 mmol/L 22-32 Anion Gap 13.0 mmol/L High 2-11 51 Glucose 102 mg/dL High 70-100 BUN 15 mg/dL 6-24 Creatinine 0.5 mg/dL Low 0.50-1.40 One Over Creatinine 2.00 BUN/Creatinine Ratio 30.0 High 8-20 Calcium 9.6 mg/dL 8.1-9.9 Total Protein 7.4 GM/DL 6.2-8.1 Albumin 4.2 GM/DL 3.6-5.4 Globulin 3.2 GM/DL 2-4 Albumin/Globulin Ratio 1.3 1-3 Bilirubin Total 1.0 mg/dL 0.4-1.5 52 Alkaline Phosphatase 66 U/L 30-110 Alt (SGPT) 26 U/L 14-54 Ast (Sgot) 22 U/L 12-42 eGFR Non- 127.6 > 60 eGFR 164.1 > 60 53 Laboratory test 11/02/2011 [facility] TSH 1.04 MIU/ML 0.34- 5.[address] [place] [address] [phone] Troponin-I 0 NG/ML 0-0.06 54 CBC With Manual 11/02/2011 [facility] White Blood 6.9 CUMM 4.8-10.[address] [place] [address] [phone] Red Cell Count 4.40 CUMM 4.2-5.4 Hemoglobin [...] 3.4 RBC Morphology NORMAL Comp Metabolic Panel 04/13/2011 [facility] Sodium 139 mmol/L 135-[address] [place] [address] [phone] Potassium 4.2 mmol/L 3.5-5.0 Chloride 107 mmol/L 101-111 Co2 (Carbon Dioxide) 27.0 mmol/L 22-32 Anion Gap 5.0 mmol/L 2-11 55 Glucose 93 mg/dL 70-100 BUN 14 mg/dL 6-24 Creatinine 0.6 mg/dL 0.50-1.40 One Over Creatinine 1.66 BUN/Creatinine Ratio 23.3 High 8-20 Calcium 9.4 mg/dL 8.1-9.9 Total Protein 6.5 GM/DL 6.2-8.1 Albumin 3.9 GM/DL 3.6-5.4 Globulin 2.6 GM/DL 2-4 Albumin/Globulin Ratio 1.5 1-3 Bilirubin Total 1.0 mg/dL 0.4-1.5 56 Alkaline Phosphatase 56 U/L 30-110 Alt (SGPT) 27 U/L 14-54 Ast (Sgot) 26 U/L 12-42 eGFR Non- 103.4 > 60 eGFR 133.0 > 60 57 Lipid Profile 04/13/2011 [facility] Triglyceride 80 mg/dL 40- 200 (Trig/Chol/HDL) [address] [place] [address] [phone] Cholesterol 201 mg/dL High Less Than 200 58 High Density Lipoprotein 62 mg/dL High 40-60 59 Cholesterol/HDL Ratio 3.24 AVERAGE 1-4.44 Low Density Lipoprotein 123 mg/dL High Less Than 100 60 Laboratory test 04/13/2011 [facility] TSH 1.71 MIU/ML 0.34- 5.60 finding [address] [place] [address] [phone] Laboratory test 04/08/2011 [facility] Cytology [address] ---- <SEE [place] [id number] NOTE> [phone] 1 Because ethnic data is not always [...] 5 Kidney failure <15 (or dialysis) 2 SEE RESULT BELOW Name: COURTNEY ACUÑA: [address]: Zohra Klein MD Acct: [id number] Unit: [id number] AGE: 62 Location: [facility] Re08/22/18 SEX: F Status: REG REF SPEC: [id number] MIKEY: 08/22/[address]: Macy Enriquez NP REQ: [id number] RECD: 08/22/18 STATUS: COMP _ SOURCE: URINE SPDESC: ORDERED: Urine Culture Procedure Result Reported Site Urine Culture Final 08/24/18- 0847 ML No growth of clinically significant organisms * ML - Main Lab . END OF REPORT DEPARTMENT OF PATHOLOGY, [address] [place] [address] Surinder Hernandez M.D. Director [facility] # [id number] 3 Because ethnic data is not always readily [...] 15-29 5 Kidney failure <15 (or dialysis) 4 Desirable: <150 Borderline High: 150-199 High: 200-499 Very High: >500 5 Desirable: <200 Borderline High: 200-239 High: >239 6 Low: <40 Desirable: 40-60 High: >60 7 Desirable: <100 Near Optimal: 100-129 Borderline High: 130-159 High: 160-189 Very High: >189 8 SEE RESULT BELOW Name: COURTNEY ACUÑA : [address]: Macy Enriquez NP Acct: [id number] Unit: [id number] AGE: 62 Location: [facility] Re04/24/18 SEX: F Status: REG REF SPEC: [id number] MIKEY: 04/24/[address]: Macy Enriquez NP REQ: [id number] RECD: 04/24/18 STATUS: RES _ SOURCE: URINE SPDESC: ORDERED: Urine Culture QUERIES: Urine Source: Clean Catch Procedure Result Reported Site Urine Culture Preliminary 04/27/18- 0815 ML Organism 1 STAPHYLOCOCCUS AUREUS [place] Count 10-25,000 (Moderate) CFU/ML Organism 2 NORMAL RONI [place] Count 50-75,000 (Many) CFU/ML * ML - Main Lab . END OF REPORT DEPARTMENT OF PATHOLOGY, [address] [place] [address] Surinder Hernandez M.D. Director [facility] # [id number] 10 The high-risk HPV types detected by the assay include: 16, 18, 31, 33, 35, 39, 45, 51, 52, 56, 58, 59, 66, and 68. 11 SEE RESULT BELOW Name: COURTNEY ACUÑA : [address]: Macy Enriquez NP Acct: [id number] Unit: [id number] AGE: 61 Location: [facility] Re06/26/17 SEX: F Status: REG REF SPEC: [id number] MIKEY: 06/26/17-[address] [facility] [address]: Macy Enriquez NP REQ: [id number] RECD: 06/26/171056 STATUS: SOUT _ ORDERED: TP IMAGE ANAL, HPV/Thin Prep, HPV 16/18 GENE COMMENTS: [id number] FINAL DIAGNOSIS Negative for Intraepithelial lesion or [...] and 68. Signed (signature on file) STERLING Alejo(ASC) 06/27 1358 This Pap test was evaluated with the assistance of the Secret Test Imaging System. Due to cytologic findings at the archival studies professor microscope, comprehensive manual rescreening by a Yeast Fermentation Attendant may be required. The Pap Smear is [...] years. END OF REPORT RUN DATE: 06/27/17 [facility] LAB LIVE PAGE 1 Patient: COURTNEY ACUÑA [id number] (Continued) * ML=Testing performed at Main Lab DEPARTMENT OF PATHOLOGY, [address] [place] [address] Surinder Hernandez M.D. Director [facility] # [id number] 12 Because ethnic data is not always readily [...] 15-29 5 Kidney failure <15 (or dialysis) 13 Desirable: <150 Borderline High: 150-199 High: 200-499 Very High: >500 14 Desirable: <200 Borderline High: 200-239 High: >239 15 Low: <40 Desirable: 40-60 High: >60 16 Desirable: <100 Near Optimal: 100-129 Borderline High: 130-159 High: 160-189 Very High: >189 17 SEE RESULT BELOW Name: COURTNEY ACUÑA : [address]: Dakota Gomes MD Acct: [id number] Unit: [id number] AGE: 60 Location: ENDO Re06/22/16 SEX: F Status: DEP REF SPEC: [id number] MIKEY: 06/22/16- [facility] DR: Dakota oGmes MD REQ: [id number] RECD: 06/22/161543 STATUS: AMANDA MCMAHAN DR: Macy Enriquez DATA SCIENCES DIRECTOR _ ORDERED: LEVEL IV FINAL DIAGNOSIS Colon, [...] performed at Main Lab DEPARTMENT OF PATHOLOGY, [address] [place] [address] Surinder Hernandez M.D. Director [facility] # [id number] 18 Desirable <150 Borderline high 150-199 High 200-499 Very High >500 19 Desirable <200 Borderline high 200-239 High >239 20 Low <40 Desirable: 40-60 High: >60 21 Desirable: <100 mg/dL Near Optimal: 100-129 mg/dL Borderline High: 130-159 mg/dL High: 160-189 mg/dL Very High: >189 mg/dL 22 Because ethnic data is not always readily [...] 15-29 5 Kidney failure <15 (or dialysis) 23 Because ethnic data is not always readily [...] 15-29 5 Kidney failure <15 (or dialysis) 24 Desirable <150 Borderline high 150-199 High 200-499 Very High >500 25 Desirable <200 Borderline high 200-239 High >239 26 Low <40 Desirable: 40-60 High: >60 27 Desirable: <100 mg/dL Near Optimal: 100-129 mg/dL Borderline High: 130-159 mg/dL High: 160-189 mg/dL Very High: >189 mg/dL 28 Because ethnic data is not always readily [...] 15-29 5 Kidney failure <15 (or dialysis) 29 RUN DATE: 05/05/14 [facility] LAB LIVE PAGE 1 RUN TIME: [address] [place], [place] [address] Specimen Inquiry Name: COURTNEY ACUÑA : [address]: Macy Enriquez NP Acct: [id number] Unit: [id number] AGE: 58 Location: [facility] Re05/02/14 SEX: F Status: REG REF SPEC: [id number] MIKEY: 05/02/14-[address]: Macy Enriquez NP REQ: [id number] RECD: 05/02/14 STATUS: SOUT _ ORDERED: IMAGE ANALYSIS, HPV/Thin Prep FINAL DIAGNOSIS Negative for Intraepithelial lesion or Malignancy COMMENTS: Specimen sent to [facility] in [place], [place] on 05/05/14 by [id number] at 1030. Results will be reported separately. [...] System. Due to cytologic findings at the archival studies professor microscope, comprehensive manual rescreening by a Yeast Fermentation Attendant may be required. The Pap Smear is [...] performed at Main Lab DEPARTMENT OF PATHOLOGY, [address] [place] [address] Surinder Hernandez M.D. Director [facility] # [id number] RESULT: Ectocervical/Endocervical 31 The following Other High Risk HPV types were not detected: 31, 33, 35, 39, 45, 51, 52, 56, 58, 59, 66, and 68 Test Performed by: [place] [address] Penology Teacher: Juan Ramon Fisher III, M.D. 32 RUN DATE: 03/24/14 [facility] LAB LIVE PAGE 1 RUN TIME: [address] [place] [address] Specimen Inquiry Name: COURTNEY ACUÑA : [address]: Macy Enriquez NP Acct: [id number] Unit: [id number] AGE: 58 Location: [facility] Re03/19/14 SEX: F Status: REG REF SPEC: [id number] MIKEY: 03/19/[address] [facility] [address]: Macy Enriquez NP REQ: [id number] RECD: 03/19/14 STATUS: COMP _ SOURCE: URINE SPDESC: ORDERED: Urine Culture QUERIES: [facility] Number [id number] Procedure Result Verified Site Urine Culture Final 03/24/14- 1524 ML Organism 1 KLEBSIELLA OXYTOCA [place] Count 10-25,000 (Moderate) CFU/ML Organism 2 ENTEROBACTER CLOACAE COMPLEX [place] Count 10-25,000 (Moderate) CFU/ML 1. KLEBSIELLA OXYTOCA [...] performed at Main Lab DEPARTMENT OF PATHOLOGY, [facility] [place] [id number] Surinder Hernandez M.D. Director [facility] # [id number] RUN DATE: 03/24/14 [facility] LAB LIVE PAGE 2 RUN TIME: 1523 [facility] [place], [place] [address] Specimen Inquiry Patient: COURTNEY ACUÑA [id number] (Continued) Specimen: [id number] Collected: 03/19/14 Received: 03/19/14-161 (Continued) Procedure Result Verified Site Urine Culture [...] performed at Main Lab DEPARTMENT OF PATHOLOGY, [address] [place] [address] Surinder Hernandez M.D. Director [facility] # [id number] Desirable <150 Borderline high 150-199 High 200-499 Very High >500 34 Desirable <200 Borderline high 200-239 High >239 35 Low <40 Desirable: 40-60 High: >60 36 Desirable <100 Near Optimal 100-129 Borderline high 130-159 High 160-189 Very High >189 37 HDL Interpretation: Undesirable: High Risk: Less than 40 mg/dL Desirable: Low Risk: Greater than 60 mg/dL 38 LDL Interpretation: Low Risk Optimal Level: LDL Less than 100 mg/dL Near or Above Optimal: LDL 100-129 mg/dL Borderline High Risk: LDL 130-159 mg/dL High Risk: LDL 160-189 mg/dL Very High Risk: LDL Greater than 189 mg/dL 39 FASTING 12 HOUR Please get this done [...] 15-29 5 Kidney failure <15 (or dialysis) 41 HDL Interpretation: Undesirable: High Risk: Less than 40 mg/dL Desirable: Low Risk: Greater than 60 mg/dL 42 LDL Interpretation: Low Risk Optimal Level: LDL Less than 100 mg/dL Near or Above Optimal: LDL 100-129 mg/dL Borderline High Risk: LDL 130-159 mg/dL High Risk: LDL 160-189 mg/dL Very High Risk: LDL Greater than 189 mg/dL 43 RUN DATE: 05/27/12 [facility] LAB LIVE PAGE 1 RUN TIME: [address] [place], [place] [address] Specimen Inquiry Name: COURTNEY ACUÑA : [address]: Macy Elder Acct: [id number] Unit: [id number] AGE: 56 Location: [facility] Re05/25/12 SEX: F Status: REG REF SPEC: [id number] MIKEY: 05/25/[address] [facility] [address]: Mayc Elder REQ: [id number] RECD: 05/25/12 STATUS: WALLY MCMAHAN DR: _ SOURCE: URINE SPDES: ORDERED: Urine Culture QUERIES: [facility] Number [id number] Urine Source: Random Procedure Result Verified Site Urine Culture Final 05/27/12- 1612 ML Organism 1 NORMAL RONI [place] Count 1-10,000 (Few) CFU/ML END OF REPORT * ML=Testing performed at Main Lab DEPARTMENT OF PATHOLOGY, [address] [place] [address] Surinder Hernandez M.D. Director [facility] Permit #[id number] RUN DATE: 05/22/12 [facility] LAB LIVE PAGE 1 RUN TIME: 1558 [address] [place], [place] [address] Specimen Inquiry Name: COURTNEY ACUÑA : [address]: Macy Elder Acct: [id number] Unit: [id number] AGE: 56 Location: [facility] Re05/18/12 SEX: F Status: REG REF SPEC : [id number] RECD: 05/21/12 STATUS: AMANDA SIMS NUM: [id number] MIKEY: 05/18/12- SUBM DR: Macy Elder ENTERED: 05/21/12 SP TYPE: [...] performed at Main Lab DEPARTMENT OF PATHOLOGY, [address] [place] [address] Surinder Hernandez M.D. Director [facility] Permit #[id number] 45 Anion gap measurement may be of limited value in the presence of any alkalosis, especially in a combined acid base disorder. . 46 A metabolite of Naproxen, O-desmethylnaproxen, has been shown to interfere with the Jendrassik-Fermín method for measuring total bilirubin. Samples from patients who have taken Naproxen have shown spurious elevation in total bilirubin levels. 47 Because ethnic data is not always readily [...] 15-29 5 Kidney failure <15 (or dialysis) 48 CHOLESTEROL INTERPRETATION: Desirable: Less than 200 MG/DL Borderline-High Risk: 200-239 MG/DL High-Risk: 240 MG/DL and over 49 HDL INTERPRETATION: Undesirable: High Risk: Less than 40 MG/DL Desirable: Low Risk: Greater than 60 MG/DL 50 LDL INTERPRETATION: Low Risk Optimal Level: LDL Less than 100 MG/DL Near or Above Optimal: LDL 100-129 MG/DL Borderline High Risk: LDL 130-159 MG/DL High Risk: LDL 160-189 MG/DL Very High Risk: LDL Greater than 189 MG/DL 51 Anion gap measurement may be of limited value in the presence of any alkalosis, especially in a combined acid base disorder. . 52 A metabolite of Naproxen, O-desmethylnaproxen, has been shown to interfere with the Jendrassik-Mcbee method for measuring total bilirubin. Samples from patients who have taken Naproxen have shown spurious elevation in total bilirubin levels. 53 Because ethnic data is not always readily [...] 15-29 5 Kidney failure <15 (or dialysis) 54 New Reference Range and Interpretation effective 05/17/2002 TnI (ng/ml) INTERPRETATION Less Than 0.06 ng/mL NOT SUPPORTIVE OF DIAGNOSIS OF CO 0.06 - 0.50 ng/ml INDETERMINATE: SUGGEST SERIAL STUDIES IF CLINICALLY INDICATED. Greater than 0.5 ng/mL CONSISTENT WITH DIAGNOSIS OF CO . 55 Anion gap measurement may be of limited value in the presence of any alkalosis, especially in a combined acid base disorder. . 56 A metabolite of Naproxen, O-desmethylnaproxen, has been shown to interfere with the Jendrassik-Fermín method for measuring total bilirubin. Samples from patients who have taken Naproxen have shown spurious elevation in total bilirubin levels. 57 Because ethnic data is not always readily [...] 15-29 5 Kidney failure <15 (or dialysis) 58 CHOLESTEROL INTERPRETATION: Desirable: Less than 200 MG/DL Borderline-High Risk: 200-239 MG/DL High-Risk: 240 MG/DL and over 59 HDL INTERPRETATION: Undesirable: High Risk: Less than 40 MG/DL Desirable: Low Risk: Greater than 60 MG/DL 60 LDL INTERPRETATION: Low Risk Optimal Level: LDL Less than 100 MG/DL Near or Above Optimal: LDL 100-129 MG/DL Borderline High Risk: LDL 130-159 MG/DL High Risk: LDL 160-189 MG/DL Very High Risk: LDL Greater than 189 MG/DL 61 ---- RUN DATE: 04/11/11 [facility] NMI LIVE PAGE 1 RUN TIME: 1527 Specimen Inquiry RUN USER: INTERFACE -- Name: CUORTNEY ACUÑA Status: REG REF Re04/08/11 Age/Sex: 55/F Unit#: [id number] [facility] -- Specimen: [id number] SOUT Spec Date: 04/08/[address]: Macy patterson [facility] Spec Type: CYTOLOGY Received: 04/11/11-1142 Copies to: [...] 15 24 -- -- DEPARTMENT OF PATHOLOGY, [address] [place] [address] [facility] Permit #[id number] Sharri Downs M.D. Senior Sales Operations Analyst Dir susi -- Procedures Date Code Description Status 12/20/201837787 Inject Tendon Sheath Or Ligament Aponeurosis Eg Plantar Completed Fascia 10/01/2018 01488054 Mammogram Completed 08/02/201813791 Inject Tendon Sheath Or Ligament Aponeurosis Eg Plantar Completed Fascia 05/09/2018 57902 EKG Tracing & Interpretation Completed 11/29/201706554 Inject Tendon Sheath Or Ligament Aponeurosis Eg Plantar Completed Fascia 07/25/2017 97309665 Mammogram Completed 03/08/201782129 Inject Tendon Sheath Or Ligament Aponeurosis Eg Plantar Completed Fascia 07/20/201601764 Inject Tendon Sheath Or Ligament Aponeurosis Eg Plantar Completed Fascia 06/22/2016 11721441 Colonoscopy Completed 06/10/2016 58085482 Mammogram Completed 02/25/2016 07746 EKG Tracing & Interpretation Completed 06/05/2015 47508707 Mammogram Completed 02/18/2015 10776 Treadmill Interp/Report Only Completed 02/18/2015 01673 Stress Test Supervsn W/Out I/R Completed 02/18/2015 11203 Stress Test Completed 02/18/2015 24639 Myocardial Perfusion Imaging Tomographic (Spect) Completed Multiple Studies 12/18/2014 72433 EKG Tracing & Interpretation Completed 06/25/2014 84054 EKG Tracing & Interpretation Completed 05/28/2014 56680 Inject Tendon Sheath Or Ligament Aponeurosis Eg Plantar Completed Fascia 05/09/2014 47004789 Mammogram Completed 12/19/2013 07828 EKG Tracing & Interpretation Completed 08/01/2013 05920 open tx of metacarpal fx,single inclds internal Completed fixation when per 08/01/2013 66752 open tx of metacarpal fx,single inclds internal Completed fixation when per 08/01/2013 92084 Trigger Finger Release Incision / Tendon Sheath Completed Incision 08/01/2013 30252 Trigger Finger Release Incision / Tendon Sheath Completed Incision 05/16/2013 44991 Holter Monitoring 24 HR New Completed 05/14/2013 71779 Stress Test Completed 05/14/2013 94168 Myocardial Perfusion Imaging Tomographic (Spect) Completed Multiple Studies 05/08/2013 91632 EEG Recording Awake & Drowsy Completed 05/08/2013 91868172 Mammogram Completed 05/02/2013 13153 EKG Tracing & Interpretation Completed 04/19/2013 15812 EKG Tracing & Interpretation Completed 01/23/2013 67353 Inject Tendon Sheath Or Ligament Aponeurosis Eg Plantar Completed Fascia 01/09/2013 94833 Inject Tendon Sheath Or Ligament Aponeurosis Eg Plantar Completed Fascia 01/09/2013 94631 Inject Tendon Sheath Or Ligament Aponeurosis Eg Plantar Completed Fascia 01/09/2013 26029 Inject Tendon Sheath Or Ligament Aponeurosis Eg Plantar Completed Fascia 05/18/2012 36548 Excise Benign lesion 1.1-2CM Trunk/Arm/Leg Completed 05/18/2012 99735 excision, soft tissue of back, or flank Completed 04/27/2012 34814997 Mammogram Completed 11/08/2011 41115 Holter Monitor Review (24 hr)dr kavitha & interp only Completed 11/02/2011 16460 EKG Tracing & Interpretation Completed 04/15/2011 69873540 Mammogram Completed 01/14/2010 50421736 Mammogram Completed 01/06/2010 20422 Biopsy Cervix, Single Or Multiple, Or Local Excision Of Completed Lesion 10/27/2008 70835 Holter Monitor Review (24 hr)dr plummer & leyla only Completed 12/18/2007 05733 EKG Tracing & Interpretation Completed 12/18/2007 68130 EKG Tracing & Interpretation Completed 12/05/2006 19197 EKG Tracing & Interpretation Completed Encounters Type Date Location Provider Dx Diagnosis Office Visit 08/20/2018 [facility] Internal Medicine Zohra Klein, R05 Cough 2:00p - Divine Harrell R91.8 Other nonspecific abnormal finding of lung field S22.31xA Fracture of one rib, right side, init for clos fx Office Visit 08/15/2018 10:40a [facility] Internal Medicine - Isabel Granados MD R05 Cough [place] S23.41xD Sprain of ribs, subsequent encounter Office Visit 07/31/2018 10:20a [facility] Internal Macy Enriquez, Z00.00 Encntr for Medicine N.P. general adult medical exam w/o abnormal findings Z12.31 Encntr screen mammogram for malignant neoplasm of breast E78.00 Pure hypercholesterolemia, unspecified I49.3 Ventricular premature depolarization K21.9 Gastro-esophageal reflux disease without esophagitis Z85.51 Personal history of malignant neoplasm of bladder F41.9 Anxiety disorder, unspecified Office Visit 07/10/2018 [facility] Internal Isabel Granados, L29.2 Pruritus vulvae 4:30p Medicine Office Visit 05/09/2018 Andriy Delgado I49.3 Ventricular 4:00p Cardiology Of [place], DO premature [facility] FACC depolarization Office Visit 09/04/2017 [facility] Internal Oliverio Juanito, M25.511 Pain in right 4:00p Medicine DATA SCIENCES DIRECTOR shoulder R53.1 Weakness Office Visit 06/26/2017 9:20a [facility] Internal Macy Enriquez, Z00.01 Encounter for Medicine N.P. general adult medical exam w abnormal findings Z12.31 Encntr [...] Trisha Munoz, M65.332 Trigger finger, Services Of ESTELA-C left middle C.M.A. finger Office Visit 05/27/2016 1:40p [facility] Internal Macy Enriquez, Z00.00 Encntr for Medicine N.P. general adult medical exam w/o abnormal findings Z12.31 Encntr screen mammogram for malignant neoplasm of breast E78.00 Pure hypercholesterolemia, unspecified Z85.51 Personal history of malignant neoplasm of bladder R00.2 Palpitations E55.9 Vitamin D deficiency, unspecified Office Visit 02/25/2016 2:40p [facility] Brent Phillips, I47.2 Ventricular Of Center Line Cutter Operator AT [facility], tachycardia FSCAI Office Visit 05/22/2015 3:20p [facility] Internal Macy Enriquez, Z00.00 Encntr for Medicine N.P. general adult medical exam w/o abnormal findings Z12.39 Encounter for oth screening for malignant neoplasm of breast E78.2 Mixed hyperlipidemia C67.8 Malignant neoplasm of overlapping sites of bladder I49.3 Ventricular premature depolarization Office Visit 03/12/2015 2:40p [facility] Brent Phillips, 785.1 Palpitations Of Center Line Cutter Operator AT [facility], FSCAI 427.1 Paroxysmal Ventricular Tachycardia Office Visit 01/29/2015 2:40p [facility] Brent Phillips, 785.1 Palpitations Of Center Line Cutter Operator AT [facility], FSCAI 427.69 Premature Beats Other Office Visit 12/18/2014 2:40p [facility] Brent Phillips, 427.69 Premature Beats Of Center Line Cutter Operator AT [facility], Other FSCAI 785.1 Palpitations Office Visit 06/25/2014 9:20a [facility] Internal Macy Enriquez, 427.69 Premature Beats Medicine N.P. Other 300.00 Anxiety State Unspec Office Visit 05/28/2014 Orthopedic Ayesha 727.03 Trigger Finger 8:30a Services Of Sharri Lynn Acquired C.M.A. Office Visit 05/16/2014 Orthopedic Misha Myers, 726.72 Tendinitis 1:30p Services Of Sharri Tibialis C.M.A. Office Visit 05/02/2014 [facility] Internal Macy Enriquez, V70.0 Examination 3:20p Medicine N.P. General Medical Routine AT Health Care Facility V72.31 Routine Brake Repairer Hydraulic Examination V76.10 Screening For Malignant Neoplasm Breast 272.4 Hyperlipidemia Other Unspec 188.8 Malignant Neoplasm Bladder Other Spec Sites Office Visit 04/11/2014 1:00p Orthopedic Misha 726.72 Tendinitis Services Of Sharri Myers Tibialis C.M.A. 726.71 Bursitis Or Tendinitis Achilles Office Visit 03/19/2014 10:40a [facility] Internal Macy Enriquez, 599.0 UTI Urinary Medicine N.P. Tract Infection Site Not Spec 729.5 Pain In Limb Office Visit 12/19/2013 3:00p [facility] Brent Phillips, 427.69 Premature Beats Of Center Line Cutter Operator AT [facility] Sharri, [facility], Other FSCAI 272.4 Hyperlipidemia Other Unspec Office Visit 09/25/2013 1:00p [facility] S. 780.4 Dizziness & Services Of Jaswinder Mcadams M.D. Giddiness 794.02 Electroencephalogram Abnormal Brain & Central Nervous Sys Office Visit 05/30/2013 9:30a [facility] Brent Phillips, 427.69 Premature Beats Of Jaswinder Harrell, [facility], Other FSCAI 780.4 Dizziness & Giddiness Office Visit 05/22/2013 Orthopedic Ayesha 727.03 Trigger Finger 11:15a Services Of Sharri Lynn Acquired C.M.A. Office Visit 05/02/2013 [facility] Brent Phillips M.D., 780.4 Dizziness & 2:15p Cardiology Of [facility], FSCAI Giddiness [facility] 427.69 Premature Beats Other Office Visit 04/19/2013 3:00p [facility] Internal Macy Enriquez, V70.0 Examination Medicine N.P. General Medical Routine AT Health Care Facility V72.31 Routine Brake Repairer Hydraulic Examination V76.10 Screening For Malignant Neoplasm Breast 272.4 Hyperlipidemia Other Unspec 188.8 Malignant Neoplasm Bladder Other Spec Sites 780.4 Dizziness & Giddiness Office Visit 01/23/2013 Orthopedic Ayesha 727.03 Trigger Finger 11:00a Services Of Sharri Lynn Acquired C.M.A. Office Visit 01/09/2013 Orthopedic Ayesha 727.03 Trigger Finger 8:30a Services Of Sharri Lynn Acquired C.M.A. Office Visit 05/25/2012 [facility] Internal Macy Stroudn, N.P. 599.0 UTI Urinary 2:20p Medicine Tract Infection Site Not Spec V58.32 Encounter For Removal Of Sutures Office Visit 05/16/2012 10:00a [facility] Internal Macy Enriquez, 706.2 Sebaceous Cyst Medicine N.P. Office Visit 04/13/2012 3:00p [facility] Internal Macy Enriquez, V70.0 Examination Medicine N.P. General Medical Routine AT [facility] Facility V72.31 Routine Brake Repairer Hydraulic Examination V76.10 Screening For Malignant Neoplasm Breast 272.4 Hyperlipidemia Other Unspec 188.8 Malignant Neoplasm Bladder Other Spec Sites 727.03 Trigger Finger Acquired Office Visit 11/09/2011 10:40a [facility] Internal Laura Gray, 785.1 Palpitations Medicine M.D., FACP Office Visit 11/02/2011 10:40a [facility] Internal Laura Gray, 785.1 Palpitations Medicine M.D., FACP Office Visit 06/07/2011 4:20p DO Not Use Macy Varn, 681.02 Onychia & Center Line Cutter Operator-[place] N.P. Paronychia Finger Office Visit 04/08/2011 3:00p DO Not Use Macy Varn, V70.0 Examination Center Line Cutter Operator-[place] N.P. General Medical Routine AT Health Care Facility V72.31 Routine Brake Repairer Hydraulic Examination 272.4 Hyperlipidemia Other Unspec 188.8 Malignant Neoplasm Bladder Other Spec Sites Office Visit 02/16/2011 DO Not Use Macy Varn, 719.41 Pain Joint 2:00p Center Line Cutter Operator-[place] N.P. Shoulder Region Office Visit 12/25/2009 DO Not Use Macy Varn, V72.31 Routine Brake Repairer Hydraulic 3:00p Center Line Cutter Operator-[place] N.P. Examination 622.7 Mucous Polyp Cervix Office 10/31/2008 DO Not Use Macy 272.0 Hypercholesterolemia Visit 2:30p Center Line Cutter Operator-[place] Varn, N.P. Pure Office 10/17/2008 DO Not Use Laura Gray, 785.1 Palpitations Visit 2:15p [facility] F[facility] 786.05 Shortness Of Breath 300.00 Anxiety State Unspec Office Visit 04/02/2008 DO Not Use Macy 466.0 Bronchitis Acute 9:00a Center Line Cutter Operator-[place] Varn, N.P. Office Visit 12/18/2007 DO Not Use Macy V72.31 Routine Brake Repairer Hydraulic 2:30p Center Line Cutter Operator-[place] Varn, N.P. Examination Office Visit 01/12/2007 DO Not Use Macy 272.4 Hyperlipidemia 2:30p Center Line Cutter Operator-[place] Varn, N.P. Other Unspec 794.8 Liver Study Abnormal Office Visit 12/05/2006 DO Not Use Macy Varn, V72.31 Routine Brake Repairer Hydraulic 2:45p Center Line Cutter Operator-[place] N.P. Examination 272.0 Hypercholesterolemia Pure V06.1 Pnakmobqvd-Bpkhcaf-Jskkqinn Combined (DTaP) Plan of Treatment Future Appointment(s):08/02/2019 2:20 pm - Macy Enriquez, N.P. at [facility] Internal Srevthbd10/09/2019 - Ninfa Ernandez M.D.M65.332 Trigger finger, left middle fingerFollow up:Follow up: As needed
[2019-01-11 15:27] VITALS: BP 142/66
--- NOTE | 2019-01-11 15:45 | UC ---
Throat Pain/Nasal Asaf HPI - HPI Summary HPI Summary: Patient is a 63-year-old female who presents to the urgent care with a chief complaint of having a dry cough, nasal congestion, mild postnasal drip, and generalized malaise. The patient denies any chest pain, shortness of breath or palpitations. Patient reports that I think I have an upper respiratory tract infection. Patient denies any fever or chills. Patient has no other complaints. - History of Current Complaint Chief Complaint: UCRespiratory Stated Complaint: cough, AND EAR ACHE Time Seen by Provider: 01/11/19 15:27 Hx Obtained From: Patient Hx Last Menstrual Period: post menopause Onset/Duration: Gradual Onset Severity: Mild Pain Intensity: 0 - Allergies/Home Medications Allergies/Adverse Reactions: Allergies Allergy/AdvReac Type Severity Reaction Status Date / Time No Known Allergies Allergy Verified 01/11/19 15:27 Home Medications: Home Medications D-Methorphan/PE/Acetaminophen [Vicks Dayquil Liquid] 1 liq PO ONCE PRN 01/11/19 [History Confirmed 01/11/19] Rosuvastatin (NF) [Crestor (NF)] 01/11/19 [History Confirmed 01/11/19] PMH/Surg Hx/FS Hx/Imm Hx Previously Healthy: Yes Endocrine History: Dyslipidemia Cardiovascular History: Hypertension Psychological History: Depression - Surgical History Surgical History: Yes Surgery Procedure, Year, and Place: CARPAL TUNNEL AND TRIGGER FINGER SURGERIES; . PINS AND PLATES IN WRIST (REMOVED); - Family History Known Family History: Positive: Unknown, Non-Contributory - Social History Alcohol Use: None Substance Use Type: None Smoking Status (MU): Former Smoker When Did the Patient Quit Smoking/Using Tobacco: 40 years Review of Systems All Other Systems Reviewed And Are Negative: Yes Constitutional: Positive: Negative Skin: Positive: Negative Eyes: Positive: Negative ENT: Positive: Negative Respiratory: Positive: Cough Cardiovascular: Positive: Negative Gastrointestinal: Positive: Negative Genitourinary: Positive: Negative Motor: Positive: Negative Neurovascular: Positive: Negative Musculoskeletal: Positive: Negative Neurological: Positive: Negative Psychological: Positive: Negative Is Patient Immunocompromised?: No Physical Exam - Summary Physical Exam Summary: VITAL SIGNS: Reviewed. GENERAL: Patient is an obese female with some distress secondary to the shortness of breath. However, she is able to speak in full sentences. HEAD AND FACE: Normocephalic and atraumatic. EYES: PERRLA, EOMI x 2, No injected conjunctiva. EARS: Hearing grossly intact. Ear canals and tympanic membranes WNL MOUTH: Dry oral mucosa. NECK: Supple, trachea is midline, no adenopathy, no JVD, no carotid bruit. CHEST: Symmetric, No intercostal or abdominal retraction, LUNGS: Coarse breath sounds bilateral CVS: RRR,, S1 and S2 present, no murmurs or gallops appreciated. ABDOMEN: Soft, non-tender. No signs of distention. Positive BS. No rebound, no guarding, and no masses palpated. EXTREMITIES: FROM in all major joints, no edema, no cyanosis or clubbing. NEURO: Alert and oriented x 3. No acute neurological deficits. Speech is normal and follows commands. SKIN: Dry and warm Triage Information Reviewed: Yes Appearance: Well-Appearing, No Pain Distress, Well-Nourished Vital Signs: Initial Vital Signs Temp 98.3 F 01/11/19 15:22 Pulse 80 01/11/19 15:22 Resp 16 01/11/19 15:22 BP 142/66 01/11/19 15:22 Pulse Ox 98 01/11/19 15:22 Throat Pain/Nasal Course/Dx - Course Course Of Treatment: Chest x-ray impression: Healing fracture of the sixth and seventh ribs. No acute pathology. Therefore the patient will be discharged home with follow-up with the primary care physician. Since there is no pneumonia, no bronchitis the patient will be given a prescription to treat the cough. She will be given Robitussin AC. She was also given instructions that if the symptoms worsen she should go to the emergency department for further workup and management. The patient understands and agrees. - Differential Dx/Diagnosis Provider Diagnosis: Cough Discharge - Sign-Out/Discharge Documenting (check all that apply): Patient Departure All imaging exams completed and their final reports reviewed: No Studies - Discharge Plan Condition: Stable Disposition: HOME Prescriptions: guaiFENesin/CODIEN 100MG-10MG* [Robitussin AC 100Mg-10Mg*] 5 ml PO Q4H PRN #90 ml MDD 30 ml PRN Reason: Cough Patient Education Materials: Chronic Cough (ED) Referrals: Macy Enriquez NP [Primary Care Provider] - Additional Instructions: Take medications as instructed Increase your fluid intake F/U with PCP in the next 2-3 days Return to the UC if symptoms worsen - Billing Disposition and Condition Condition: STABLE Disposition: Home
== END 2019-01-11 16:20 | disposition home or self-care (01) ==
LOC: UCEAST 15:17
DX: R05 Cough (principal); Z87.891 Personal history of nicotine dependence; I10 Essential (primary) hypertension; E78.5 Hyperlipidemia, unspecified
CPT/HCPCS: 71046; 99212; G0463

== ENCOUNTER 2019-09-28 07:00 | Emergency (ER) | payer BC ==
--- OUTSIDE RECORDS SUMMARY | 2019-09-28 07:08 | XMS REPORT | Continuity of Care Document ---
:1955 External Reference #:[id number] Author Name Macy Enriquez N.P. (transmitted by agent of provider Helena Osorio) Address 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 Onset: 04/08/2011 Premature beats Brent Phillips M.D., [facility], [facility] Onset: 12/19/2013 Palpitations Brent Phillips M.D., [facility], [facility] Onset: 12/18/2014 Social History Type Date Description Comments Sex Unknown ETOH Use Denies alcohol use Tobacco Use Start: Unknown End: Patient is a former smoker Unknown Recreational Drug Use Never Used Drugs Smoking Status Reviewed: 08/02/19 Patient is a former smoker Exercise Type/Frequency Does not exercise Allergies, Adverse Reactions, Alerts Description No Known Drug Allergies Medications Active Medications SIG Qnty Indications Ordering Provider Date Rosuvastatin Calcium 1 by mouth every 30tabs E78.00 Macy Enriquez, 2018 day N.P. 20mg Tablets Clobetasol Propionate use on affected 30gm N77.1 Macy Enriquez, 08/02/2019 area 2x daily for N.P. 0.05% Cream 2 weeks then 2 week off Omeprazole Take 1 Capsule By 90caps K21.9 Macy Enriquez, 08/15/2017 20mg Mouth Once Daily N.P. Capsules Paroxetine HCL 1 by mouth every 30tabs Macy Stroudyesenia, 09/28/2016 20mg day N.P. Tablets Metoprolol Succinate 1 by mouth twice 60tabs I49.3 Macy Stroudyesenia, 2014 ER a day N.P. 25mg Tablets ER 24HR Advil PM 1 po qhs Unknown 200-25mg Capsules Vitamin D-3 1 by mouth every Unknown 1000Unit day Capsules History Medications Baclofen take 1 tablet by 30tabs M79.669 Isabel Granados MD 06/14/2019 - 10mg mouth every 8 08/01/2019 Tablets hours as needed for leg pain Medications Administered in Office Medication SIG Qnty Indications Ordering Provider Date Depomedrol 40MG Ninfa Ernandez M.D. 12/20/2018 Injection Depomedrol 40MG Ninfa Ernandez M.D. 08/02/2018 Injection Depomedrol 40MG Ninfa Ernandez M.D. 11/29/2017 Injection Depomedrol 40MG SULAIMAN Peterson 03/08/2017 Injection Depomedrol 40MG SULAIMAN Peterson 07/20/2016 Injection Technetium TC 99M Zackery Burrell M.D., 02/18/2015 Tetrofosmin, Per Unit Dose [facility] Up To 40 Millicuries Injection Technetium TC 99M Stephen Garibay M.D. 02/18/2015 Tetrofosmin, Per Unit Dose Up To 40 Millicuries Injection Celestone 3 mg and 3mg Ayesha Lynn, 05/28/2014 Injection M.DMichael Technetium TC 99M Brent Phillips M.D., [facility], 05/14/2013 Tetrofosmin, Per Unit Dose [facility] Up To 40 Millicuries Injection Celestone 3 mg and 3mg Ayesha Snowden-Hasmukh, 01/23/2013 Injection M.DMichael Celestone 3 mg and 3mg Ayesha Lynn, 01/23/2013 Injection M.D. Celestone 3 mg and 3mg Ayesha Snowden-Young, 01/09/2013 Injection M.D. Celestone 3 mg and 3mg Ayesha Snowden-Young, 01/09/2013 Injection M.D. Celestone 3 mg and 3mg Ayesha Snowden-Young, 01/09/2013 Injection M.D. Celestone 3 mg and 3mg Ayesha Snowden-Young, 01/09/2013 Injection M.D. Immunizations CPT Code Status Date Vaccine Lot # 39823 Given 04/30/2019 Zoster (Shingles) Vaccine (HZV), Recombinant, Subunit, Adjuvanted 58966 Given 05/05/2018 Influenza Virus Vaccine, Quadrivalent, Split, Preservative Free 39061 Given 04/10/2017 Pneumonia Vaccine 69864 Given 04/10/2017 Influenza Virus Vaccine, Quadrivalent, Split, Preservative Free 01665 Given 05/05/2016 Tdap - Tetanus/Diptheria/Acellular Pertussis Q2035 Given 04/20/2016 Afluria Vaccine 15839 Given 05/11/2015 Zoster (Zostavax) Q2035 Given 04/27/2015 Afluria Vaccine 40809 Given 04/27/2015 Pneumococcal Conjugate Vaccine 13 Valent For Intramuscular Use 59190 Given 04/22/2014 Influenza Virus 3Yrs & Over 60324 Given 04/22/2014 Influenza Virus 3Yrs & Over Q2035 Given 04/17/2013 Afluria Vaccine Q2038 Given 04/19/2012 Fluzone Vaccine 34571 Given 04/28/2011 Influenza Virus 3Yrs & Over 81306 Given 05/28/2007 Influenza Virus 3Yrs & Over 51609 Given 12/05/2006 Tdap - Tetanus/Diptheria/Acellular Pertussis Vital Signs Date Vital Result Comment 08/02/2019 2:06pm Height 56 inches 4'8" Weight 156.12 lb Heart Rate 84 /min BP Systolic Sitting 123 mmHg BP Diastolic Sitting 77 mmHg Body Temperature 97.0 F O2 % BldC Oximetry 94 % BMI (Body Mass Index) 35.0 kg/m2 06/14/2019 4:18pm Height 56 inches 4'8" Heart Rate 74 /min BP Systolic 139 mmHg BP Diastolic 82 mmHg Body Temperature 97.6 F O2 % BldC Oximetry 97 % Results Test Acquired Date Facility Test Result H/L Range Note Comp Metabolic 07/20/2019 [facility] Sodium 140 mmol/L Normal 135-145 [address] [place] [address] [phone] Potassium 5.0 mmol/L Normal 3.5-5.0 Chloride 104 mmol/L Normal 101-111 Co2 Carbon Dioxide 28 mmol/L Normal 22-32 Anion Gap 8 mmol/L Normal 2-11 Glucose 112 mg/dL High 70-100 Blood Urea Nitrogen 23 mg/dL Normal 6-24 Creatinine 0.86 mg/dL Normal 0.51-0.95 BUN/Creatinine Ratio 26.7 High 8-20 Calcium 10.1 mg/dL Normal 8.6-10.3 Total Protein 7.0 g/dL Normal 6.4-8.9 Albumin 4.5 g/dL Normal 3.2-5.2 Globulin 2.5 g/dL Normal 2-4 Albumin/Globulin Ratio 1.8 Normal 1-3 Total Bilirubin 0.60 mg/dL Normal 0.2-1.0 Alkaline Phosphatase 153 U/L High 34-104 Alt 66 U/L High 7-52 Ast 43 U/L High 13-39 Egfr Non- 66.4 >60 Egfr 80.4 >60 1 Laboratory 07/20/2019 [facility] TSH (Thyroid 2.06 Normal 0.34 -5.60 2 test finding 101 Stim Horm) mcIU/[place] [address] [phone] Vitamin D Total 25(Oh) 27.9 ng/mL Normal 20-50 3 Lipid Profile 07/20/2019 [facility] Triglycerides 218 mg/dL 4 (Trig/Chol/HDL) [address] [place] [address] [phone] Cholesterol 263 mg/dL 5 HDL Cholesterol 46.2 mg/dL 6 LDL Cholesterol 173 mg/dL 7 Laboratory test finding 06/14/2019 [facility] LDH 196 U/L Normal 140-271 [address] [place] [address] [phone] Creatine Kinase(CK) 102 U/L Normal 10-223 C Reactive Protein 3.52 mg/L Normal <8.01 Alkaline Phosphatase 136 U/L High 34-104 1 Because ethnic data is not always [...] 5 Kidney failure <15 (or dialysis) 2 FASTING 10 HOUR 3 Total 25-Hydroxyvitamin D2 and D3 (25-OH-VitD) <10 ng/mL (severe deficiency) 10-19 ng/mL (mild to moderate deficiency) 20-50 ng/mL (optimum levels) 51-80 ng/mL (increased risk of hypercalciuria) >80 ng/mL (toxicity possible) 4 Desirable: <150 Borderline High: 150-199 High: 200-499 Very High: >500 5 Desirable: <200 Borderline High: 200-239 High: >239 6 Low: <40 Desirable: 40-60 High: >60 7 Desirable: <100 Near Optimal: 100-129 Borderline High: 130-159 High: 160-189 Very High: >189 Procedures Date Code Description Status 10/01/2018 [id number] Mammogram Completed 07/25/2017 [id number] Mammogram Completed 06/22/2016 [id number] Colonoscopy Completed 06/10/2016 [id number] Mammogram Completed 06/05/2015 [id number] Mammogram Completed 05/09/2014 [id number] Mammogram Completed 05/08/2013 [id number] Mammogram Completed 04/27/2012 [id number] Mammogram Completed 04/15/2011 [id number] Mammogram Completed 01/14/2010 [id number] Mammogram Completed Medical Devices Description No Information Available Encounters Type Date Location Provider Dx Diagnosis Office Visit 06/14/2019 [facility] [employer] Internal Isabel Granados MD M79.651 Pain in right 4:20p Medicine - Ccmob thigh M79.652 Pain in left thigh Z85.51 Personal history of malignant neoplasm of bladder Assessments Date Code Description Provider 08/02/2019 Z00.00 Encounter for general adult medical Yesenia Lira.Jana examination without abnormal findings 08/02/2019 Z12.31 Encounter for screening mammogram for Macy Enriquez N.P. malignant neoplasm of breast 08/02/2019 E78.00 Pure hypercholesterolemia, unspecified Macy Enriquez N.P. 08/02/2019 K21.9 Gastro-esophageal reflux disease without Macy Enriquez N.P. esophagitis 08/02/2019 I47.2 Ventricular tachycardia Macy Enriquez N.P. 08/02/2019 F41.1 Generalized anxiety disorder Macy Enriquez N.PMichael 08/02/2019 N77.1 Vaginitis, vulvitis and vulvovaginitis in Macy Enriquez N.PMichael diseases classified elsewhere 06/14/2019 M79.651 Pain in right thigh Isabel Granados MD 06/14/2019 M79.652 Pain in left thigh Isabel Granados MD 06/14/2019 Z85.51 Personal history of malignant neoplasm of Isabel Granados MD bladder Plan of Treatment Future Appointment(s):08/18/2020 2:20 pm - Macy Enriquez N.P. at [facility] Internal Medicine - [facility]08/12/2019 8:15 am - Ninfa Ernandez M.D. at [facility] at [id number]/02/2019 - Macy Enriquez N.P.Z00.00 Encounter for general adult medical examination without abnormal findingsComments:For your routine health maintenance: I would encourage you to start a regular exercise program. Yourcolonoscopy is up to date. You had this in 2016. You will need this repeated in 2020. [...] Encounter for screening mammogram for malignant neoplasm of breastComments:I have ordered your routine screening mammogram, you are due in September. The imaging department will give you your results at the time of your visit. I encourage you to do self exams. If you should notice any masses or thickening, please give the office a call.E78.00 Pure hypercholesterolemia, unspecifiedNew Medication:Rosuvastatin Calcium 20 mg - 1 by mouth every dayComments:Your recent labs to check your cholesterol showed that your cholesterol levels are quite elevated. When I put your numbers into the risk assessment tool your 10 year risk for a cardiovascular event is 7.4%. The [employer] advises treatment for this risk level. I am increasing your Rosuvastatin to 20 mg. take this at bedtime.K21.9 Gastro-esophageal reflux disease without esophagitisComments:For your esophageal reflux: Continue with your current management. I advise you to avoid food triggers. These include: Spicy, greasy, and acidic foods, along with coffee and alcohol. If at any point you feel your symptoms are not well controlled, please contact the office.I47.2 Ventricular tachycardiaComments:For your rapid heart rate continue to take Metoprolol. If at any point this is not working please contact the office.F41.1 Generalized anxiety disorderComments: For your anxiety:Continue your current management. If at ay time you feel your symptoms are not wellcontrolled, please contact the office.N77.1 Vaginitis, vulvitis and vulvovaginitis in diseases classified elsewhereNew Medication: Clobetasol Propionate 0.05 % - use on affected area 2x daily for 2 weeks then 2 week offComments:For your vulvar irritation I have prescribed Clobetasol cream. Apply this twice daily for up to 2 weeks. This should relieve your symptoms. If this does not help, please contact the office. Functional Status Description No Information Available Mental Status Description No Information Available Referrals Description No Information Available
--- OUTSIDE RECORDS SUMMARY | 2019-09-28 07:08 | XMS REPORT | Continuity of Care Document ---
:1955 External Reference #:[id number] Author Name Macy Enriquez N.P. (transmitted by agent of provider Helena Osorio) Address [address], [place] [address] Care Team Providers Name Role Phone Zohra Klein MD - Internal Care Team Information Geotechnical Intern [phone] Medicine Sofie Angeles MD - Care Team Information Geotechnical Intern [phone] Dermatology Problems Active Problems Provider Date Hyperlipidemia Macy Enriquez N.Jana Onset: 04/08/2011 Paroxysmal ventricular tachycardia Brent Phillips M.D., [facility], [facility] Onset: Malignant tumor of urinary bladder Macy Enriquez N.P. Onset: 04/08/2011 Premature beats Brent Phillips M.D., [facility], [facility] Onset: 12/19/2013 Palpitations Brent Phillips M.D., [facility], [facility] Onset: 12/18/2014 Social History Type Date Description [...] Burrell M.D., 02/18/2015 Tetrofosmin, Per Unit Dose [facility] Up To 40 Millicuries Injection Technetium TC 99M Stephen Garibay M.D. 02/18/2015 Tetrofosmin, Per Unit Dose Up To 40 Millicuries Injection Celestone 3 mg and 3mg Ayesha Lynn, 05/28/2014 Injection M.DMichael Technetium TC 99M Brent Phillips M.D., [facility], 05/14/2013 Tetrofosmin, Per Unit Dose [facility] Up To 40 Millicuries Injection Celestone 3 [...] CPT Code Status Date Vaccine Lot # [id number] Given 04/30/2019 Zoster (Shingles) Vaccine (HZV), Recombinant, Subunit, Adjuvanted 04022 Given 05/05/2018 Influenza Virus Vaccine, Quadrivalent, Split, Preservative Free 09778 Given 04/10/2017 Pneumonia Vaccine 14954 Given 04/10/2017 Influenza Virus Vaccine, Quadrivalent, Split, Preservative Free 02769 Given 05/05/2016 Tdap - Tetanus/Diptheria/Acellular Pertussis Q2035 Given 04/20/2016 Afluria Vaccine 75149 Given 05/11/2015 Zoster (Zostavax) Q2035 Given 04/27/2015 Afluria Vaccine 67065 Given 04/27/2015 Pneumococcal Conjugate Vaccine 13 Valent For Intramuscular Use 54637 Given 04/22/2014 Influenza Virus 3Yrs & Over 45207 Given 04/22/2014 Influenza Virus 3Yrs & Over Q2035 Given 04/17/2013 Afluria Vaccine Q2038 Given 04/19/2012 Fluzone Vaccine 62657 Given 04/28/2011 Influenza Virus 3Yrs & Over 44543 Given 05/28/2007 Influenza Virus 3Yrs & Over 62728 Given 12/05/2006 Tdap - Tetanus/Diptheria/Acellular Pertussis Vital [...] Result H/L Range Note Comp Metabolic 07/20/2019 [facility] Sodium 140 mmol/L Normal 135-145 Panel [address] [place] [address] [phone] Potassium 5.0 mmol/L Normal 3.5-5.0 Chloride 104 [...] >60 Egfr 80.4 >60 1 Laboratory 07/20/2019 [facility] TSH (Thyroid 2.06 Normal 0.34 -5.60 2 test finding 101 Stim Horm) mcIU/[place] [address] [phone] Vitamin D Total 25(Oh) 27.9 ng/mL Normal 20-50 3 Lipid Profile 07/20/2019 [facility] Triglycerides 218 mg/dL 4 (Trig/Chol/HDL) [address] [place] [address] [phone] Cholesterol 263 mg/dL 5 HDL Cholesterol 46.2 mg/dL 6 LDL Cholesterol 173 mg/dL 7 Laboratory test finding 06/14/2019 [facility] LDH 196 U/L Normal 140-271 [address] [place] [address] [phone] Creatine Kinase(CK) 102 U/L Normal 10-223 C [...] >189 Procedures Date Code Description Status 10/01/2018 [id number] Mammogram Completed 07/25/2017 [id number] Mammogram Completed 06/22/2016 [id number] Colonoscopy Completed 06/10/2016 [id number] Mammogram Completed 06/05/2015 [id number] Mammogram Completed 05/09/2014 [id number] Mammogram Completed 05/08/2013 [id number] Mammogram Completed 04/27/2012 [id number] Mammogram Completed 04/15/2011 [id number] Mammogram Completed 01/14/2010 [id number] Mammogram Completed Medical Devices Description No Information Available Encounters Type Date Location Provider Dx Diagnosis Office Visit 06/14/2019 Post Acute Care Nurse Internal Isabel Granados MD M79.651 Pain in [...] 2:20 pm - Macy Enriquez N.P. at [facility] Internal Medicine - [facility]08/12/2019 8:15 am - Ninfa Ernandez M.D. at [facility] at [place]08/02/2019 - Macy Enriquez N.P.Z00.00 Encounter for general [...] for a cardiovascular event is 7.4%. The [employer] advises treatment for this [...]
--- OUTSIDE RECORDS SUMMARY | 2019-09-28 07:08 | XMS REPORT | Continuity of Care Document ---
:1955 External Reference #:[id number] Author Name Ninfa Ernandez M.D. (transmitted by agent of provider Aisha Shaw) Address [address] [place] [address] [place] [address] Care Team Providers Name Role Phone Zohra Klein MD - Internal Care Team Information Bioinformatics Computer Scientist [phone] Medicine Sofie Angeles MD - Care Team Information Bioinformatics Computer Scientist [phone] Dermatology Problems Active Problems Provider Date Hyperlipidemia Macy Enriquez, N.P. Onset: 04/08/2011 Paroxysmal ventricular tachycardia Brent Phillips M.D., [facility] Onset: Malignant tumor of urinary bladder Macy Enriquez, N.P. Onset: 04/08/2011 Premature beats Brent Phillips M.D., [facility] Onset: 12/19/2013 Palpitations Brent Phillips M.D., [facility] Onset: 12/18/2014 Social History Type Date Description Comments Sex Unknown ETOH Use Denies alcohol use Tobacco Use Start: Unknown End: Patient is a former smoker Unknown Recreational Drug Use Never Used Drugs Smoking Status Reviewed: 08/12/19 Patient is a former smoker Exercise Type/Frequency [...] M.D. 11/29/2017 Injection Depomedrol 40MG Trisha Munoz RPA-Usha 03/08/2017 Injection Depomedrol 40MG SULAIMAN Peterson 07/20/2016 Injection Technetium TC 99M Zackery Burrell M.D., 02/18/2015 Tetrofosmin, Per Unit Dose [facility] Up To 40 Millicuries Injection Technetium TC 99M Stephen Garibay M.D. 02/18/2015 Tetrofosmin, Per Unit Dose Up To 40 Millicuries Injection Celestone 3 mg and 3mg Ayesha Lynn, 05/28/2014 Injection M.DMichael Technetium TC 99M Brent Phillips M.D., [facility], 05/14/2013 Tetrofosmin, Per Unit Dose [facility] Up To 40 Millicuries Injection Celestone 3 mg and 3mg Ayesha Lynn, 01/23/2013 Injection M.DMichael Celestone 3 mg and 3mg Ayesha Lynn, 01/23/2013 Injection M.D. Celestone 3 mg and 3mg Ayesha Snowden-Young, 01/09/2013 Injection M.D. Celestone 3 mg and 3mg Ayesha Snowden-Young, 01/09/2013 Injection M.D. Celestone 3 mg and 3mg Ayesha Snowden-Young, 01/09/2013 Injection M.D. Celestone 3 mg and 3mg Ayesha Snowden-Young, 01/09/2013 Injection M.D. Immunizations CPT Code Status Date Vaccine Lot # [id number] Given 04/30/2019 Zoster (Shingles) Vaccine (HZV), Recombinant, Subunit, Adjuvanted 65237 Given 05/05/2018 Influenza Virus Vaccine, Quadrivalent, Split, Preservative Free 38203 Given 04/10/2017 Pneumonia Vaccine 95260 Given 04/10/2017 Influenza Virus Vaccine, Quadrivalent, Split, Preservative Free 04453 Given 05/05/2016 Tdap - Tetanus/Diptheria/Acellular Pertussis Q2035 Given 04/20/2016 Afluria Vaccine 58608 Given 05/11/2015 Zoster (Zostavax) Q2035 Given 04/27/2015 Afluria Vaccine 73673 Given 04/27/2015 Pneumococcal Conjugate Vaccine 13 Valent For Intramuscular Use 42499 Given 04/22/2014 Influenza Virus 3Yrs & Over 59834 Given 04/22/2014 Influenza Virus 3Yrs & Over Q2035 Given 04/17/2013 Afluria Vaccine Q2038 Given 04/19/2012 Fluzone Vaccine 44132 Given 04/28/2011 Influenza Virus 3Yrs & Over 56163 Given 05/28/2007 Influenza Virus 3Yrs & Over 45224 Given 12/05/2006 Tdap - Tetanus/Diptheria/Acellular Pertussis Vital Signs Date Vital Result Comment 08/12/2019 8:14am Height 56 inches 4'8" Weight 156.00 lb Heart Rate 90 /min BP Systolic 122 mmHg BP Diastolic 90 mmHg Respiratory Rate 18 /min Body Temperature 98.0 F Pain Level 3 BMI (Body Mass Index) 35.0 kg/m2 08/02/2019 2:06pm Height 56 inches 4'8" Weight 156.12 lb Heart Rate 84 /min BP Systolic Sitting 123 mmHg BP Diastolic Sitting 77 mmHg Body Temperature 97.0 F O2 % BldC Oximetry 94 % BMI (Body Mass Index) 35.0 kg/m2 Results Test Acquired Date Facility Test Result H/L Range Note Comp Metabolic 07/20/2019 [facility] Sodium 140 mmol/L Normal 135-145 [address] [place] [address] [phone] Potassium 5.0 mmol/L Normal 3.5-5.0 Chloride 104 [...] >60 Egfr 80.4 >60 1 Laboratory 07/20/2019 [facility] TSH (Thyroid 2.06 Normal 0.34 -5.60 2 test finding 101 Stim Horm) mcIU/[place] [address] [phone] Vitamin D Total 25(Oh) 27.9 ng/mL Normal 20-50 3 Lipid Profile 07/20/2019 [facility] Triglycerides 218 mg/dL 4 (Trig/Chol/HDL) [address] [place] [address] [phone] Cholesterol 263 mg/dL 5 HDL Cholesterol 46.2 mg/dL 6 LDL Cholesterol 173 mg/dL 7 Laboratory test finding 06/14/2019 [facility] LDH 196 U/L Normal 140-271 [address] [place] [address] [phone] Creatine Kinase(CK) 102 U/L Normal 10-223 C [...] High: >189 Procedures Date Code Description Status 08/12/2019 46664 Inject Tendon Sheath Or Ligament Aponeurosis Eg Plantar Completed Fascia 10/01/2018 [id number] Mammogram Completed 07/25/2017 [id number] Mammogram Completed 06/22/2016 [id number] Colonoscopy Completed 06/10/2016 [id number] Mammogram Completed 06/05/2015 [id number] Mammogram Completed 05/09/2014 [id number] Mammogram Completed 05/08/2013 [id number] Mammogram Completed 04/27/2012 [id number] Mammogram Completed 04/15/2011 [id number] Mammogram Completed 01/14/2010 [id number] Mammogram Completed Medical Devices Description No Information Available Encounters Type Date Location Provider Dx Diagnosis Office Visit 08/02/2019 [facility] Internal Macy Varn, Z00.01 [facility] w abnormal findings Z12.31 Encntr screen mammogram for malignant neoplasm of breast E78.00 Pure hypercholesterolemia, unspecified K21.9 Gastro-esophageal reflux disease without esophagitis I47.2 Ventricular tachycardia F41.1 Generalized anxiety disorder N76.0 Acute vaginitis Office Visit 06/14/2019 4:20p [facility] Internal Isabel Granados MD M79.651 Pain in right Medicine - [facility] thigh M79.652 Pain in left thigh Z85.51 Personal history of malignant neoplasm of bladder Assessments Date Code Description Provider 08/12/2019 M65.332 Trigger finger, left middle finger Ninfa Ernandez M.D. 08/02/2019 Z00.01 Encounter for general adult medical Macy Enriquez, N.P. examination with abnormal findings 08/02/2019 Z12.31 Encounter for screening mammogram for Macy Enriquez, N.P. malignant neoplasm of breast 08/02/2019 E78.00 Pure hypercholesterolemia, unspecified Macy Stroudn, N.P. 08/02/2019 K21.9 Gastro-esophageal reflux disease without Macy Varn, N.P. esophagitis 08/02/2019 I47.2 Ventricular tachycardia Macy Enriquez, N.P. 08/02/2019 F41.1 Generalized anxiety disorder Macy Enriquez, N.P. 08/02/2019 N76.0 Acute vaginitis Macy Enriquez, N.P. 06/14/2019 M79.651 Pain in right thigh Isabel Granados MD 06/14/2019 M79.652 Pain in left thigh Isabel Granados MD 06/14/2019 Z85.51 Personal history of malignant neoplasm of Isabel Granados MD bladder Plan of Treatment Future Appointment(s):08/18/2020 2:20 pm - Macy Enriquez N.P. at [facility] Internal Medicine - [facility]08/12/2019 - Ninfa Ernandez M.D.M65.332 Trigger finger, left middle fingerFollow up:Follow up: As needed Functional Status Description No Information Available Mental Status Description No Information Available Referrals Description No Information Available
[2019-09-28 07:16] VITALS: BP 136/74
--- NOTE | 2019-09-28 07:30 | UC ---
UC General HPI - HPI Summary HPI Summary: 63 yo with acute onset of vomiting and non-bloody diarrhea yesterday, with mild abdominal crampin. No fever, no bloody or mucousy stoo, negative hx for inflammatory bowel disease. Last vomited 24 hours ago, stools have been profuse with some fecal incontinence. Concerned about gtravel tomorrow. She has not taken her metoprolol this morning. - History of Current Complaint Chief Complaint: UCGeneralIllness Stated Complaint: NAUSEA,VOMITTING Time Seen by Provider: 09/28/19 07:20 Hx Obtained From: Patient Hx Last Menstrual Period: post menopause Onset/Duration: Sudden Onset, Lasting Days - 2 Timing: Intermittent Episodes Lasting: - minutes Onset Severity: Moderate Current Severity: Mild Pain Intensity: 0 Associated Signs & Symptoms: Positive: Diarrhea, Decreased Oral Intake, Headache - mild, Vomiting. Negative: Abdominal Pain, Back Pain, Confusion, Chest Pain, Fever - Allergy/Home Medications Allergies/Adverse Reactions: Allergies Allergy/AdvReac Type Severity Reaction Status Date / Time No Known Allergies Allergy Verified 09/28/19 07:16 PMH/Surg Hx/FS Hx/Imm Hx Cardiovascular History: Other - tachycardia GI/ History: Gastroesophageal Reflux, Other - hx of hematuria, monitored regularly for precancerous bladder changes - Surgical History Surgical History: Yes Surgery Procedure, Year, and Place: CARPAL TUNNEL AND TRIGGER FINGER SURGERIES; . PINS AND PLATES IN WRIST (REMOVED); - Family History Known Family History: Positive: Cardiac Disease - mother had heart disease - Social History Occupation: Employed Full-time Lives: With Family Alcohol Use: None Substance Use Type: None Smoking Status (MU): Former Smoker When Did the Patient Quit Smoking/Using Tobacco: 40 years Review of Systems All Other Systems Reviewed And Are Negative: Yes Constitutional: Positive: Fatigue Skin: Positive: Negative Eyes: Positive: Negative ENT: Positive: Negative Respiratory: Positive: Negative Cardiovascular: Positive: Negative Gastrointestinal: Positive: Vomiting, Diarrhea Genitourinary: Positive: Hematuria - chronic Motor: Positive: Negative Neurovascular: Positive: Negative Musculoskeletal: Positive: Negative Neurological/Mental Status: Positive: Headache Psychological: Positive: Negative Is Patient Immunocompromised?: No Physical Exam Triage Information Reviewed: Yes Appearance: Well-Appearing, No Pain Distress, Obese Vital Signs: Initial Vital Signs Temp 98.1 F 09/28/19 07:09 Pulse 127 09/28/19 07:09 Resp 18 09/28/19 07:09 BP 136/74 09/28/19 07:09 Pulse Ox 96 09/28/19 07:09 Eye Exam: Normal ENT: Positive: Pharynx normal, Other - mucous membranes mildly dry Neck: Positive: Supple, Nontender, No Lymphadenopathy Respiratory: Positive: Lungs clear, Normal breath sounds Cardiovascular: Positive: No Murmur, Pulses Normal, Tachycardia Abdomen Description: Positive: Nontender, No Organomegaly, Soft Bowel Sounds: Positive: Present Musculoskeletal Exam: Normal Neurological Exam: Normal Psychological Exam: Normal Skin Exam: Normal Course/Dx - Course Course Of Treatment: Continue symptomatic treatment. Given pending trial, suggested imodium. Focus on hydration. - Differential Dx - Multi-Symptom Differential Diagnoses: Other - gastroenteritis, inflammatory bowel disease - Diagnoses Provider Diagnosis: Gastroenteritis Discharge ED - Sign-Out/Discharge Documenting (check all that apply): Patient Departure All imaging exams completed and their final reports reviewed: No Studies - Discharge Plan Condition: Stable Disposition: HOME Patient Education Materials: Gastroenteritis (ED), Nutrition Tips for Relief of Diarrhea (ED) Referrals: Macy Enriquez NP [Primary Care Provider] - Additional Instructions: Focus on hydration with clear fluids and soup broths, introducing foods such as toast, soup broths, cooked vegetables. As reviewed, apples, bananas and watermelon should be tolerated. You might try use of imodium 2mg once or twice today to slow diarrhea, but avoid over use so that you don't become constipated. Please take your metoprolol when you get home. Follow up if you have decreased urine output, increasing abdominal pain or fever. - Billing Disposition and Condition Condition: STABLE Disposition: Home
== END 2019-09-28 07:43 | disposition home or self-care (01) ==
LOC: UCEAST 07:00
DX: K52.9 Noninfective gastroenteritis and colitis, unspecified (principal); R31.9 Hematuria, unspecified; Z87.891 Personal history of nicotine dependence
CPT/HCPCS: 99211; G0463